=== PATIENT | female | born 1940 | race Caucasian/White ===

== ENCOUNTER 2018-11-19 23:53 | Inpatient (IN) | payer MEDICARE, BC ==
--- NOTE | 2018-11-20 00:07 | ED ---
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 Her says she fell when she was struggling putting up her pants. Her reports a Hx of cognitive impairment. She reports pain is between her knee and her upper thigh on the right side. She rates her pain 7/10 in severity. - History of Current Complaint Stated Complaint: "R HIP PAIN" PER EMS Time Seen by Provider: 11/20/18 00:01 Hx Obtained From: Patient, Family/Foreclosure Field Inspector Mechanism Of Injury: Fall From A Standing Position Pain Intensity: 7 Pain Scale Used: 0-10 Numeric - Allergies/Home Medications Allergies/Adverse Reactions: Allergies Allergy/AdvReac Type Severity Reaction Status Date / Time No Known Allergies Allergy Verified 11/20/18 00:19 Home Medications: Home Medications Donepezil HCl 10 mg PO BID 11/20/18 [History Confirmed 11/20/18] Memantine HCl 10 mg PO BID 11/20/18 [History Confirmed 11/20/18] PMH/Surg Hx/FS Hx/Imm Hx Cardiovascular History: Denies: Hx Pacemaker/ICD Sensory History: Denies: Hx Hearing Aid Neurological History: Reports: Other Neuro Impairments/Disorders - "mild cognitive disorder" Psychiatric History: Denies: Hx Panic Disorder - Surgical History Surgery Procedure, Year, and Place: CATARACTS,HYSTERECTOMY Infectious Disease History: Denies: Traveled Outside the [place] in Last 30 Days - Family History Known Family History: Negative: Other - negativ colorectal CA - Social History Alcohol Use: Rare Substance Use Type: Reports: None Smoking Status (MU): Never Smoked Tobacco Review of Systems Negative: Fever Positive: Other - Right hip, RLE pain. All Other Systems Reviewed And Are Negative: Yes Physical Exam - Summary Physical Exam Summary: Appearance: well appearing, no pain distress Skin: warm, dry, reflects adequate perfusion Head/face: normal. Contusion on her right occiput. Eyes: EOMI, PERRL. ENT: mucous membranes moist. She has hearing aids. Neck: supple, non-tender. Ranges her neck without tenderness. Respiratory: CTA, breath sounds present Cardiovascular: RRR, pulses symmetrical Abdomen: non-tender, soft Bowel Sounds: present Musculoskeletal: normal, strength/ROM intact. Tenderness with flexion at the right hip. No pain in right knee or thigh. Right hip is externally rotated. Neuro: normal, sensory motor intact, A&Ox3 Triage Information Reviewed: Yes Vital Signs On Initial Exam: Temp Pulse Resp BP Pulse Ox 98.5 F 69 18 162/71 98 11/20/18 00:10 11/20/18 00:10 11/20/18 00:40 11/20/18 00:10 11/20/18 00:10 Vital Signs Reviewed: Yes Diagnostics - Vital Signs Temp Pulse Resp BP Pulse Ox 98.5 F 69 18 162/71 98 11/20/18 00:10 11/20/18 00:10 11/20/18 00:40 11/20/18 00:10 11/20/18 00:10 - Laboratory Result Diagrams: 11/20/18 00:18 11/20/18 00:18 Lab Statement: Any lab studies that have been ordered have been reviewed, and results considered in the medical decision making process. - Radiology CXR Radiology Interpretation Completed By: ED Physician Summary of Radiographic Findings: No acute process. Pending offical radiologist report. Hip XR Radiology Interpretation Completed By: ED Physician Summary of Radiographic Findings: Right femoral neck fracture. Pending official radiologist report. - CT Brain CT Interpretation Completed By: ED Physician Summary of CT Findings: No acute process. Pending official radiologist report. - EKG 0123 Cardiac Rate: NL - 70 BPM EKG Rhythm: Sinus Rhythm ST Segment: Non-Specific Summary of EKG Findings: Normal axis, normal interval. Lower Extremity Course/Dx - Course Course Of Treatment: Nurses' notes reviewed. Patient with painful, externally rotated right hip after fall. Head CT negative. X-ray of the pelvis indicates right femoral neck fracture. Orthopedic surgeon was contacted and will see the patient in consultation. Hospitalist to admit. No blood thinners other than daily baby aspirin. Prado catheter placed and patient treatment for discomfort. - Diagnoses Differential Diagnosis/HQI/PQRI: Positive: Contusion, Dislocation, Fracture ( Closed) Provider Diagnoses: Fracture of femoral neck, right - Physician Notifications Discussed Care Of Patient With: Angelica Zurita - Orthopedic Surgeon Time Discussed With Above Provider: 01:33 - Patient admitted by Dr. aKtz, Hospitalist. Dr. Zurita notified. Instructed by Provider To: Admit As Inpatient Discharge - Sign-Out/Discharge Documenting (check all that apply): Patient Departure - Admission - Discharge Plan Condition: Fair Disposition: ADMITTED TO [facility] - Billing Disposition and Condition Condition: FAIR Disposition: Admitted to [facility] - Attestation Statements Document Initiated by Beni: Yes Documenting Scribe: Kam Parra Provider For Whom Beni is Documenting (Include Credential): Juan Stringer MD Scribe Attestation: Kam Garcia, scribed for Juan Stringer MD on 11/20/18 at 0237. Scribe Documentation Reviewed: Yes Provider Attestation: The documentation as recorded by the Kam handley accurately reflects the service I personally performed and the decisions made by , Juan Stringer MD Status of Scribe Document: Viewed
[2018-11-20] MEDS ORDERED: Ondansetron INJ* 2 MG/ML VIAL IV ONE (00:08)
[2018-11-20] MEDS ORDERED: Morphine 4 MG/ML VIAL (1 ml) 4 MG/ML VIAL IV ONE (00:09)
[2018-11-20 00:49] LABS: Albumin 4.1 g/dL (3.2-5.2); Albumin/Globulin Ratio 1.7 (1-3); BUN/Creatinine Ratio 22.4 (8-20); Calcium 9.6 mg/dL (8.6-10.3); EGFR African American 66.1 (>60); EGFR Non-African American 54.6 (>60); Globulin 2.4 g/dL (2-4); Potassium 3.3 mmol/L (3.5-5.0); Total Bilirubin 0.4 mg/dL (0.2-1.0); Total Protein 6.5 g/dL (6.4-8.9)
[2018-11-20 00:55] LABS: INR 0.97 (0.82-1.09)
[2018-11-20 01:00] LABS: ABS Basophils 0.1 10^3/ul (0-0.2); ABS Eosinophils 0.1 10^3/ul (0-0.6); ABS Lymphocytes 2.3 10^3/ul (1.0-4.8); ABS Monocytes 1.2 10^3/ul (0-0.8); ABS Neutrophils 7.9 10^3/ul (1.5-7.7); Hematocrit 39 % (35-47); Lymphocyte % 20.1 %; Mean Corpuscular HGB Conc 33 g/dL (31-36); Mean Corpuscular Hemoglobin 32 pg (27-31); Mean Corpuscular Volume 96 fL (80-97); Mean Platelet Volume 8.6 fL (7.4-10.4); Platelet Count 212 10^3/uL (150-450); Red Blood Count 4.09 10^6 /uL (3.70-4.87); Red Cell Distribution Width 14 % (10-15); White Blood Count 11.6 10^3/uL (3.5-10.8)
[2018-11-20] MEDS ORDERED: NS 0.9% 1000 ML** 1,000 ML IV SCH (02:00)
[2018-11-20] MEDS ORDERED: Ketorolac INJ* 15 MG/ML 1 ML VIAL IV PUSH PRN (02:03)
[2018-11-20] MEDS ORDERED: Morphine INJ* 2 MG/ML 1 ML SYRINGE (TWO MG - NEW SYRINGE VERSION) IV PRN (02:03)
[2018-11-20] MEDS ORDERED: Ondansetron INJ* 2 MG/ML VIAL IV PRN (03:00)
--- NOTE | 2018-11-20 06:33 | HP ---
HISTORY AND PHYSICAL: DATE OF ADMISSION: 11/20/18 PRIMARY CARE PROVIDER: Long Jacobs MD., and Eliane Deshpande NP. RESIDENTIAL SUBCONTRACTOR: Johnie Gomez, the patient's . CODE STATUS: Full. SOURCE OF INFORMATION: HPI is obtained from . The patient is a poor historian secondary to clinical status. CHIEF COMPLAINT: Fall and right hip pain. HISTORY OF PRESENT ILLNESS: This is an 78-year-old female with a past medical history of dementia, oriented to self at baseline and independent in most ADLs with the exception of dressing, otherwise healthy woman, who resides at home with her , who is presenting tonight status post mechanical fall. She was struggling to pull up her stockings and sitting on the bed, slipped and fell with her socks against the hardwood floors and was found out of bed and had right hip pain and was unable to stand. Thus her called the emergency room. She continues to report pain between her knee and her upper thigh on the right side. Baseline functional status: She is independent in most ADLs with the exception of dressing and dependent in all IADLs, Oriented to self at baseline only. Ambulates independently. EMERGENCY ROOM COURSE: In the emergency room, vital signs are temperature 98.5 , pulse rate 69, respiratory rate 16, oxygen saturation 98% on room air, and blood pressure 162/71. Labs were done, which showed mild leukocytosis to 11, potassium of 3.3, glucose of 125, but otherwise unremarkable. Imaging was done , including a head CT that showed no acute intracranial pathology. Chest x-ray , which showed no acute cardiopulmonary disease and a hip and pelvis x-ray, which showed a right femoral neck fracture. EKG was done that showed normal sinus rhythm, QTc of 461. Orthopedic Surgery was made aware and asked the hospitalist team to admit the patient for further evaluation. PAST MEDICAL HISTORY: Dementia. Per last MMSE is 15/30. PAST SURGICAL HISTORY: History of hysterectomy, partial. MEDICATIONS: 1. Memantine 10 mg p.o. b.i.d. 2. Estradiol 0.03 mg daily topically. 3. Donepezil 10 mg p.o. b.i.d. ALLERGIES: No known drug allergies. FAMILY HISTORY: Her mother from [place]. Her father is from heart disease. 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 Currently resides with her who is her primary caregiver. She is independent in most ADLs with the exception of dressing and dependent in all IADLs. She is a former smoker for 1 to 2 years, having quit over 30 years ago. She is a former social drinker, with no alcohol use in the last 20 years. She is a never illicit user. She currently ambulates unassisted. REVIEW OF SYSTEMS: Largely unable to be obtained directly from the patient secondary to her clinical status. reviews the following. Constitutional: He denies fevers, chills, malaise. HEENT: Denies headaches, vision changes or complaints of sore throat. Cardiovascular: Denies chest pain , palpitations or orthopnea. Respiratory: Denies shortness of breath, cough or pleuritic chest pain. GI: Negative for nausea, vomiting, diarrhea or abdominal pain. : Negative for dysuria or hematuria. Musculoskeletal: Negative for myalgias, arthralgias or weakness with the exception of current right hip pain. Skin: Negative for rashes or lesions. Neurologic: Negative for new focal weakness or numbness. Psychiatric: Negative for new depression or anxiety. Endocrine: Negative for polyuria or polydipsia. Heme: Negative for bruising, bleeding or lymphadenopathy. PHYSICAL EXAMINATION GENERAL APPEARANCE: This is a pleasant, hard of hearing woman, in no acute distress, lying in a stretcher, oriented to herself at baseline. Repeats herself and follows commands. VITAL SIGNS: At the time of physical exam, blood pressure is 150/80, pulse rate 70, respiratory rate 18, satting 100% on room air. HEENT: Pupils are equal and reactive. Extraocular muscles are intact. Mucous membranes are moist. No oral lesions. NECK: Supple with no supraclavicular or cervical lymphadenopathy. LUNGS: Clear to auscultation bilaterally. CARDIAC: Regular rate and rhythm with no murmurs, rubs or gallops. Belly is soft, nontender, nondistended, with normoactive bowel sounds. MUSCULOSKELETAL: She moves all 4 limbs spontaneously. Sensation intact in all 4 limbs. Her right leg is externally rotated and turned out. EXTREMITIES: She has 2+ pulses in bilateral lower extremities, warm and well- perfused. NEURO: Cranial nerves II through XII are intact. She is oriented to herself. She has no focal neurologic deficits. SKIN: Without rashes or lesions. DIAGNOSTIC STUDIES/LAB DATA: CBC shows white blood cell count of 11.6, hemoglobin 13, hematocrit 39, platelets 212. INR is 0.97. Sodium 139, potassium 3.3, chloride 106, carbon dioxide 23, anion gap 10, BUN 22, creatinine 0.98, glucose 125, lactic acid 1.9. AST 21, ALT 19, alk phos 45. Troponin 0. Albumin 4.1. Imaging: Head CT shows no acute intracranial pathology. Chest x-ray shows no active cardiopulmonary disease. Hip and pelvis x-ray shows right femoral neck fracture. EKG: Normal sinus rhythm, with no active ischemia. Imaging, labs, and EKG reviewed by myself. ASSESSMENT AND PLAN: This is an 78-year-old female with a past medical history of dementia, who is presenting status post mechanical fall with a right femoral neck fracture. She will be admitted for surgical evaluation by the orthopedic team. 1. Right femoral neck fracture: Plan per orthopedic team. Orthopedic surgeons were contacted by emergency room providers. 2. Dementia: [id number] at baseline without behavioral disturbances. Mini-Mental State Examination 15/30 on last testing per . Continue home medications. 3. FEN: N.p.o. for now. 4. DVT: SCDs for now and ultimate anticoagulation plan per orthopedic team, will hold given may be an operative candidate. 5. Code status: Full. 6. Disposition: Stable for admission on the medical service to the surgical short- stay. TIME SPENT: Thirty minutes were spent on the planning of this admission with over half of that spent directly at the bedside with the patient, providing direct patient care. Plan of care was discussed with the patient's , who has no further questions. [id number]/[facility] #: [id number] [facility]
--- NOTE | 2018-11-20 11:05 | PN ---
Subjective Date of Service: 11/20/18 Interval History: Pain control OK. Patient offers no c/o, denies hunger or thirst. Objective Active Medications: Acetaminophen (Tylenol Tab*) 650 mg PO Q6H PRN PRN Reason: FEVER/PAIN Ketorolac Tromethamine (Toradol Inj*) 15 mg IV PUSH Q6H PRN PRN Reason: PAIN Memantine (Namenda Tab*) 10 mg PO BID [facility] Morphine Sulfate (Morphine Inj (Syringe))*) 2 mg IV Q2H PRN PRN Reason: PAIN Last Admin: 11/20/18 04:20 Dose: 2 mg Pto: Donepezil 10mg (Tab) 1 dose PO DAILY [facility] Ondansetron HCl (Zofran Inj*) 4 mg IV Q4H PRN PRN Reason: NAUSEA/VOMITING Potassium Chloride (Klor Con Er Tab*) 20 meq PO BID [facility] Vital Signs - 8 hr 11/20/18 11/20/18 11/20/18 03:22 03:27 04:20 Temperature 98.4 F Pulse Rate 67 Respiratory 16 16 20 Rate Blood Pressure 146/56 (mmHg) O2 Sat by Pulse 100 Oximetry 11/20/18 11/20/18 07:53 07:54 Temperature 98.5 F Pulse Rate 68 Respiratory 18 16 Rate Blood Pressure 146/48 (mmHg) O2 Sat by Pulse 97 Oximetry Oxygen Devices in Use Now: None Appearance: Alert, partly up in bed. In good spirits. Looks comfortable. Eyes: No Scleral Icterus Respiratory: Symmetrical Chest Expansion and Respiratory Effort, Clear to Auscultation, Clear to Percussion Cardiovascular: NL Sounds; No Murmurs; No JVD, RRR, No Edema Extremities: No Edema, No Clubbing, Cyanosis, - Skin: No Rash or Ulcers, No Nodules or Sclerosis, - Neurological: NL Sensation, - - Poor short term memory, Result Diagrams: 11/20/18 00:18 11/20/18 00:18 Assess/Plan/Problems-Billing Assessment: - Patient Problems (1) Hip fracture Current Visit: Yes Status: Acute Code(s): S72.009A - FRACTURE OF UNSP PART OF NECK OF UNSP FEMUR, INIT SNOMED Code(s): 341818355 Comment: Plan for hemiarthroplasty 11/21. Patient medically optimized for surgery. A urine sample can be obtained in the OR for U/A/reflex C&S (family declined Prado). The most likely post-op problem would be delirium, which could as well occur withour surgery. (2) Dementia Current Visit: Yes Status: Acute Code(s): F03.90 - UNSPECIFIED DEMENTIA WITHOUT BEHAVIORAL DISTURBANCE SNOMED Code(s): 36689185 Comment: Poor memory and disoriented but cooperative and calm. I spoke with her about her cognitive function, which has likely declined with the stress of hip fracture, pain, narcotics, hospitalization.
[2018-11-20] MEDS: DONEPEZIL 10 MG PO SCH (11:08)
[2018-11-20] MEDS: Potassium Chlor TAB* 20 MEQ TAB.ER PO SCH ×2 (11:08→21:22)
[2018-11-20] MEDS: MEMANTINE 10 MG PO SCH ×2 (11:09→21:22)
[2018-11-20] MEDS: Acetaminophen TAB* 325 MG PO PRN ×2 (11:09→18:21)
--- NOTE | 2018-11-20 12:07 | CONS ---
ORTHOPEDIC CONSULTATION NOTE: DATE OF CONSULT: 11/20/18 Thank you for this orthopedic consultation. CHIEF COMPLAINT: Right hip pain. HISTORY OF PRESENT ILLNESS: Ms. Gomez is an 78-year-old female who had a mechanical fall off of her bed last evening on 11/19/18. She had immediate 10/ 10 right hip pain and was unable to stand or walk because of the pain. She was brought to [facility] by ambulance and found to have a femoral neck fracture. She has significant dementia at baseline and resides with her who is her primary caregiver. She is independent of most ADLs, but with the exception of dressing, she normally ambulates independently per her . PAST MEDICAL HISTORY: Dementia per , last MMSE is 15/30. PAST SURGICAL HISTORY: Partial hysterectomy. HOME MEDICATIONS: 1. Memantine 10 mg p.o. b.i.d. 2. Estradiol 0.03 mg daily topically. 3. Donepezil 10 mg p.o. b.i.d. ALLERGIES: No known drug allergies. FAMILY HISTORY: Maternal, cancer. Paternal, heart disease. SOCIAL HISTORY: The patient has extensive dementia, resides with her who is her primary caregiver. 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 No tobacco or alcohol use. Normally independent ambulator. REVIEW OF SYSTEMS: A 14 systems reviewed with the patient and her today. Positive for recent fall, right hip pain, memory loss. Otherwise, review of systems is negative or not relevant. PHYSICAL EXAM: General: The patient is a well-nourished female, in no apparent distress, alert and oriented x1. is at her bedside, pleasant mood, appropriate affect. Vitals: Temperature 98.5, pulse 68, blood pressure 146/48. Gait is not assessed. Balance is not assessed. Coordination normal. HEENT: Atraumatic, normocephalic. Pupils equal and reactive to light. Chest: Unlabored breathing. Abdomen: Soft, nontender, nondistended, bowel sounds 4 quadrants. Bilateral Upper Extremities: The patient's skin has some scattered ecchymoses. No open wounds. She can forward flex at the shoulders without instability bilaterally. She has 4+/5 senior engineering manager strength. Full sensation to light touch in all nerve distributions and 2+ palpable radial pulses. No edema, varicosities or hyperreflexia. Right Lower Extremity: The patient's skin is intact. She has no abrasions or open wounds. The leg is shortened and externally rotated. Any motion at the hip or knee causes severe hip pain distally. At the ankle, she demonstrates dorsiflexion, plantar flexion, EHL and FHL. She has full sensation to light touch in all nerve distributions and 2 + palpable DP pulse. No edema or hyperreflexia. Scattered varicosities. Left Lower Extremity: The patient's skin is intact. No abrasions or open wounds. No palpable masses or lymph nodes. She flexes the hip and knee without pain distally. No edema, hyperreflexia or scattered varicosities. 5/5 ankle dorsiflexion and plantarflexion strength. Full sensation to light touch in all nerve distributions and 2+ palpable DP pulse. DIAGNOSTIC STUDIES/LAB DATA: Radiographs: Multiple views of the right hip show displaced femoral neck fracture. Osteopenia is evident. Brain CT from 11/20/18, shows age-related volume loss and chronic microvascular ischemic disease, but no acute intracranial pathology. Her labs show white blood cells 11.6, hematocrit 39, platelets 212, INR 0.97. Sodium 139, potassium 3.3, chloride 106, BUN and creatinine 22 and 0.98. ASSESSMENT AND PLAN: Ms. Gomez is an 78-year-old demented female with displaced right femoral neck fracture. The patient's caregiver and decision maker is her due to her severe dementia. Although the patient can comply with physical exam, she is not competent to decide on surgical options. The patient's and I discussed operative and nonoperative treatment options. The patient's is wary of surgery for several reasons including financial, possible healing without surgery and the risks of surgery. Today, we did spend at least one-half hour or 30 minutes discussing the risks of surgery. Frankly, I have uncomfortable proceeding with surgery today for the patient. Her does not have a solid answer on whether he wishes to proceed. He does understand that my best medical recommendation is to proceed with the right hip hemiarthroplasty. We discussed the risk of morbidity and mortality including but not limited to bleeding, infection, damage to nearby structures, continued pain, need for further surgery, intraoperative fracture, nerve palsy, dislocation, leg length discrepancy, stroke, heart attack, blood clot, and . At this time, he is not sure that he wishes to proceed. He understands I will respect his wishes if he chooses nonoperative care. I did explain to him the risks of nonoperative care including decubitus ulcers, respiratory problems, and . For now, the patient will be on bedrest with p.r.n. analgesia. She should have a Prado catheter. She can eat today. Please make her n.p.o. after midnight for possible surgery tomorrow. The patient's will think this over and contact his insurance company. We will plan on a possible right hip hemiarthroplasty tomorrow on 11/21/18. I am available at 5 p.m. to do the surgery if he wishes to proceed. [id number]/[facility] #: [id number] [facility]
--- NOTE | 2018-11-21 06:53 | PN ---
Progress Note - Progress Note Date of Service: 11/21/18 SOAP: Subjective: Pt. is alert and nad. at bedside. Objective: Vital Signs: Temp Pulse Resp BP Pulse Ox 98.4 F 84 16 138/76 97 11/21/18 04:15 11/21/18 04:15 11/21/18 04:15 11/21/18 04:15 11/21/18 04:15 RLE - skin intact, leg externally rotated and shortened. distally nvi. Assessment: 78 yo F s/p fall with R femoral neck fx Plan: npo Pt.'s HCP, her , needed time to decide on surgery - this AM he wishes to proceed. Dr. Garland or I will do R hip ad today. bedrest and prn analgesia
[2018-11-21] MEDS ORDERED: Buffered Lidocaine 1% SYRIN* 1 ML/SYRINGE INTRADERM ONE (08:57)
[2018-11-21] MEDS: DONEPEZIL 10 MG PO SCH ×2 (09:23→21:46)
[2018-11-21] MEDS: MEMANTINE 10 MG PO SCH ×2 (09:24→21:45)
[2018-11-21] MEDS: Acetaminophen TAB* 325 MG PO PRN ×2 (09:24→21:52)
[2018-11-21] MEDS: Lactated Ringers 1000 ML Bag* 1,000 ML IV SCH ×2 (09:25→18:51)
[2018-11-21] MEDS: Potassium Chlor TAB* 20 MEQ TAB.ER PO SCH ×2 (09:25→21:52)
[2018-11-21] MEDS ORDERED: ceFAZolin 2 GM PREMIX in ORs 2 GM/50 ML BAG ONE (12:49)
[2018-11-21] MEDS ORDERED: Midazolam* 1 MG/ML 2 ML VIAL (2 MG) ONE ×2 (12:53→13:28)
[2018-11-21] MEDS ORDERED: fentaNYL* 50 MCG/ML 2 ML VIAL (100 MCG VIAL) ONE ×2 (12:53→13:28)
[2018-11-21] MEDS ORDERED: KETAMINE HCL* 50 MG/ML 10 ML VIAL ONE (13:28)
[2018-11-21] MEDS ORDERED: Lidocaine 2% PF * 5 ML VIAL ONE (13:29)
[2018-11-21] MEDS ORDERED: Famotidine IV* 10 MG/ML 2 ML (20 mg) ONE (13:35)
[2018-11-21] MEDS ORDERED: Ropivacaine (OR use only) 2 MG/ML 10 ML ONE (13:37)
[2018-11-21] MEDS ORDERED: ROPIVACAINE 5 MG/ML 30 ML BTL (0.5%) ONE (13:37)
[2018-11-21] MEDS ORDERED: Bupivacaine 0.5% SDV PF* 30ML VIAL ONE (14:03)
[2018-11-21] MEDS ORDERED: Propofol* 10 MG/ML 20 ML BTL ONE (14:26)
[2018-11-21] MEDS ORDERED: Ondansetron INJ* 2 MG/ML VIAL ONE (15:24)
[2018-11-21] MEDS ORDERED: traMADol TAB* 50 MG PO PRN (16:00)
[2018-11-21] MEDS ORDERED: HYDROcodone/ACETAMIN 5-325 MG* 1 TAB PO PRN (16:26)
[2018-11-21] MEDS ORDERED: Naloxone* 0.4 MG/ML 1 ML VIAL IV PRN (16:26)
[2018-11-21] MEDS ORDERED: fentaNYL* 50 MCG/ML 2 ML VIAL (100 MCG VIAL) IV PRN (16:26)
[2018-11-21] MEDS ORDERED: diPHENhydraMINE IV* 50 MG/ML 1 ml VIAL (BENADRYL) IV PRN (16:26)
--- NOTE | 2018-11-21 17:52 | PN ---
Subjective Date of Service: 11/21/18 Interval History: Patient seen in PACU, ready to return to her room on [facility]. Fully alert, sociable and pleasant. She denies pain, admits to hunger. Objective Active Medications: Acetaminophen (Tylenol Tab*) 650 mg PO Q6H PRN PRN Reason: FEVER/PAIN Last Admin: 11/21/18 09:24 Dose: 650 mg Hydrocodone Bitart/Acetaminophen ([place] 5-325 Tab*) 1 tab PO ONCE PRN PRN Reason: PAIN - MODERATE Diphenhydramine HCl (Benadryl Iv*) 12.5 mg IV ONCE PRN PRN Reason: ITCHING Fentanyl Citrate (Fentanyl*) 25 mcg IV Q5M PRN PRN Reason: PAIN - MODERATE Lactated Ringer's (Lactated Ringers 1000 Ml Bag*) 1,000 mls @ 125 mls/hr IV PER RATE [facility] Last Admin: 11/21/18 09:25 Dose: 125 mls/hr Ketorolac Tromethamine (Toradol Inj*) 15 mg IV PUSH Q6H PRN PRN Reason: PAIN Memantine (Namenda Tab*) 10 mg PO BID [facility] Last Admin: 11/21/18 09:24 Dose: 10 mg Morphine Sulfate (Morphine Inj (Syringe))*) 2 mg IV Q2H PRN PRN Reason: PAIN Last Admin: 11/20/18 04:20 Dose: 2 mg Naloxone HCl (Narcan*) 0.08 mg IV Q2M PRN PRN Reason: severe induced resp depression Pto: Donepezil 10mg (Tab) 1 dose PO DAILY [facility] Last Admin: 11/21/18 09:23 Dose: 1 dose Ondansetron HCl (Zofran Inj*) 4 mg IV Q4H PRN PRN Reason: NAUSEA/VOMITING Potassium Chloride (Klor Con Er Tab*) 20 meq PO BID [facility] Last Admin: 11/21/18 09:25 Dose: 20 meq Vital Signs - 8 hr 11/21/18 11/21/18 11/21/18 11:40 13:38 13:40 Temperature 98.8 F Pulse Rate 66 69 75 Respiratory 17 Rate Blood Pressure 129/51 153/64 160/57 (mmHg) O2 Sat by Pulse 97 98 96 Oximetry 11/21/18 11/21/18 11/21/18 13:45 13:50 13:55 Temperature Pulse Rate 65 79 Respiratory Rate Blood Pressure 137/91 113/57 120/57 (mmHg) O2 Sat by Pulse 98 98 Oximetry 11/21/18 11/21/18 11/21/18 15:52 15:55 16:00 Temperature 97.0 F Pulse Rate 58 55 53 Respiratory 7 9 14 Rate Blood Pressure 103/51 90/49 96/50 (mmHg) O2 Sat by Pulse 100 98 99 Oximetry 11/21/18 11/21/18 11/21/18 16:10 16:15 16:21 Temperature Pulse Rate 69 61 72 Respiratory 11 13 14 Rate Blood Pressure 118/58 120/49 (mmHg) O2 Sat by Pulse 98 97 95 Oximetry 11/21/18 11/21/18 11/21/18 16:31 16:47 17:00 Temperature 97.0 F Pulse Rate 73 68 Respiratory 14 17 Rate Blood Pressure 107/48 105/71 (mmHg) O2 Sat by Pulse 95 96 Oximetry 11/21/18 11/21/18 11/21/18 17:02 17:17 17:30 Temperature 98.2 F Pulse Rate 66 72 Respiratory 13 15 Rate Blood Pressure 140/53 121/62 (mmHg) O2 Sat by Pulse 97 97 Oximetry 11/21/18 17:33 Temperature Pulse Rate 76 Respiratory 18 Rate Blood Pressure 123/68 (mmHg) O2 Sat by Pulse 97 Oximetry Oxygen Devices in Use Now: None Appearance: Alert, supine on PACU stretcher. In good spirits. Looks comfortable. Eyes: No Scleral Icterus Respiratory: Symmetrical Chest Expansion and Respiratory Effort, Clear to Auscultation, Clear to Percussion Cardiovascular: NL Sounds; No Murmurs; No JVD, RRR, No Edema, - Extremities: No Edema, No Clubbing, Cyanosis, - Skin: No Rash or Ulcers, No Nodules or Sclerosis, - Neurological: NL Sensation - Able to state her full name, states her went to get her some food. Disoriented but very pleasant. Result Diagrams: 11/20/18 00:18 11/20/18 00:18 Assess/Plan/Problems-Billing Assessment: - Patient Problems (1) Hip fracture Current Visit: Yes Status: Acute Code(s): S72.009A - FRACTURE OF UNSP PART OF NECK OF UNSP FEMUR, INIT SNOMED Code(s): 756307560 Comment: Hemiarthroplasty 11/21. Satisfactory (brief) post-op course. (2) Dementia Current Visit: Yes Status: Acute Code(s): F03.90 - UNSPECIFIED DEMENTIA WITHOUT BEHAVIORAL DISTURBANCE SNOMED Code(s): 76260085 Comment: Poor memory and disoriented but cooperative and pleasant. Seems to be at her baseline for this hospitalization.
--- NOTE | 2018-11-21 17:55 | OP ---
DATE OF OPERATION: 11/21/18 - ROOM #[id number] DATE OF : 36 ATTENDING SURGEON: Michael Garland MD. MOBILITY ARCHITECT MANAGER: Elle Oh RPA. ANESTHESIA: Regional/spinal/sedation. PRE-OP DIAGNOSIS: Displaced right femoral neck fracture. POST-OP DIAGNOSIS: Displaced right femoral neck fracture. OPERATIVE PROCEDURE: Right hip hemiarthroplasty. ESTIMATED BLOOD LOSS: 50 cc. COMPLICATIONS: None. HARDWARE: Ramya #11 reduced neck M/L Taper, +0, 28 mm head, 44 mm bipolar cup. INDICATIONS: Mrs. Gomez is an 78-year-old female who had fallen at home. She had significant hip pain and was unable to get up, and was brought to the emergency room here at [facility] [place], [place]. X-rays were taken, which had found a displaced right femoral neck fracture. Dr. Zurita had discussed with them a right hip hemiarthroplasty. Risks of surgery such as infection, scar formation, stiffness , DVT, and pulmonary embolism were some of the risks discussed. Dr. Zurita would be available after 5 p.m. and my OR day finished at noon, plus Anesthesia and an OR team were available, so Dr. Zurita had discussed with Mrs. Gomez and her that I would be available and they ould procee earlier if they were willing to have me do the surgery. I had spoken with them about doing the surgery and after reviewing the surgery with them, they were all very willing to proceed. DESCRIPTION OF PROCEDURE: The patient had a block placed in the holding area and was brought back to the OR. Spinal anesthesia was introduced. A Prado catheter was placed and she was rolled into the left lateral decubitus position. Axillary roll was placed and she reported she was quite comfortable. Right hip area was prepped and then draped. Incision was made centered over the greater trochanter and was extended proximally and distally for about 5 cm. Incision was carried down through the skin and subcutaneous tissues. Small bleeders encountered were ligated using electrocautery and fascia was nicely exposed. Fascia was sharply incised and muscle proximally was bluntly split. Sharp Hohmann was placed on the gluteus medius/gluteus minimus and nice exposure of the short external rotators and piriformis was obtained. Using electrocautery, piriformis, short external rotators, and capsule were taken down together from the posterior aspect of the trochanter and fracture was immediately evident. Corkscrew was placed into the femoral head and femoral head was easily removed. Head measured 46 mm in size and she was trialed with 44, 45 and 46 mm heads and I liked the 44 mm head best. Acetabulum was swept multiple times to clear the small remaining bony fragments out. This was also pulse lavaged. Attention was turned to the proximal femur. Cleanup cut was taken and the proximal femur appeared to be in good condition. Box osteotome was used to open the canal and the canal finder was easily passed. Beginning with a 4-broach, she was progressively broached. She had been templated to a 7.5 based on the left side and the 7.5 countersunk some. She was therefore broached to a 9 and then was trialed. She was exquisitely stable to range of motion and with dislocating the hip and then placing the broach handle, it could be seen the stem had loosened. A 10 stem was then placed and she was again taken through a range of motion, and there was just a little bit of play when placing the handle and an 11 broach was placed and this time after ranging the hip, it did not loosen. An 11 stem was called for. The 11 stem was then impacted into place. She was trialed again with the +0, 28 mm head and the 44 mm bipolar cup and had excellent stability. Her leg length appeared good. The 28 mm head followed by the bipolar cup were all impacted into place. Hip was relocated and then copiously pulse lavaged. Piriformis and capsule were repaired together to the posterior aspect of the greater trochanter. Fascia was repaired using interrupted #1 Vicryl sutures. Subcutaneous tissues were reapproximated with 2-0 Vicryl. Skin was closed using arian. Sterile dressing and abduction pillow were applied in the OR. The patient was then rolled on to the hospital bed and was stable on transfer to the recovery room. [id number]/[id number] #: [id number] SUSANNA
[2018-11-21] MEDS: Docusate CAP* 100 MG PO SCH (21:44)
[2018-11-21] MEDS: PTO:Polyethyl Glycol/Propylene Gly OPHTH.SOLN BOTH EYES SCH (21:48)
[2018-11-21] MEDS: ceFAZolin 1 GM* X 3 DOSES POST-OP Q8H (AddVan) IVPB SCH ×2 (23:01)
[2018-11-22] MEDS: Acetaminophen TAB* 325 MG PO PRN (04:02)
[2018-11-22] MEDS: Lactated Ringers 1000 ML Bag* 1,000 ML IV SCH (05:04)
[2018-11-22 05:33] LABS: Hematocrit 32 % (35-47); Hemoglobin 10.5 g/dL (12.0-16.0); Mean Corpuscular HGB Conc 33 g/dL (31-36); Mean Corpuscular Hemoglobin 32 pg (27-31); Mean Corpuscular Volume 96 fL (80-97); Mean Platelet Volume 7.8 fL (7.4-10.4); Platelet Count 138 10^3/uL (150-450); Red Blood Count 3.32 10^6 /uL (3.70-4.87); Red Cell Distribution Width 14 % (10-15); White Blood Count 13.3 10^3/uL (3.5-10.8)
[2018-11-22 05:48] LABS: EGFR African American 94.3 (>60); EGFR Non-African American 77.9 (>60)
[2018-11-22] MEDS: ceFAZolin 1 GM* X 3 DOSES POST-OP Q8H (AddVan) IVPB SCH ×4 (06:03→13:59)
[2018-11-22] MEDS: Heparin VIAL(*) 5000 UNITS/ML VIAL (FIVE THOUSAND) SUBCUT SCH ×3 (06:04→21:55)
[2018-11-22 06:14] LABS: Activated Partial Thrombo Time 31.8 seconds (26.0-38.0); INR 1.21 (0.82-1.09)
[2018-11-22 06:48] LABS: ABS Eosinophils 0.2 10^3/ul (0-0.6); ABS Lymphocytes 1.4 10^3/ul (1.0-4.8); ABS Monocytes 2.1 10^3/ul (0-0.8); ABS Neutrophils 9.5 10^3/ul (1.5-7.7); Eosinophil % 1.2 %; Lymphocyte % 10.9 %
--- NOTE | 2018-11-22 09:00 | PN ---
Progress Note - Progress Note Date of Service: 11/22/18 SOAP: Subjective: []Pt seen at bedside with her present. She feels well without CP, SOB, dizziness or nausea. Hip pain is well controlled. Objective: []General: NAD, answers questions appropriately. RLE: RIght hip dressing CDI, thigh soft, DF/PF intact, DP2+, sensation intact to light touch distally Calves supple and nontender without erythema, edema or palpable cords Assessment: []POD 1 sp Right hemiarthroplasty Plan: []wbat PT/OT, posterior hip precautions PMRU referral in, eval pending heparin DVT prophylaxis Vital Signs Temp 98.4 F 11/22/18 07:22 Pulse 80 11/22/18 07:22 Resp 16 11/22/18 08:44 BP 121/51 11/22/18 07:22 Pulse Ox 96 11/22/18 08:44 Intake & Output 11/21/18 11/22/18 11/22/18 18:59 06:59 18:59 Intake Total 1400 1380 Output Total 375 925 Balance 1025 455 Intake: IV Fluids 1400 980 LR 1400 980 Oral 400 Output: Prado 325 925 Estimated Blood Loss 50 Other: # Bowel Movements 0 Laboratory Last Values WBC 13.3 10^3/uL (3.5-10.8) H 11/22/18 05:22 RBC 3.32 10^6 /uL (3.70-4.87) L 11/22/18 05:22 Hgb 10.5 g/dL (12.0-16.0) L 11/22/18 05:22 Hct 32 % (35-47) L 11/22/18 05:22 MCV 96 fL (80-97) 11/22/18 05:22 MCH 32 pg (27-31) H 11/22/18 05:22 MCHC 33 g/dL (31-36) 11/22/18 05:22 RDW 14 % (10-15) 11/22/18 05:22 Plt Count 138 10^3/uL (150-450) L 11/22/18 05:22 MPV 7.8 fL (7.4-10.4) 11/22/18 05:22 Neut % (Auto) 71.7 % 11/22/18 05:22 Lymph % (Auto) 10.9 % 11/22/18 05:22 [place] % (Auto) 16.0 % 11/22/18 05:22 Eos % (Auto) 1.2 % 11/22/18 05:22 Baso % (Auto) 0.2 % 11/22/18 05:22 Absolute Neuts (auto) 9.5 10^3/ul (1.5-7.7) H 11/22/18 05:22 Absolute Lymphs (auto) 1.4 10^3/ul (1.0-4.8) 11/22/18 05:22 Absolute Monos (auto) 2.1 10^3/ul (0-0.8) H 11/22/18 05:22 Absolute Eos (auto) 0.2 10^3/ul (0-0.6) 11/22/18 05:22 Absolute Basos (auto) 0.0 10^3/ul (0-0.2) 11/22/18 05:22 Absolute Nucleated RBC 0.0 10^3/ul 11/22/18 05:22 Nucleated RBC % 0.0 11/22/18 05:22 INR (Anticoag Therapy) 1.21 (0.82-1.09) H 11/22/18 05:22 APTT 31.8 seconds (26.0-38.0) 11/22/18 05:22 Sodium 139 mmol/L (135-145) 11/20/18 00:18 Potassium 3.3 mmol/L (3.5-5.0) L 11/20/18 00:18 Chloride 106 mmol/L (101-111) 11/20/18 00:18 Carbon Dioxide 23 mmol/L (22-32) 11/20/18 00:18 Anion Gap 10 mmol/L (2-11) 11/20/18 00:18 BUN 14 mg/dL (6-24) 11/22/18 05:22 Creatinine 0.72 mg/dL (0.51-0.95) 11/22/18 05:22 Est GFR ( Amer) 94.3 (>60) 11/22/18 05:22 Est GFR (Non-Af Amer) 77.9 (>60) 11/22/18 05:22 BUN/Creatinine Ratio 22.4 (8-20) H 11/20/18 00:18 Glucose 125 mg/dL (70-100) H 11/20/18 00:18 Lactic Acid 1.9 mmol/L (0.5-2.0) 11/20/18 00:18 Calcium 9.6 mg/dL (8.6-10.3) 11/20/18 00:18 Total Bilirubin 0.40 mg/dL (0.2-1.0) 11/20/18 00:18 AST 21 U/L (13-39) 11/20/18 00:18 ALT 19 U/L (7-52) 11/20/18 00:18 Alkaline Phosphatase 45 U/L (34-104) 11/20/18 00:18 Troponin I 0.00 ng/mL (<0.04) 11/20/18 00:18 Total Protein 6.5 g/dL (6.4-8.9) 11/20/18 00:18 Albumin 4.1 g/dL (3.2-5.2) 11/20/18 00:18 Globulin 2.4 g/dL (2-4) 11/20/18 00:18 Albumin/Globulin Ratio 1.7 (1-3) 11/20/18 00:18 Blood Type A Positive 11/20/18 00:18 Antibody Screen Negative 11/20/18 00:18
[2018-11-22 09:41] LABS: BUN/Creatinine Ratio 14.3 (8-20); Calcium 8.6 mg/dL (8.6-10.3); EGFR African American 87.3 (>60); EGFR Non-African American 72.1 (>60)
[2018-11-22] MEDS: MEMANTINE 10 MG PO SCH ×2 (10:11→20:28)
[2018-11-22] MEDS: Docusate CAP* 100 MG PO SCH ×2 (10:12→20:28)
[2018-11-22] MEDS: DONEPEZIL 10 MG PO SCH (10:12)
[2018-11-22] MEDS: Potassium Chlor TAB* 20 MEQ TAB.ER PO SCH ×2 (10:13→20:28)
[2018-11-22] MEDS: Magnesium Hydroxide LIQ* 30 ML UDC PO PRN (10:14)
[2018-11-22] MEDS: PTO:Polyethyl Glycol/Propylene Gly OPHTH.SOLN BOTH EYES SCH ×2 (10:16→20:34)
--- NOTE | 2018-11-22 13:42 | PN ---
Subjective Date of Service: 11/22/18 Interval History: Patient has no complaints. She says she wants to get up. She did get to chair w / assist w/ PT today. is hoping for PMRU stay after acute stay. Has been eating, no BM yet. Denies pain. Denies cough, chest pressure. Family History: Unchanged from Admission Social History: Unchanged from Admission Past Medical History: Unchanged from Admission Objective Active Medications: Acetaminophen (Tylenol Tab*) 650 mg PO Q6H PRN PRN Reason: FEVER/PAIN Last Admin: 11/22/18 04:02 Dose: 650 mg Docusate Sodium (Colace Cap*) 100 mg PO BID [facility] Last Admin: 11/22/18 10:12 Dose: 100 mg Heparin Sodium (Porcine) (Heparin Vial(*)) 5,000 units SUBCUT Q8HR [facility] Last Admin: 11/22/18 06:04 Dose: 5,000 units Lactated Ringer's (Lactated Ringers 1000 Ml Bag*) 1,000 mls @ 125 mls/hr IV PER RATE [facility] Last Admin: 11/22/18 05:04 Dose: 125 mls/hr Cefazolin Sodium 1 gm/ Sodium (Chloride) 50 mls @ 200 mls/hr IVPB Q8H [facility] Stop: 11/22/18 14:44 Last Admin: 11/22/18 06:03 Dose: 200 mls/hr Ketorolac Tromethamine (Toradol Inj*) 15 mg IV PUSH Q6H PRN PRN Reason: PAIN Magnesium Hydroxide (Milk Of Magnesia Liq*) 30 ml PO BID PRN PRN Reason: CONSTIPATION Last Admin: 11/22/18 10:14 Dose: 30 ml Memantine (Namenda Tab*) 10 mg PO BID [facility] Last Admin: 11/22/18 10:11 Dose: 10 mg Morphine Sulfate (Morphine Inj (Syringe))*) 2 mg IV Q2H PRN PRN Reason: PAIN Last Admin: 11/20/18 04:20 Dose: 2 mg Pto: Nft*Donepezil (10mg Tablet*) 1 dose PO BID [facility] Last Admin: 11/22/18 10:12 Dose: 1 dose Ondansetron HCl (Zofran Inj*) 4 mg IV Q4H PRN PRN Reason: NAUSEA/VOMITING Polyethyl Glycol/Propylene Glycol (Lubricant Eye Drops) 1 drop BOTH EYES BID [facility] Last Admin: 11/22/18 10:16 Dose: 1 drop Potassium Chloride (Klor Con Er Tab*) 20 meq PO BID [facility] Last Admin: 11/22/18 10:13 Dose: 20 meq Tramadol HCl (Ultram*) 50 mg PO Q6H PRN PRN Reason: PAIN Vital Signs - 8 hr 11/22/18 11/22/18 11/22/18 07:22 08:44 11:50 Temperature 36.9 C 37.5 C Pulse Rate 80 87 Respiratory 18 16 16 Rate Blood Pressure 121/51 111/47 (mmHg) O2 Sat by Pulse 96 96 98 Oximetry Oxygen Devices in Use Now: None Appearance: alert, no distress Neck: No Thyroid Enlargement, Masses Respiratory: Clear to Auscultation Cardiovascular: NL Sounds; No Murmurs; No JVD Abdominal: NL Sounds; No Tenderness; No Distention Skin: - - RT hip bandage intact Lines/Tubes/Other Access: Clean, Dry and Intact Prado, Clean, Dry and Intact Peripheral IV Result Diagrams: 11/22/18 05:22 11/22/18 09:07 Assess/Plan/Problems-Billing Assessment: 78 year old with RT hip fracture, s/p ORIF on 11/21 - Patient Problems (1) Hip fracture Current Visit: Yes Status: Acute Priority: High Code(s): S72.009A - FRACTURE OF UNSP PART OF NECK OF UNSP FEMUR, INIT SNOMED Code(s): 001440252 Comment: -POD 1, doing well, has participated w/ PT -Pain control, constipation prevention per current orders from ortho (2) Dementia Current Visit: Yes Status: Acute Priority: Medium Code(s): F03.90 - UNSPECIFIED DEMENTIA WITHOUT BEHAVIORAL DISTURBANCE SNOMED Code(s): 31792570 Comment: -Patient cooperative and pleasant. -I think she can participate w/ PMRU adequately. Status and Disposition: PMRU vs STR in 1-2 days
[2018-11-22] MEDS: DONEPEZIL HCL 10 MG PO SCH (20:29)
[2018-11-22] MEDS ORDERED: DONEPEZIL HCL 10 MG PO SCH (21:00)
[2018-11-22] MEDS ORDERED: DONEPEZIL 10 MG PO SCH (21:00)
[2018-11-23] MEDS: Heparin VIAL(*) 5000 UNITS/ML VIAL (FIVE THOUSAND) SUBCUT SCH (05:28)
[2018-11-23 06:49] LABS: Hematocrit 32 % (35-47); Hemoglobin 10.6 g/dL (12.0-16.0); Mean Corpuscular HGB Conc 34 g/dL (31-36); Mean Corpuscular Hemoglobin 32 pg (27-31); Mean Corpuscular Volume 96 fL (80-97); Mean Platelet Volume 8.4 fL (7.4-10.4); Platelet Count 149 10^3/uL (150-450); Red Cell Distribution Width 14 % (10-15)
[2018-11-23] MEDS: Acetaminophen TAB* 325 MG PO PRN (07:45)
[2018-11-23 07:49] VITALS: BP 127/53
[2018-11-23 07:50] LABS: ABS Eosinophils 0.1 10^3/ul (0-0.6); ABS Lymphocytes 1.3 10^3/ul (1.0-4.8); ABS Monocytes 2.6 10^3/ul (0-0.8); ABS Neutrophils 11.9 10^3/ul (1.5-7.7); Eosinophil % 0.9 %; Lymphocyte % 8.2 %
[2018-11-23] MEDS ORDERED: Magnesium Hydroxide LIQ* 30 ML UDC PO PRN (08:38)
[2018-11-23] MEDS ORDERED: Senna TAB PO PRN (08:38)
[2018-11-23] MEDS ORDERED: Polyethylene Glycol 3350* 17 GM PACKET PO PRN (08:38)
[2018-11-23] MEDS: MEMANTINE 10 MG PO SCH (08:40)
[2018-11-23] MEDS: Potassium Chlor TAB* 20 MEQ TAB.ER PO SCH (08:42)
[2018-11-23] MEDS: Docusate CAP* 100 MG PO SCH (08:42)
[2018-11-23] MEDS: Magnesium Hydroxide LIQ* 30 ML UDC PO PRN (08:42)
[2018-11-23] MEDS: DONEPEZIL HCL 10 MG PO SCH (08:44)
[2018-11-23] MEDS: PTO:Polyethyl Glycol/Propylene Gly OPHTH.SOLN BOTH EYES SCH (08:45)
[2018-11-23] MEDS ORDERED: Docusate CAP* 100 MG PO SCH (09:00)
[2018-11-23] MEDS ORDERED: Magnesium Hydroxide LIQ* 30 ML UDC PO SCH (09:00)
--- NOTE | 2018-11-23 09:53 | PN ---
Subjective Date of Service: 11/23/18 Interval History: Patient had mild fever this AM. Denies cough, no dysuria. She has had urinary frequency for months, no real incontinence. Had torres removed yesterday. Overnight had some incontinence. Family History: Unchanged from Admission Social History: Unchanged from Admission Past Medical History: Unchanged from Admission Objective Active Medications: Acetaminophen (Tylenol Tab*) 650 mg PO Q6H PRN PRN Reason: FEVER/PAIN Last Admin: 11/23/18 07:45 Dose: 650 mg Docusate Sodium (Colace Cap*) 100 mg PO BID [facility] Last Admin: 11/23/18 08:42 Dose: 100 mg Heparin Sodium (Porcine) (Heparin Vial(*)) 5,000 units SUBCUT Q8HR [facility] Last Admin: 11/23/18 05:28 Dose: 5,000 units Ketorolac Tromethamine (Toradol Inj*) 15 mg IV PUSH Q6H PRN PRN Reason: PAIN Magnesium Hydroxide (Milk Of Magnesia Liq*) 30 ml PO BID PRN PRN Reason: CONSTIPATION Last Admin: 11/23/18 08:42 Dose: 30 ml Magnesium Hydroxide (Milk Of Magnesia Liq*) 30 ml PO BID [facility] Last Admin: 11/23/18 08:54 Dose: Not Given Magnesium Hydroxide (Milk Of Magnesia Liq*) 30 ml PO BID PRN PRN Reason: CONSTIPATION Memantine (Namenda Tab*) 10 mg PO BID [facility] Last Admin: 11/23/18 08:40 Dose: 10 mg Morphine Sulfate (Morphine Inj (Syringe))*) 2 mg IV Q2H PRN PRN Reason: PAIN Last Admin: 11/20/18 04:20 Dose: 2 mg Ondansetron HCl (Zofran Inj*) 4 mg IV Q4H PRN PRN Reason: NAUSEA/VOMITING Polyethyl Glycol/Propylene Glycol (Lubricant Eye Drops) 1 drop BOTH EYES BID [facility] Last Admin: 11/23/18 08:45 Dose: 1 drop Polyethylene Glycol/Electrolytes (Miralax*) 17 gm PO DAILY PRN PRN Reason: CONSTIPATION Potassium Chloride (Klor Con Er Tab*) 20 meq PO BID [facility] Last Admin: 11/23/18 08:42 Dose: 20 meq Senna (Senokot Tab*) 1 tab PO BEDTIME PRN PRN Reason: CONSTIPATION Tramadol HCl (Ultram*) 50 mg PO Q6H PRN PRN Reason: PAIN Vital Signs - 8 hr 11/23/18 11/23/18 04:01 07:30 Temperature 37.4 C 37.1 C Pulse Rate 93 87 Respiratory 20 16 Rate Blood Pressure 140/54 127/53 (mmHg) O2 Sat by Pulse 93 94 Oximetry Oxygen Devices in Use Now: None Appearance: alert, no distress Neck: NL Appearance and Movements; NL JVP Respiratory: Symmetrical Chest Expansion and Respiratory Effort, Clear to Auscultation Cardiovascular: NL Sounds; No Murmurs; No JVD Abdominal: NL Sounds; No Tenderness; No Distention Neurological: Alert and Oriented x 3 Lines/Tubes/Other Access: Clean, Dry and Intact Peripheral IV Nutrition: Taking PO's Result Diagrams: 11/23/18 06:29 11/22/18 09:07 Diagnostic Imaging: CXR neg today Assess/Plan/Problems-Billing Assessment: 78 year old with RT hip fracture, s/p ORIF on 11/21 - Patient Problems (1) Hip fracture Current Visit: Yes Status: Acute Priority: High Code(s): S72.009A - FRACTURE OF UNSP PART OF NECK OF UNSP FEMUR, INIT SNOMED Code(s): 953342094 Comment: -POD 2, doing well, has participated w/ PT -Can go to PMRU today (2) Dementia Current Visit: Yes Status: Acute Priority: Medium Code(s): F03.90 - UNSPECIFIED DEMENTIA WITHOUT BEHAVIORAL DISTURBANCE SNOMED Code(s): 09647140 Comment: -Patient cooperative and pleasant. -Through repetition I believe she can learn from rehab to walk, etc (3) Fever Current Visit: Yes Status: Acute Priority: Medium Code(s): R50.9 - FEVER, UNSPECIFIED SNOMED Code(s): 416622961 Comment: -WBC elevated, may be due to reaction to surgery -Mild fever also documented, no localizing symptoms -Will have UA today, r/o UTI -CXR today shows no pneumonia. Status and Disposition: PMRU today
--- NOTE | 2018-11-23 10:43 | PN ---
Progress Note - Progress Note Date of Service: 11/23/18 SOAP: Subjective: []Pt seen at bedside. She has no complaints but she is confused today more than yesterday. Her WBC is elevated, CXR and UA ordered by medicine. Objective: [] General: NAD, continues to answer questions appropriately. She is hard of hearing RLE: Right hip dressing changed, incision CDI, thigh soft, DF/PF intact, DP2+, sensation intact to light touch distally Calves supple and nontender without erythema, edema or palpable cords Assessment: []POD 2 sp Right hemiarthroplasty Plan: []wbat PT/OT, posterior hip precautions PMRU when medically ready lovenox 40 mg sq qd x 30 days post op Vital Signs Temp 98.8 F 11/23/18 07:30 Pulse 87 11/23/18 07:30 Resp 16 11/23/18 08:00 BP 127/53 11/23/18 07:30 Pulse Ox 94 11/23/18 07:30 Intake & Output 11/22/18 11/23/18 11/23/18 18:59 06:59 18:59 Intake Total 1535 560 Output Total 550 75 Balance 985 560 -75 Intake: IV Fluids 990 LR 990 IVPB 105 NS 105 Oral 440 560 Output: Urine 75 Prado 550 Other: Estimated Void Large # Bowel Movements 0 # Voids 1 Laboratory Last Values WBC 16.0 10^3/uL (3.5-10.8) H 11/23/18 06:29 RBC 3.30 10^6 /uL (3.70-4.87) L 11/23/18 06:29 Hgb 10.6 g/dL (12.0-16.0) L 11/23/18 06:29 Hct 32 % (35-47) L 11/23/18 06:29 MCV 96 fL (80-97) 11/23/18 06:29 MCH 32 pg (27-31) H 11/23/18 06:29 MCHC 34 g/dL (31-36) 11/23/18 06:29 RDW 14 % (10-15) 11/23/18 06:29 Plt Count 149 10^3/uL (150-450) L 11/23/18 06:29 MPV 8.4 fL (7.4-10.4) 11/23/18 06:29 Neut % (Auto) 74.3 % 11/23/18 06:29 Lymph % (Auto) 8.2 % 11/23/18 06:29 [place] % (Auto) 16.4 % 11/23/18 06:29 Eos % (Auto) 0.9 % 11/23/18 06:29 Baso % (Auto) 0.2 % 11/23/18 06:29 Absolute Neuts (auto) 11.9 10^3/ul (1.5-7.7) H 11/23/18 06:29 Absolute Lymphs (auto) 1.3 10^3/ul (1.0-4.8) 11/23/18 06:29 Absolute Monos (auto) 2.6 10^3/ul (0-0.8) H 11/23/18 06:29 Absolute Eos (auto) 0.1 10^3/ul (0-0.6) 11/23/18 06:29 Absolute Basos (auto) 0.0 10^3/ul (0-0.2) 11/23/18 06:29 Absolute Nucleated RBC 0.0 10^3/ul 11/23/18 06:29 Nucleated RBC % 0.0 11/23/18 06:29 INR (Anticoag Therapy) 1.21 (0.82-1.09) H 11/22/18 05:22 APTT 31.8 seconds (26.0-38.0) 11/22/18 05:22 Sodium 138 mmol/L (135-145) 11/22/18 09:07 Potassium 4.0 mmol/L (3.5-5.0) 11/22/18 09:07 Chloride 107 mmol/L (101-111) 11/22/18 09:07 Carbon Dioxide 28 mmol/L (22-32) 11/22/18 09:07 Anion Gap 3 mmol/L (2-11) 11/22/18 09:07 BUN 11 mg/dL (6-24) 11/22/18 09:07 Creatinine 0.77 mg/dL (0.51-0.95) 11/22/18 09:07 Est GFR ( Amer) 87.3 (>60) 11/22/18 09:07 Est GFR (Non-Af Amer) 72.1 (>60) 11/22/18 09:07 BUN/Creatinine Ratio 14.3 (8-20) 11/22/18 09:07 Glucose 155 mg/dL (70-100) H 11/22/18 09:07 Lactic Acid 1.9 mmol/L (0.5-2.0) 11/20/18 00:18 Calcium 8.6 mg/dL (8.6-10.3) 11/22/18 09:07 Total Bilirubin 0.40 mg/dL (0.2-1.0) 11/20/18 00:18 AST 21 U/L (13-39) 11/20/18 00:18 ALT 19 U/L (7-52) 11/20/18 00:18 Alkaline Phosphatase 45 U/L (34-104) 11/20/18 00:18 Troponin I 0.00 ng/mL (<0.04) 11/20/18 00:18 Total Protein 6.5 g/dL (6.4-8.9) 11/20/18 00:18 Albumin 4.1 g/dL (3.2-5.2) 11/20/18 00:18 Globulin 2.4 g/dL (2-4) 11/20/18 00:18 Albumin/Globulin Ratio 1.7 (1-3) 11/20/18 00:18 Blood Type A Positive 11/20/18 00:18 Antibody Screen Negative 11/20/18 00:18
[2018-11-23 10:47] LABS: Urine Appearance Turbid; Urine Bacteria 1+ (Absent); Urine Bilirubin Negative (Negative); Urine Blood 1+ (Negative); Urine Color Yellow; Urine Glucose 1+(50 mg/dL) (Negative); Urine Ketones Trace (Negative); Urine Nitrite Negative (Negative); Urine Protein 1+(30 mg/dL) (Negative); Urine Red Blood Cell 3+(>10/hpf) (Absent); Urine Specific Gravity 1.023 (1.010-1.030); Urine Squamous Epithelial Cell Present (Absent); Urine Urobilinogen Negative (Negative); Urine White Blood Cell Trace(0-5/hpf) (Absent)
--- NOTE | 2018-11-24 11:03 | TRS ---
CC: Dr. Jacobs TRANSFER SUMMARY: DATE OF ADMISSION: 11/20/18 DATE OF DISCHARGE: 11/23/18 PRIMARY DIAGNOSIS: Right hip fracture due to fall with hemiarthroplasty. SECONDARY DIAGNOSIS: Presumed osteoporosis due to fragility fracture and mild cognitive impairment (the patient states that she has mild cognitive impairment , but her Mini-Mental Status Exam is 15/30 consistent with Alzheimer's dementia) ; menopausal. MEDICATIONS ON DISCHARGE: 1. Aricept 10 mg p.o. b.i.d. 2. Estradiol - Vivelle-Dot 0.0375 mg topically q.24 hours. 3. Memantine 10 mg p.o. b.i.d. 4. Acetaminophen as needed. 5. Colace 100 mg p.o. b.i.d. 6. Magnesium hydroxide liquid 30 mL p.o. b.i.d. p.r.n. constipation. 7. MiraLAX 17 g p.o. daily. 8. Potassium chloride 20 mEq p.o. b.i.d. 9. Senna 1 tab p.o. q.h.s. 10. Tramadol 50 mg p.o. q.6 hours p.r.n. pain. HOSPITAL COURSE: An elderly woman with dementia, had a fall at home when trying to take off her clothes to go to bed. She was admitted through the emergency department with a displaced right femoral neck fracture that was demonstrated on x- ray. She also had a head CT on admission that showed diffuse atrophy, no intracranial pathology. Initial laboratory test showed a white count of 11.6. Otherwise, initial blood work was only notable for potassium 3.3. Potassium was corrected with oral replacement. Initial troponin was 0.00. The patient was seen in consultation by Dr. Zurita and taken to the operating room by Dr. Garland on 11/21/18. She had a successful right hemiarthroplasty on 11/21/18 with estimated blood loss of 50 cc. Postoperatively, she did not have much difficulty with pain, and she was able to cooperate with Physical Therapy and get from bed to chair. Her white cell count elevated until 13.3 and up to 16 on the day of discharge. She also had developed a small degree of anemia with her hemoglobin falling from 13.0 down to 10.6. Platelets also fell from 212 down to 149. She did have a fever of 37.4 on the day of discharge. She had repeat chest x-ray and urinalysis on the day of discharge. The chest x-ray was negative and the urinalysis showed traces of blood, protein, white cells, but also showed squamous cells. No antibiotics were initiated for the treatment of the white count or mild fever. DISPOSITION: [facility] (physical medicine rehabilitation unit) under the care of Dr. Hayes. He agrees to follow up on the white count and low-grade fevers. STATUS: Inpatient. CONDITION: Stable. ACTIVITY: Weightbearing as tolerated, right lower extremity. DIET: The diet should be regular. [id number]/CPS #: [id number] MTDJose
== END 2018-11-23 11:20 | DRG 470 ==
LOC: ED 23:53 → SSU 11-20 02:00
PROVIDERS: ADMIT Internal Medicine; ATTEND Internal Medicine
PROC: 0SRR0JA Replacement of Right Hip Joint, Femoral Surface with Synthetic Substitute, Uncemented, Open Approach (ICD-10-PCS; principal; 2018-11-21 13:45)
DX: S72.001A Fracture of unspecified part of neck of right femur, initial encounter for closed fracture (principal); M80.051A Age-related osteoporosis with current pathological fracture, right femur, initial encounter for fracture; W01.0XXA Fall on same level from slipping, tripping and stumbling without subsequent striking against object, initial encounter; R50.9 Fever, unspecified; R32 Unspecified urinary incontinence; D64.9 Anemia, unspecified; R35.0 Frequency of micturition; D72.829 Elevated white blood cell count, unspecified; G30.9 Alzheimer's disease, unspecified; F02.80 Dementia in other diseases classified elsewhere, unspecified severity, without behavioral disturbance, psychotic disturbance, mood disturbance, and anxiety; Y92.003 Bedroom of unspecified non-institutional (private) residence as the place of occurrence of the external cause; Z90.711 Acquired absence of uterus with remaining cervical stump; Z80.6 Family history of leukemia; Z82.49 Family history of ischemic heart disease and other diseases of the circulatory system; Z87.891 Personal history of nicotine dependence; Z78.0 Asymptomatic menopausal state; Z98.42 Cataract extraction status, left eye; Z98.41 Cataract extraction status, right eye
CPT/HCPCS: 36415; 62323; 70450; 71045; 80048; 80053; 81003; 81015; 82565; 83605; 84484; 84520; 85025; 85610; 85730; 86850; 86900; 86901; 87086; 88305; 88311; 93005; 99283; A9270-GY; C1776; G8978-GP-CM; G8979-GP-CI; G8987-GO-CN; G8988-GO-CK; J0690; J1644; J2250; J2270; J2405; J2704; J2795; J3010; J3490

== ENCOUNTER 2018-11-23 10:03 | Inpatient (IN) | payer MEDICARE, BC ==
[2018-11-23] MEDS ORDERED: Senna TAB PO PRN (15:53)
[2018-11-23] MEDS ORDERED: Magnesium Hydroxide LIQ* 30 ML UDC PO PRN (15:53)
[2018-11-23] MEDS ORDERED: traMADol TAB* 50 MG PO PRN (16:02)
[2018-11-23] MEDS: Acetaminophen TAB* 325 MG PO PRN ×2 (18:08→22:53)
[2018-11-23] MEDS: MEMANTINE 10 MG PO SCH (19:57)
[2018-11-23] MEDS: Docusate CAP* 100 MG PO SCH (19:57)
[2018-11-23] MEDS: DONEPEZIL HCL 10 MG PO SCH (19:57)
[2018-11-23] MEDS: PTO:Polyethyl Glycol/Propylene Gly OPHTH.SOLN BOTH EYES SCH (20:07)
[2018-11-23] MEDS ORDERED: Bisacodyl SUPP* 10 MG SUPP PR PRN (20:45)
[2018-11-23] MEDS ORDERED: Potassium Chlor TAB* 20 MEQ TAB.ER PO SCH (21:00)
[2018-11-23] MEDS: Heparin VIAL(*) 5000 UNITS/ML VIAL (FIVE THOUSAND) SUBCUT SCH (21:14)
--- NOTE | 2018-11-24 00:14 | HP ---
HISTORY AND PHYSICAL: DATE OF ADMISSION: 11/23/18 REASON FOR ADMISSION: Right hip fracture. HISTORY OF PRESENT ILLNESS: Kristen Gomez is an 78-year-old female. She has a medical history significant for early dementia. She normally takes Namenda and Aricept for that. She was getting ready for bed late on 11/19/18. She had pulled down her pants and her panties. Her foot slipped on her hardwood floor and she fell to the ground. Her tried to assist her , but she was in too much pain to move. 911 was called. She was brought by ambulance to [facility]. She had x-rays taken in the hospital that showed a fracture of the right femoral neck. She had a consultation with Orthopedics. She saw Dr. Zurita. Dr. Zurita recommended a hemiarthroplasty of the right hip. The patient's at first needed to think about it. She was taken to the operating room on 11/21/18 and underwent a right hip hemiarthroplasty by Dr. Garland. Postoperatively, she was started on heparin for DVT prophylaxis. The patient otherwise was fairly stable. She did have an elevated white blood cell count on admission. The white blood cell count was more elevated today. Her white count was 16,000. As mentioned, it was high throughout her hospital stay and was elevated on admission. The patient had a chest x-ray, which did not reveal any infiltrates or exudates. She had a urinalysis, which was negative. The patient was felt to have physical therapy and occupational therapy needs. She is now being admitted for inpatient rehab, so that she may return to independent living. PAST MEDICAL HISTORY: Significant for the aforementioned cognitive impairment. MEDICATIONS: Include Namenda 10 mg twice a day and Aricept 10 mg twice a day. She is also on potassium supplement. She is on tramadol for pain control. ALLERGIES: The patient has no known drug allergies. SOCIAL HISTORY: She is a nonsmoker. She has a glass of wine 3 times a week with dinner. She lives with her in a 2-may[address] house. They have no children. Her is the surrogate decision maker. REVIEW OF SYSTEMS: The patient reports no current shortness of breath or chest pain. She is mildly constipated. PHYSICAL EXAMINATION VITAL SIGNS: The patient's temperature is 98.2, blood pressure is 110/49, pulse is 78, respirations are 16. HEENT: Her extraocular movements are intact. NECK: Supple. LUNGS: Sounded clear to auscultation bilaterally. HEART: Heart sounds are regular. S1 and S2 audible. ABDOMEN: Soft and nontender. EXTREMITIES: Her right hip has a wound, which is clean and dry. Peripheral pulses are intact. NEUROLOGIC: She was alert, able to answer questions. Muscle strength is about 3/5 in the right leg secondary to pain. Her left leg and upper extremities were at least 4+/5. FUNCTIONAL EXAM: She transfers with max assist. ASSESSMENT: 1. Right hip fracture, status post hemiarthroplasty of the same. 2. Dementia. PLAN: Our plan is to integrate her into comprehensive and therapeutic rehab program with the following goals: 1. Physical Therapy will work with the patient. They are going to work on functional transfer training, ambulation training with a walker. Wheelchair mobilities. 2. Occupational Therapy will see the patient and work on her activities of daily living including toileting and toilet transfers. 3. Heparin for DVT prophylaxis. 4. Continue Aricept and Namenda for her memory dysfunction. 5. Adequate analgesia. 6. Her bowels will be regulated. 7. director of women's services will be closely involved to make sure that any services and equipment the patient requires are in place prior to discharge. 8. Family training as appropriate. 9. Home with appropriate services. ESTIMATED LENGTH OF STAY: 17 days. [id number]/[facility] #: [id number] MTDD
[2018-11-24] MEDS: Heparin VIAL(*) 5000 UNITS/ML VIAL (FIVE THOUSAND) SUBCUT SCH ×3 (06:18→23:43)
[2018-11-24] MEDS: Acetaminophen TAB* 325 MG PO PRN ×2 (07:01→19:54)
[2018-11-24] MEDS: MEMANTINE 10 MG PO SCH ×2 (09:06→19:55)
[2018-11-24] MEDS: DONEPEZIL HCL 10 MG PO SCH ×2 (09:06→19:53)
[2018-11-24] MEDS: Polyethylene Glycol 3350* 17 GM PACKET PO SCH (09:06)
[2018-11-24] MEDS: Docusate CAP* 100 MG PO SCH ×2 (09:06→19:54)
[2018-11-24] MEDS: PTO:Polyethyl Glycol/Propylene Gly OPHTH.SOLN BOTH EYES SCH ×2 (09:08→19:55)
--- NOTE | 2018-11-24 16:12 | PN ---
Progress Note Date of Service: 11/24/18 Note: JARRETT MUSTAFA was visited. Therapy notes read and reviewed. She did not do well on BIMS, and will ask for cog screen with MONITOR TECHNICIAN. Her would like her to try Myrbetriq for bladder spasms, which she was written for but never got due to cost Current Medications: Active Medications Generic Name Dose Route Start Last Admin Trade Name Freq PRN Reason Stop Dose Admin Acetaminophen 650 mg 11/23/18 15:53 11/24/18 07:01 Tylenol Tab* PO 650 mg Q4H PRN Administration FEVER/PAIN Bisacodyl 10 mg 11/23/18 20:45 11/23/18 21:11 Dulcolax Supp* CO 10 mg DAILY PRN Administration CONSTIPATION Docusate Sodium 100 mg 11/23/18 21:00 11/24/18 09:06 Colace Cap* PO 100 mg BID ABILIO Administration Heparin Sodium (Porcine) 5,000 units 11/23/18 22:00 11/24/18 06:18 Heparin Vial(*) SUBCUT 5,000 units Q8HR ABILIO Administration Magnesium Hydroxide 30 ml 11/23/18 15:53 Milk Of Magnesia Liq* PO Q6H PRN CONSTIPATION Memantine 10 mg 11/23/18 21:00 11/24/18 09:06 Namenda Tab* PO 10 mg BID ABILIO Administration Polyethyl Glycol/Propylene Glycol 1 drop 11/23/18 21:00 11/24/18 09:08 Lubricant Eye Drops BOTH EYES 1 drop BID ABILIO Administration Polyethylene Glycol/Electrolytes 17 gm 11/24/18 09:00 11/24/18 09:06 Miralax* PO 17 gm DAILY ABILIO Administration Senna 2 tab 11/23/18 15:53 Senokot Tab* PO BEDTIME PRN CONSTIPATION Tramadol HCl 50 mg 11/23/18 16:02 Ultram* PO Q6H PRN PAIN - MODERATE Vital Signs: Vital Signs Temp Pulse Resp BP Pulse Ox 98.5 F 77 16 112/43 95 11/24/18 06:00 11/24/18 06:00 11/24/18 07:01 11/24/18 06:00 11/24/18 06:00 Exam: HEENT: EOMI LUNGS: Clear bilaterally HEART: reg rhythm ABDOMEN: Soft, +BS EXTREMITIES: Right hip wound C/D/I NEUROLOGIC: Alert, oriented to self. Right leg 3/5 due to pain, left leg 4+/5 Assessment/Plan: 1. Right Hip Fracture: WBAT. PT/OT. Follow up with Dr. Garland 2. Cognitive Decline/Dementia: Aricept/Namenda 3. DVT Prophylaxis: Heparin S/Q 4. Advance Directives: Full Code. is Surrogate Decision maker 5. Bladder Spasms/OAB: Myrbetriq 11/24/18 16:16 11/24/18 16:18
[2018-11-25] MEDS: Heparin VIAL(*) 5000 UNITS/ML VIAL (FIVE THOUSAND) SUBCUT SCH ×3 (06:17→22:01)
[2018-11-25] MEDS: MEMANTINE 10 MG PO SCH ×2 (07:38→21:23)
[2018-11-25] MEDS: Docusate CAP* 100 MG PO SCH ×2 (07:39→21:11)
[2018-11-25] MEDS: Acetaminophen TAB* 325 MG PO PRN ×2 (07:39→21:23)
[2018-11-25] MEDS: PTO:Polyethyl Glycol/Propylene Gly OPHTH.SOLN BOTH EYES SCH ×2 (07:40→21:26)
[2018-11-25] MEDS: Polyethylene Glycol 3350* 17 GM PACKET PO SCH (07:40)
[2018-11-25] MEDS: DONEPEZIL HCL 10 MG PO SCH ×2 (07:40→21:22)
[2018-11-25 09:04] LABS: Albumin 3.1 g/dL (3.2-5.2); Albumin/Globulin Ratio 0.9 (1-3); BUN/Creatinine Ratio 24.6 (8-20); Calcium 8.8 mg/dL (8.6-10.3); EGFR African American 99.1 (>60); EGFR Non-African American 81.9 (>60); Globulin 3.4 g/dL (2-4); Potassium 3.9 mmol/L (3.5-5.0); Total Bilirubin 0.5 mg/dL (0.2-1.0); Total Protein 6.5 g/dL (6.4-8.9)
[2018-11-25 09:05] LABS: ABS Basophils 0.1 10^3/ul (0-0.2); ABS Eosinophils 0.1 10^3/ul (0-0.6); ABS Lymphocytes 1.5 10^3/ul (1.0-4.8); ABS Monocytes 1.1 10^3/ul (0-0.8); ABS Neutrophils 10.3 10^3/ul (1.5-7.7); Eosinophil % 1.1 %; Hematocrit 32 % (35-47); Hemoglobin 10.6 g/dL (12.0-16.0); Lymphocyte % 11.6 %; Mean Corpuscular HGB Conc 33 g/dL (31-36); Mean Corpuscular Hemoglobin 32 pg (27-31); Mean Corpuscular Volume 96 fL (80-97); Nucleated Red Blood Cells % 0.1; Platelet Count 234 10^3/uL (150-450); Red Blood Count 3.33 10^6 /uL (3.70-4.87); Red Cell Distribution Width 14 % (10-15); White Blood Count 13.1 10^3/uL (3.5-10.8)
--- NOTE | 2018-11-25 12:53 | PMRUTEAM ---
PMRU: Team Meeting Current Status: Nursing: Current Status Skin Deviations [Bilateral Eye Other ] Skin Deviations [Bilateral Wound Buttocks] Skin Deviations [Right Hip] Incision Skin Deviation Description [ pink - better than last night Bilateral Eye] Skin Deviation Description [ redness Bilateral Buttocks] Skin Deviation Description [ drsg changed for scant old bloody drainage. Right Hip] incision washed with soap and water. telfa x1, 4x4 's x2 applied Physical Therapy: Current Status Bed Mobility Assistance Total Assist,2 or More Person Assist Transfer Mobility Assistance 2 or More Person Assist Transfer/Bed Mobility EZ Stand Recommended Devices Ambulation Assistance Unable Ambulation Assistive Devices Rolling Walker Stairs Assistance Supervision Stairs Recommended Devices Two Rails Number of Stairs 3 Occupational Therapy: Current Status Upper Body Dressing Total Assist Lower Body Dressing Total Assist,2 Person Assist Bathing Max Asst,2 Person Assist Toileting Total Assist,2 Person Assist Toilet Transfer Total Assist,2 Person Assist Eating Min Assist,Mod Assist Rec Therapy: Current Status Summary of Assessment and Pt. was open to conversation - pleasant but Clinical Impression confused. Pt. answered some questions but at others would appear confused or state "I don't know". Pt. presented as tired as well. This newspaper writer met with pt.'s to gather additional information. The information above is a combination of pt.'s and 's stated information. Pt. was interested in pet therapy visits. Treatment Goals Pt. will engage in leisure activities as tolerated . Treatment Plan Provide recreation therapy services and encourage involvement. Social Work: Current Status Discharge Plan return home with home care svs and family support Potential for Family Training pt's is attentive and involved Anticipated Discharge Home Destination Discharge With home care services and family support Goals: Physical Therapy: Initial Goals Bed Mobility Assistance Independent Transfer Mobility Assistance Independent Transfer/Bed Mobility Rolling Walker Recommended Devices Ambulation Independent Ambulation Recommended Devices Rolling Walker Ambulation Distance 150 Stairs Assistance Independent Stair Recommended Devices Two Rails Number of Stairs 5 Physical Therapy: Updated Goals Transfer/Bed Mobility EZ Stand Recommended Devices Occupational Therapy: Initial Goals Goals to be Completed in (Days 3-4 weeks ) Upper Body Bathing Routine Minimal Contact Assist Lower Body Bathing Routine Moderate Assist Upper Body Dressing Routine Minimal Contact Assist,Moderate Assist Lower Body Dressing Routine Moderate Assist Toilet Hygeine and Clothing Minimal Contact Assist Management Routine Toilet Transfer Routine Minimal Contact Assist Step-In Shower Transfer Minimal Contact Assist Routine Functional Transfers for ADL Minimal Contact Assist Grooming Routine Supervision/Set Up Feeding Routine Supervision/Set Up Speech: Goals Speech Goal 1 Language Comprehension Goal 1 Comments Language Comprehension Goals: Long-Term Goal: Pt will demonstrate comprehension of simple, one-part, concerte directions, 80% accuracy, given skilled instruction, Moderate cueing, and extra time. Status: Goal established Short-Term Goal: Pt will demonstrate comprehension of simple, one-part, concerte directions, 80% accuracy, given skilled instruction, Maximal cueing, and extra time. Speech Goal 2 Problem Solving Speech Goal 2 Comments Problem Solving Goals: Long-Term Goal: Pt will solve simple routine problems, for transfer and mobility safety, adaptive dressing, time and money management; with 80% accuracy, given Moderate cueing. Status: Goal established Short-Term Goal: Pt will solve simple routine problems, for transfer and mobility safety, adaptive dressing, time and money management; with 80% accuracy, given skilled instruction, Maximum cueing, and extra time. Status: Goal established. Social Work: Goals Discharge Plan return home with home care svs and family support Potential for Family Training pt's is attentive and involved Anticipated Discharge Home Destination Discharge With home care services and family support Care Plan: Care Plan ADL's - Improve/Maintain Start: 11/23/18 16:15 Freq: DAILY Status: Active Target: Protocol: Activity Type Activity Date Activity User E-Sign Co-Sign Detail Recorded Client Recorded Date Recorded By Document 11/24/18 14:50 [id number] 11/24/18 14:50 [id number] 11/24/18 14:50 PMRU Outcome: ADL's/ADL Transfers Orders/Interventions Occupational Therapy Evaluation & Treatment Communication Tool in Patient Room Device Yes Address Deficits Secondary To: fall s/p Right hip ad Patient to receive OT 5x/wk for 60-120 Therex min/day Self Care Management Group Therapy UE/LE ADL's with Assist Yes: modA ADL Transfers with Assist Yes: Britt Toileting: Transfers,Clothing Management Yes: Britt ,Hygeine w/Assist Light Kitchen/Laundry w/Assist No Outcome/Goals Met Pt with eyes closed initially, but with transfer to EOB and commode pt more awake and conversive during session. Pt grimacing and groaning with transfers and position changes, RN aware of likely pain. With standing upright in EZ stand, pt with fear of falling , calmed down well with cueing that she was safe and staff was there to assist. Communication-Improve/Maintain Start: 11/23/18 12:46 Freq: DAILY Status: Active Target: Protocol: Activity Type Activity Date Activity User E-Sign Co-Sign Detail Recorded Client Recorded Date Recorded By Document 11/25/18 01:01 [id number] 11/25/18 01:06 [id number] 11/25/18 01:01 PMRU Outcome: Communication/Cognitive Status Outcome/Goals Met Comment patient has h/o dementia DVT Prophylaxis- Improve/Maintain Start: 11/23/18 12:46 Freq: QSHIFT Status: Active Target: Protocol: Activity Type Activity Date Activity User E-Sign Co-Sign Detail Recorded Client Recorded Date Recorded By Document 11/25/18 01:01 [id number] 11/25/18 01:06 [id number] 11/25/18 01:01 PMRU Outcome: DVT Prophylaxis Outcome/Goals Remains Free of DVT Complies with DVT Prophylaxis /Treatment Demonstrates Knowledge of DVT Prevention/ Treatment TEDS Stockings on Every AM, Off at HS Progression Toward Outcome/Goals Progressing Discharge Planning - Improve/Maintain Start: 11/23/18 12:46 Freq: DAILY Status: Active Target: Protocol: Activity Type Activity Date Activity User E-Sign Co-Sign Detail Recorded Client Recorded Date Recorded By Document 11/25/18 01:01 [id number] 11/25/18 01:06 [id number] 11/25/18 01:01 PMRU Outcome: Discharge Planning Update Patient Family No Outcome/Goals Demonstrates Understanding of Discharge Plan Education-Improve/Maintain Start: 11/23/18 12:46 Freq: QSHIFT Status: Active Target: Protocol: Activity Type Activity Date Activity User E-Sign Co-Sign Detail Recorded Client Recorded Date Recorded By Document 11/25/18 01:01 [id number] 11/25/18 01:06 [id number] 11/25/18 01:01 PMRU Outcome: Education Outcome/Goals Demonstrates Skills Encourage Questions Progression Toward Outcome/Goals Progressing /GI-Improve/Maintain Start: 11/23/18 12:46 Freq: QSHIFT Status: Active Target: Protocol: Activity Type Activity Date Activity User E-Sign Co-Sign Detail Recorded Client Recorded Date Recorded By Document 11/25/18 01:01 [id number] 11/25/18 01:06 [id number] 11/25/18 01:01 PMRU Outcome: Genitourinary/ Gastrointestinal Genitourinary- Outcome/Goals Maintain/ Achieve Urinary Continence Remain Free of Hospital- Acquired UTI Gastrointestinal-Outcome/Goals Maintain/ Achieve Bowel Regularity in Accordance with Pt's Baseline Prevent Constipation Bowel Regularity at Home Laxatives as Ordered Progression Toward Outcome/Goals - Progressing Progression Toward Outcome/Goals - GI Progressing Medication Administration Start: 11/23/18 12:46 Freq: QSHIFT Status: Active Target: Protocol: Activity Type Activity Date Activity User E-Sign Co-Sign Detail Recorded Client Recorded Date Recorded By Document 11/25/18 01:01 [id number] 11/25/18 01:06 [id number] 11/25/18 01:01 PMRU Outcome: Medication Administration Assess Patient Knowledge/Teach Med Yes Education for all Meds Outcome/Goals Family/ Caregiver Administer Medications at Home Demonstrates Understanding Progression Towards Outcome/Goals Progressing Is Patient Going Home on Lovenox? No Pain/Comfort- Improve/Maintain Start: 11/23/18 12:46 Freq: QSHIFT Status: Active Target: Protocol: Activity Type Activity Date Activity User E-Sign Co-Sign Detail Recorded Client Recorded Date Recorded By Document 11/25/18 01:01 [id number] 11/25/18 01:06 [id number] 11/25/18 01:01 PMRU Outcome: Pain/Comfort Outcome/Goals Achieves Acceptable Comfort/Pain Level as Determined by Patient/Condit Maintain Comfort Level Allowing Patient to Fully Participate in Rehab Progression Toward Outcome/Goals Progressing Outcome/Goals Met Comment pt denied pain Safety- Improve/Maintain Start: 11/23/18 12:46 Freq: QSHIFT Status: Active Target: Protocol: Activity Type Activity Date Activity User E-Sign Co-Sign Detail Recorded Client Recorded Date Recorded By Document 11/25/18 01:01 [id number] 11/25/18 01:06 [id number] 11/25/18 01:01 PMRU Outcome: Safety Outcome/Goals Remain Free of Injury or Harm Cooperates with Safety Measures for Least Restrictive Environment Prevent Falls/ Injury Progression Toward Outcome/Goals Progressing Outcome/Goals Met Comment BA armed, bed against wall Skin- Improve/Maintain Start: 11/23/18 12:46 Freq: QSHIFT Status: Active Target: Protocol: Activity Type Activity Date Activity User E-Sign Co-Sign Detail Recorded Client Recorded Date Recorded By Document 11/25/18 01:01 [id number] [email or web address] 11/25/18 01:06 [id number] 11/25/18 01:01 PMRU Outcome: Skin Skin Risk Level Medium Skin Orders Dressing Change Turn/Position q2hr While in Bed Outcome/Goals Free from Decubitus Surgical Incisions Healing Progression Toward Outcome/Goals Progressing Medicine Note: Length of Stay: 3 1/2 weeks Anticipated Discharge Destination: Home Tentative Discharge Date: December 20, 2018 Discharged to: Home
--- NOTE | 2018-11-25 15:43 | PN ---
Progress Note Date of Service: 11/25/18 Note: JARRETT MUSTAFA was visited. Therapy notes read and reviewed. She was discussed in interdisciplinary plan of care rounds. She has some difficulty with right neglect of her arm. Her strength tests symmetric in handgrip, biceps, triceps. Just some inattention. Had CT scan of brain on admission and can't have MRI with arian. Will monitor. WBC 13K Current Medications: Active Medications Generic Name Dose Route Start Last Admin Trade Name Freq PRN Reason Stop Dose Admin Acetaminophen 650 mg 11/23/18 15:53 11/25/18 07:39 Tylenol Tab* PO 650 mg Q4H PRN Administration FEVER/PAIN Bisacodyl 10 mg 11/23/18 20:45 11/23/18 21:11 Dulcolax Supp* DE 10 mg DAILY PRN Administration CONSTIPATION Docusate Sodium 100 mg 11/23/18 21:00 11/25/18 07:39 Colace Cap* PO 100 mg BID ABILIO Administration Heparin Sodium (Porcine) 5,000 units 11/23/18 22:00 11/25/18 14:55 Heparin Vial(*) SUBCUT 5,000 units Q8HR ABILIO Administration Magnesium Hydroxide 30 ml 11/23/18 15:53 Milk Of Magnesia Liq* PO Q6H PRN CONSTIPATION Memantine 10 mg 11/23/18 21:00 11/25/18 07:38 Namenda Tab* PO 10 mg BID ABILIO Administration Mirabegron 25 mg 11/26/18 09:00 Myrbetriq (Nf) PO DAILY ABILIO Polyethyl Glycol/Propylene Glycol 1 drop 11/23/18 21:00 11/25/18 07:40 Lubricant Eye Drops BOTH EYES 1 drop BID ABILIO Administration Polyethylene Glycol/Electrolytes 17 gm 11/24/18 09:00 11/25/18 07:40 Miralax* PO 17 gm DAILY ABILIO Administration Senna 2 tab 11/23/18 15:53 Senokot Tab* PO BEDTIME PRN CONSTIPATION Tramadol HCl 50 mg 11/23/18 16:02 Ultram* PO Q6H PRN PAIN - MODERATE Vital Signs: Vital Signs Temp Pulse Resp BP Pulse Ox 98.6 F 88 16 140/55 95 11/25/18 06:45 11/25/18 06:45 11/25/18 08:00 11/25/18 06:45 11/25/18 08:00 Lab Results: Laboratory Results - last 24 hr 11/25/18 11/25/18 08:38 08:38 WBC 13.1 H RBC 3.33 L Hgb 10.6 L Hct 32 L MCV 96 MCH 32 H MCHC 33 RDW 14 Plt Count 234 MPV 8.0 Neut % (Auto) 78.5 Lymph % (Auto) 11.6 [place] % (Auto) 8.3 Eos % (Auto) 1.1 Baso % (Auto) 0.5 Absolute Neuts (auto) 10.3 H Absolute Lymphs (auto) 1.5 Absolute Monos (auto) 1.1 H Absolute Eos (auto) 0.1 Absolute Basos (auto) 0.1 Absolute Nucleated RBC 0.0 Nucleated RBC % 0.1 Sodium 135 Potassium 3.9 Chloride 102 Carbon Dioxide 27 Anion Gap 6 BUN 17 Creatinine 0.69 Est GFR ( Amer) 99.1 Est GFR (Non-Af Amer) 81.9 BUN/Creatinine Ratio 24.6 H Glucose 203 H Calcium 8.8 Total Bilirubin 0.50 AST 39 ALT 40 Alkaline Phosphatase 72 Total Protein 6.5 Albumin 3.1 L Globulin 3.4 Albumin/Globulin Ratio 0.9 L Exam: HEENT: EOMI LUNGS: Clear bilaterally HEART: reg rhythm ABDOMEN: Soft, +BS EXTREMITIES: Right hip wound C/D/I NEUROLOGIC: Alert, oriented to self. Right leg 3/5 due to pain, left leg 4+/5 Assessment/Plan: 1. Right Hip Fracture: WBAT. PT/OT. Follow up with Dr. Garland 2. Cognitive Decline/Dementia: Aricept/Namenda 3. DVT Prophylaxis: Heparin S/Q 4. Advance Directives: Full Code. is Surrogate Decision maker 5. Bladder Spasms/OAB: Myrbetriq 6. Right neglect: will watch. May need neuro consult 11/25/18 15:44
[2018-11-26] MEDS: Heparin VIAL(*) 5000 UNITS/ML VIAL (FIVE THOUSAND) SUBCUT SCH ×3 (06:18→22:01)
[2018-11-26] MEDS: DONEPEZIL HCL 10 MG PO SCH ×2 (08:40→21:54)
[2018-11-26] MEDS: MEMANTINE 10 MG PO SCH ×2 (08:40→21:54)
[2018-11-26] MEDS: Docusate CAP* 100 MG PO SCH ×2 (08:40→22:02)
[2018-11-26] MEDS: PTO:Polyethyl Glycol/Propylene Gly OPHTH.SOLN BOTH EYES SCH ×2 (08:41→21:54)
[2018-11-26] MEDS: Polyethylene Glycol 3350* 17 GM PACKET PO SCH (08:41)
[2018-11-26] MEDS: Acetaminophen TAB* 325 MG PO PRN ×2 (08:42→21:53)
[2018-11-26] MEDS: MIRABEGRON 25 MG PO SCH (08:51)
--- NOTE | 2018-11-26 21:42 | PN ---
Progress Note Date of Service: 11/26/18 Note: JARRETT MUSTAFA was visited. Therapy notes read and reviewed. A little more confused this evening. Otherwise about the same Current Medications: Active Medications Generic Name Dose Route Start Last Admin Trade Name Freq PRN Reason Stop Dose Admin Acetaminophen 650 mg 11/23/18 15:53 11/26/18 08:42 Tylenol Tab* PO 650 mg Q4H PRN Administration FEVER/PAIN Bisacodyl 10 mg 11/23/18 20:45 11/23/18 21:11 Dulcolax Supp* DE 10 mg DAILY PRN Administration CONSTIPATION Docusate Sodium 100 mg 11/23/18 21:00 11/26/18 08:40 Colace Cap* PO 100 mg BID ABILIO Administration Heparin Sodium (Porcine) 5,000 units 11/23/18 22:00 11/26/18 13:45 Heparin Vial(*) SUBCUT 5,000 units Q8HR ABILIO Administration Magnesium Hydroxide 30 ml 11/23/18 15:53 Milk Of Magnesia Liq* PO Q6H PRN CONSTIPATION Memantine 10 mg 11/23/18 21:00 11/26/18 08:40 Namenda Tab* PO 10 mg BID ABILIO Administration Mirabegron 25 mg 11/26/18 09:00 11/26/18 08:51 Myrbetriq (Nf) PO Not Given DAILY ABILIO Polyethyl Glycol/Propylene Glycol 1 drop 11/23/18 21:00 11/26/18 08:41 Lubricant Eye Drops BOTH EYES 1 drop BID ABILIO Administration Polyethylene Glycol/Electrolytes 17 gm 11/24/18 09:00 11/26/18 08:41 Miralax* PO 17 gm DAILY ABILIO Administration Senna 2 tab 11/23/18 15:53 11/25/18 21:25 Senokot Tab* PO 2 tab BEDTIME PRN Administration CONSTIPATION Tramadol HCl 50 mg 11/23/18 16:02 Ultram* PO Q6H PRN PAIN - MODERATE Vital Signs: Vital Signs Temp Pulse Resp BP Pulse Ox 98.4 F 90 18 140/56 99 11/26/18 07:00 11/26/18 07:00 11/26/18 07:00 11/26/18 07:00 11/26/18 07:00 Exam: HEENT: EOMI LUNGS: Clear bilaterally HEART: reg rhythm ABDOMEN: Soft, +BS EXTREMITIES: Right hip wound C/D/I NEUROLOGIC: Alert, oriented to self. Right leg 3/5 due to pain, left leg 4+/5 Assessment/Plan: 1. Right Hip Fracture: WBAT. PT/OT. Follow up with Dr. Garland 2. Cognitive Decline/Dementia: Aricept/Namenda 3. DVT Prophylaxis: Heparin S/Q 4. Advance Directives: Full Code. is Surrogate Decision maker 5. Bladder Spasms/OAB: Myrbetriq 6. Right neglect: comes and goes. will watch. May need neuro consult 11/26/18 21:43
[2018-11-27] MEDS: Acetaminophen TAB* 325 MG PO PRN ×2 (03:50→10:41)
[2018-11-27] MEDS: Heparin VIAL(*) 5000 UNITS/ML VIAL (FIVE THOUSAND) SUBCUT SCH ×3 (05:27→22:58)
[2018-11-27] MEDS: DONEPEZIL HCL 10 MG PO SCH ×2 (10:37→19:53)
[2018-11-27] MEDS: Docusate CAP* 100 MG PO SCH ×2 (10:37→19:53)
[2018-11-27] MEDS: PTO:Polyethyl Glycol/Propylene Gly OPHTH.SOLN BOTH EYES SCH ×2 (10:38→19:53)
[2018-11-27] MEDS: MIRABEGRON 25 MG PO SCH (10:38)
[2018-11-27] MEDS: MEMANTINE 10 MG PO SCH ×2 (10:38→19:53)
[2018-11-27] MEDS: Polyethylene Glycol 3350* 17 GM PACKET PO SCH (10:39)
--- NOTE | 2018-11-27 12:37 | PN ---
Progress Note Date of Service: 11/27/18 Note: JARRETT MUSTAFA was visited. Nursing notes read and reviewed. Started Mirabegron for her OAB. Clearer this morning Current Medications: Active Medications Generic Name Dose Route Start Last Admin Trade Name Freq PRN Reason Stop Dose Admin Acetaminophen 650 mg 11/23/18 15:53 11/27/18 10:41 Tylenol Tab* PO 650 mg Q4H PRN Administration FEVER/PAIN Bisacodyl 10 mg 11/23/18 20:45 11/23/18 21:11 Dulcolax Supp* DE 10 mg DAILY PRN Administration CONSTIPATION Docusate Sodium 100 mg 11/23/18 21:00 11/27/18 10:37 Colace Cap* PO 100 mg BID ABILIO Administration Heparin Sodium (Porcine) 5,000 units 11/23/18 22:00 11/27/18 05:27 Heparin Vial(*) SUBCUT 5,000 units Q8HR ABILIO Administration Magnesium Hydroxide 30 ml 11/23/18 15:53 Milk Of Magnesia Liq* PO Q6H PRN CONSTIPATION Memantine 10 mg 11/23/18 21:00 11/27/18 10:38 Namenda Tab* PO 10 mg BID ABILIO Administration Mirabegron 25 mg 11/26/18 09:00 11/27/18 10:38 Myrbetriq (Nf) PO 25 mg DAILY ABILIO Administration Polyethyl Glycol/Propylene Glycol 1 drop 11/23/18 21:00 11/27/18 10:38 Lubricant Eye Drops BOTH EYES 1 drop BID ABILIO Administration Polyethylene Glycol/Electrolytes 17 gm 11/24/18 09:00 11/27/18 10:39 Miralax* PO 17 gm DAILY ABILIO Administration Senna 2 tab 11/23/18 15:53 11/25/18 21:25 Senokot Tab* PO 2 tab BEDTIME PRN Administration CONSTIPATION Tramadol HCl 50 mg 11/23/18 16:02 Ultram* PO Q6H PRN PAIN - MODERATE Vital Signs: Vital Signs Temp Pulse Resp BP Pulse Ox 98.4 F 79 18 121/44 97 11/27/18 05:33 11/27/18 05:33 11/27/18 05:50 11/27/18 05:33 11/27/18 05:33 Exam: HEENT: EOMI LUNGS: Clear bilaterally HEART: reg rhythm ABDOMEN: Soft, +BS EXTREMITIES: Right hip wound C/D/I NEUROLOGIC: Alert, oriented to self. Right leg 3/5 due to pain, left leg 4+/5 Assessment/Plan: 1. Right Hip Fracture: WBAT. PT/OT. Follow up with Dr. Garland 2. Cognitive Decline/Dementia: Aricept/Namenda 3. DVT Prophylaxis: Heparin S/Q 4. Advance Directives: Full Code. is Surrogate Decision maker 5. Bladder Spasms/OAB: Myrbetriq 6. Right neglect: comes and goes. will watch. May need neuro consult 11/27/18 12:37
[2018-11-28] MEDS: Acetaminophen TAB* 325 MG PO PRN ×3 (02:25→18:20)
[2018-11-28] MEDS: Heparin VIAL(*) 5000 UNITS/ML VIAL (FIVE THOUSAND) SUBCUT SCH ×3 (05:33→21:11)
[2018-11-28] MEDS: Docusate CAP* 100 MG PO SCH ×2 (09:39→21:10)
[2018-11-28] MEDS: DONEPEZIL HCL 10 MG PO SCH ×2 (09:40→21:09)
[2018-11-28] MEDS: MEMANTINE 10 MG PO SCH ×2 (09:40→21:09)
[2018-11-28] MEDS: MIRABEGRON 25 MG PO SCH (09:40)
[2018-11-28] MEDS: PTO:Polyethyl Glycol/Propylene Gly OPHTH.SOLN BOTH EYES SCH ×2 (09:43→21:08)
[2018-11-28] MEDS: Polyethylene Glycol 3350* 17 GM PACKET PO SCH (09:44)
--- NOTE | 2018-11-28 17:23 | PN ---
Progress Note Date of Service: 11/28/18 Note: JARRETT MUSTAFA was visited. Therapy notes read and reviewed. She has no complaints today, seems alert and oriented. Current Medications: Active Medications Generic Name Dose Route Start Last Admin Trade Name Freq PRN Reason Stop Dose Admin Acetaminophen 650 mg 11/23/18 15:53 11/28/18 09:39 Tylenol Tab* PO 650 mg Q4H PRN Administration FEVER/PAIN Bisacodyl 10 mg 11/23/18 20:45 11/23/18 21:11 Dulcolax Supp* [place] 10 mg DAILY PRN Administration CONSTIPATION Docusate Sodium 100 mg 11/23/18 21:00 11/28/18 09:39 Colace Cap* PO 100 mg BID ABILIO Administration Heparin Sodium (Porcine) 5,000 units 11/23/18 22:00 11/28/18 14:21 Heparin Vial(*) SUBCUT 5,000 units Q8HR ABILIO Administration Magnesium Hydroxide 30 ml 11/23/18 15:53 Milk Of Magnesia Liq* PO Q6H PRN CONSTIPATION Memantine 10 mg 11/23/18 21:00 11/28/18 09:40 Namenda Tab* PO 10 mg BID ABILIO Administration Mirabegron 25 mg 11/26/18 09:00 11/28/18 09:40 Myrbetriq (Nf) PO 25 mg DAILY ABILIO Administration Polyethyl Glycol/Propylene Glycol 1 drop 11/23/18 21:00 11/28/18 09:43 Lubricant Eye Drops BOTH EYES 1 drop BID ABILIO Administration Polyethylene Glycol/Electrolytes 17 gm 11/24/18 09:00 11/28/18 09:44 Miralax* PO 17 gm DAILY ABILIO Administration Senna 2 tab 11/23/18 15:53 11/25/18 21:25 Senokot Tab* PO 2 tab BEDTIME PRN Administration CONSTIPATION Tramadol HCl 50 mg 11/23/18 16:02 Ultram* PO Q6H PRN PAIN - MODERATE Vital Signs: Vital Signs Temp Pulse Resp BP Pulse Ox 98.3 F 84 18 128/58 98 11/28/18 16:00 11/28/18 16:00 11/28/18 16:00 11/28/18 16:00 11/28/18 08:00 Exam: HEENT: EOMI LUNGS: Clear bilaterally HEART: reg rhythm ABDOMEN: Soft, +BS EXTREMITIES: Right hip wound C/D/I NEUROLOGIC: Alert, oriented to self. Right leg 3+/5 due to pain, left leg 4+/5 Assessment/Plan: 1. Right Hip Fracture: WBAT. PT/OT. Follow up with Dr. Garland 2. Cognitive Decline/Dementia: Aricept/Namenda 3. DVT Prophylaxis: Heparin S/Q 4. Advance Directives: Full Code. is Surrogate Decision maker 5. Bladder Spasms/OAB: Myrbetriq 6. Right neglect: comes and goes. will watch. May need neuro consult 11/28/18 17:23
[2018-11-29] MEDS: Heparin VIAL(*) 5000 UNITS/ML VIAL (FIVE THOUSAND) SUBCUT SCH ×3 (05:02→21:04)
[2018-11-29] MEDS: Docusate CAP* 100 MG PO SCH ×2 (08:47→20:58)
[2018-11-29] MEDS: DONEPEZIL HCL 10 MG PO SCH ×2 (08:47→21:00)
[2018-11-29] MEDS: MIRABEGRON 25 MG PO SCH (08:47)
[2018-11-29] MEDS: Polyethylene Glycol 3350* 17 GM PACKET PO SCH (08:47)
[2018-11-29] MEDS: MEMANTINE 10 MG PO SCH ×2 (08:48→21:00)
[2018-11-29] MEDS: PTO:Polyethyl Glycol/Propylene Gly OPHTH.SOLN BOTH EYES SCH ×2 (08:48→21:03)
[2018-11-29] MEDS: Acetaminophen TAB* 325 MG PO PRN ×2 (08:50→15:42)
--- NOTE | 2018-11-29 12:50 | PMRUTEAM ---
PMRU: Team Meeting Current Status: Nursing: Current Status Skin Deviations [Upper Back] Rash Skin Deviations [Bilateral Eye Other ] Skin Deviations [Bilateral Rash Buttocks] Skin Deviations [Right Hip] Incision Skin Deviation Description [ red raised rash to middle of back Upper Back] Skin Deviation Description [ pink - better than last night Bilateral Eye] Skin Deviation Description [ pink, blanchable, lotion applied Bilateral Buttocks] Skin Deviation Description [ intact with clips. open to air Right Hip] Physical Therapy: Current Status Bed Mobility Assistance 2 or More Person Assist Transfer Mobility Assistance Max Assist Transfer/Bed Mobility EZ Stand Recommended Devices Ambulation Assistance Mod Assist,Max Assist Ambulation Assistive Devices Rolling Walker Number of Feet Patient 25 Ambulated Stairs Assistance Supervision Stairs Recommended Devices Two Rails Number of Stairs 3 Occupational Therapy: Current Status Upper Body Dressing Total Assist Upper Body Dressing Progress assist for all aspects to don shirt and bra Lower Body Dressing Total Assist,2 Person Assist Lower Body Dressing Progress assist for all aspects, 2 assist vs. EZ regrind mill operator standing Bathing Max Asst,2 Person Assist Bathing Progress assist for all aspects, 2 assist vs. EZ regrind mill operator standing Toileting Total Assist,2 Person Assist Toileting Progress assist for all aspects Toilet Transfer Total Assist,2 Person Assist Toilet Transfer Progress EZ stand Shower Transfer Progress TBA Eating Max Asst Eating Progress feeds patient Rec Therapy: Current Status Summary of Assessment and Recreation Therapy services introduced and Clinical Impression assessment is complete. Pt. has been involved in leisure and pet visits in the afternoons. Treatment Goals Pt. will engage in leisure activities while on the unit. Treatment Plan Provide recreation therapy and encourage involvement. Social Work: Current Status Discharge Plan return home with home care svs and family support Potential for Family Training pt's is attentive and involved Anticipated Discharge Home Destination Discharge With home care svs and family support Nutrition: Current Status Monitoring pt s/p right hip fx w/repair 11/21. Hx early dementia. She is eating a regular diet very well (consistently 75-100%) w/minimal assistance. Spouse present to help at times. Wt is within healthy BMI range and without large fluctuations. Skin is intact. Last BM 11/28. Full nutrition assessment pending. Tentative goals as outlined below. Speech: Current Status Assessment Patient is progressing slowly as expected. Given simple printed directions, patient read aloud with poor understanding of purpose. Given physical demonstration and prompting, and 5x repetions with cues faded and provided as neede, patient required maximal cueing to tell this racebook writer 4 simple steps to stand, and 3 steps to sit. Goals: Physical Therapy: Initial Goals Bed Mobility Assistance Independent Transfer Mobility Assistance Independent Transfer/Bed Mobility Rolling Walker Recommended Devices Ambulation Independent Ambulation Recommended Devices Rolling Walker Ambulation Distance 150 Stairs Assistance Independent Stair Recommended Devices Two Rails Number of Stairs 5 Physical Therapy: Updated Goals Transfer/Bed Mobility EZ Stand Recommended Devices Occupational Therapy: Initial Goals Goals to be Completed in (Days 3-4 weeks ) Upper Body Bathing Routine Minimal Contact Assist Lower Body Bathing Routine Moderate Assist Upper Body Dressing Routine Minimal Contact Assist,Moderate Assist Lower Body Dressing Routine Moderate Assist Toilet Hygeine and Clothing Minimal Contact Assist Management Routine Toilet Transfer Routine Minimal Contact Assist Step-In Shower Transfer Minimal Contact Assist Routine Functional Transfers for ADL Minimal Contact Assist Grooming Routine Supervision/Set Up Feeding Routine Supervision/Set Up Nutrition: Goals Intervention Goals 1. adequate intake to support stable wt, lean body mass, and hydration 2. maintain BG and serum electrolytes WNL 3. regulation of bowel pattern; no c/o constipation (or diarrhea) Speech: Goals Speech Goal 1 Language Comprehension Goal 1 Comments Language Comprehension Goals: Long-Term Goal: Pt will demonstrate comprehension of simple, one-part, concerte directions, 80% accuracy, given skilled instruction, Moderate cueing, and extra time. Status: Progressing slowly as expected. Short-Term Goal: Pt will demonstrate comprehension of simple, one-part, concerte directions, 80% accuracy, given skilled instruction, Maximal cueing, and extra time. Status: Progressing slowly as expected. Patient followed 70% of directions given maximal directions Speech Goal 2 Problem Solving Speech Goal 2 Comments Problem Solving Goals: Long-Term Goal: Pt will solve simple routine problems, for transfer and mobility safety, adaptive dressing, time and money management; with 80% accuracy, given Moderate cueing. Status: Progressing slowly as expected. Short-Term Goal: Pt will solve simple routine problems, for transfer and mobility safety, adaptive dressing, time and money management; with 80% accuracy, given skilled instruction, Maximum cueing, and extra time. Status: Progressing slowly as expected. Social Work: Goals Discharge Plan return home with home care svs and family support Potential for Family Training pt's is attentive and involved Anticipated Discharge Home Destination Discharge With home care svs and family support Care Plan: Care Plan ADL's - Improve/Maintain Start: 11/23/18 16:15 Freq: DAILY Status: Active Target: Protocol: Activity Type Activity Date Activity User E-Sign Co-Sign Detail Recorded Client Recorded Date Recorded By Document 11/28/18 16:24 [id number] 11/28/18 16:24 [id number] 11/28/18 16:24 PMRU Outcome: ADL's/ADL Transfers Orders/Interventions Occupational Therapy Evaluation & Treatment Communication Tool in Patient Room Device Yes Address Deficits Secondary To: fall s/p Right hip ad Patient to receive OT 5x/wk for 60-120 Therex min/day Self Care Management Group Therapy UE/LE ADL's with Assist Yes: modA ADL Transfers with Assist Yes: Britt Toileting: Transfers,Clothing Management Yes: Britt ,Hygeine w/Assist Light Kitchen/Laundry w/Assist No Outcome/Goals Met Pt participated fair in ADL treatment session, would attempt to complete tasks when asked, but easily distractible and continues to demonstrate decreased functional use/ coordination and decreased attention to RUE. Communication-Improve/Maintain Start: 11/23/18 12:46 Freq: DAILY Status: Active Target: Protocol: Activity Type Activity Date Activity User E-Sign Co-Sign Detail Recorded Client Recorded Date Recorded By Document 11/29/18 12:26 [id number] [email or web address] 11/29/18 12:27 [id number] 11/29/18 12:26 PMRU Outcome: Communication/Cognitive Status Other Outcomes/Goals Language Comprehension Goals: Long-Term Goal: Pt will demonstrate comprehension of simple, one- part, concerte directions, 80% accuracy, given skilled instruction, Moderate cueing , and extra time. Status: Progressing slowly as expected. Short-Term Goal : Pt will demonstrate comprehension of simple, one- part3, concerte directions, 80 % accuracy, given skilled instruction, Maximal cueing, and extra time . Status: Progressing slowly as expected. Problem Solving Goals: Long-Term Goal: Pt will solve simple routine problems, for transfer and mobility safety , adaptive dressing, time and money management; with 80% accuracy, given Moderate cueing. Status: Progressing slowly as expected. Short-Term Goal : Pt will solve simple routine problems, for transfer and mobility safety , adaptive dressing, time and money management; with 80% accuracy, given skilled instruction, Maximum cueing, and extra time . Status: Progressing slowly as expected. Plan: Consult PT/OT and treat 15-30 ST treatment min/ 3days/1 week plus consultation time PRN Outcome/Goals Met Comment Patient is progressing slowly as expected. Given simple printed directions, patient read aloud with poor understanding of purpose. Given physical demonstration and prompting, and 5x repetions with cues faded and provided as neede, patient required maximal cueing to tell this racebook writer 4 simple steps to stand , and 3 steps to sit. DVT Prophylaxis- Improve/Maintain Start: 11/23/18 12:46 Freq: QSHIFT Status: Active Target: Protocol: Activity Type Activity Date Activity User E-Sign Co-Sign Detail Recorded Client Recorded Date Recorded By Document 11/29/18 09:30 [id number] 11/29/18 09:32 [id number] 11/29/18 09:30 PMRU Outcome: DVT Prophylaxis Outcome/Goals Remains Free of DVT Free of complications from current DVT TEDS Stockings on Every AM, Off at HS Progression Toward Outcome/Goals Progressing Discharge Planning - Improve/Maintain Start: 11/23/18 12:46 Freq: DAILY Status: Active Target: Protocol: Activity Type Activity Date Activity User E-Sign Co-Sign Detail Recorded Client Recorded Date Recorded By Document 11/29/18 00:38 [id number] 11/29/18 00:38 [id number] 11/29/18 00:38 PMRU Outcome: Discharge Planning Update Patient Family No Outcome/Goals Demonstrates Understanding of Discharge Plan Education-Improve/Maintain Start: 11/23/18 12:46 Freq: QSHIFT Status: Active Target: Protocol: Activity Type Activity Date Activity User E-Sign Co-Sign Detail Recorded Client Recorded Date Recorded By Document 11/29/18 09:30 [id number] 11/29/18 09:32 [id number] 11/29/18 09:30 PMRU Outcome: Education Outcome/Goals Encourage Questions Progression Toward Outcome/Goals Progressing /GI-Improve/Maintain Start: 11/23/18 12:46 Freq: QSHIFT Status: Active Target: Protocol: Activity Type Activity Date Activity User E-Sign Co-Sign Detail Recorded Client Recorded Date Recorded By Document 11/29/18 09:30 [id number] 11/29/18 09:32 [id number] 11/29/18 09:30 PMRU Outcome: Genitourinary/ Gastrointestinal Genitourinary- Outcome/Goals Maintain/ Achieve Urinary Continence Maintain/ Achieve Adequate Urinary Output Progression Toward Outcome/Goals - Progressing Outcome/Goals Met Comment pt incontinent of urine this am. Medication Administration Start: 11/23/18 12:46 Freq: QSHIFT Status: Active Target: Protocol: Activity Type Activity Date Activity User E-Sign Co-Sign Detail Recorded Client Recorded Date Recorded By Document 11/29/18 09:30 [id number] 11/29/18 09:32 [id number] 11/29/18 09:30 PMRU Outcome: Medication Administration Assess Patient Knowledge/Teach Med Yes Education for all Meds Outcome/Goals Family/ Caregiver Administer Medications at Home Progression Towards Outcome/Goals Progressing Is Patient Going Home on Lovenox? No Pain/Comfort- Improve/Maintain Start: 11/23/18 12:46 Freq: QSHIFT Status: Active Target: Protocol: Activity Type Activity Date Activity User E-Sign Co-Sign Detail Recorded Client Recorded Date Recorded By Document 11/29/18 09:30 [id number] 11/29/18 09:32 [id number] 11/29/18 09:30 PMRU Outcome: Pain/Comfort Outcome/Goals Maintain Comfort Level Allowing Patient to Fully Participate in Rehab Progression Toward Outcome/Goals Progressing Outcome/Goals Met Comment tylenol for discomfort this am Safety- Improve/Maintain Start: 11/23/18 12:46 Freq: QSHIFT Status: Active Target: Protocol: Activity Type Activity Date Activity User E-Sign Co-Sign Detail Recorded Client Recorded Date Recorded By Document 11/29/18 00:39 [id number] 11/29/18 00:39 [id number] 11/29/18 00:39 PMRU Outcome: Safety Outcome/Goals Remain Free of Injury or Harm Progression Toward Outcome/Goals Progressing Outcome/Goals Met Comment BA armed Skin- Improve/Maintain Start: 11/23/18 12:46 Freq: QSHIFT Status: Active Target: Protocol: Activity Type Activity Date Activity User E-Sign Co-Sign Detail Recorded Client Recorded Date Recorded By Document 11/29/18 09:30 [id number] 11/29/18 09:32 [id number] 11/29/18 09:30 PMRU Outcome: Skin Skin Risk Level High Outcome/Goals Maintain/ Improve Skin Intergrity Surgical Incisions Healing Progression Toward Outcome/Goals Progressing Outcome/Goals Met Comment incision open to air Medicine Note: Length of Stay: 3 weeks Anticipated Discharge Destination: Home Tentative Discharge Date: 12/20/18 Discharged to: Home
--- NOTE | 2018-11-29 18:07 | PN ---
Progress Note Date of Service: 11/29/18 Note: JARRETT MUSTAFA was visited. Therapy notes read and reviewed. She was discussed in interdisciplinary team rounds and she seems to be walking better. Still needs a lot of help toileting. Will watch ADLs. Able to feed herself tonight Current Medications: Active Medications Generic Name Dose Route Start Last Admin Trade Name Freq PRN Reason Stop Dose Admin Acetaminophen 650 mg 11/23/18 15:53 11/29/18 15:42 Tylenol Tab* PO 650 mg Q4H PRN Administration FEVER/PAIN Bisacodyl 10 mg 11/23/18 20:45 11/23/18 21:11 Dulcolax Supp* [place] 10 mg DAILY PRN Administration CONSTIPATION Docusate Sodium 100 mg 11/23/18 21:00 11/29/18 08:47 Colace Cap* PO 100 mg BID ABILIO Administration Heparin Sodium (Porcine) 5,000 units 11/23/18 22:00 11/29/18 14:51 Heparin Vial(*) SUBCUT 5,000 units Q8HR ABILIO Administration Magnesium Hydroxide 30 ml 11/23/18 15:53 Milk Of Magnesia Liq* PO Q6H PRN CONSTIPATION Memantine 10 mg 11/23/18 21:00 11/29/18 08:48 Namenda Tab* PO 10 mg BID ABILIO Administration Mirabegron 25 mg 11/26/18 09:00 11/29/18 08:47 Myrbetriq (Nf) PO 25 mg DAILY ABILIO Administration Polyethyl Glycol/Propylene Glycol 1 drop 11/23/18 21:00 11/29/18 08:48 Lubricant Eye Drops BOTH EYES 1 drop BID ABILIO Administration Polyethylene Glycol/Electrolytes 17 gm 11/24/18 09:00 11/29/18 08:47 Miralax* PO 17 gm DAILY ABILIO Administration Senna 2 tab 11/23/18 15:53 11/25/18 21:25 Senokot Tab* PO 2 tab BEDTIME PRN Administration CONSTIPATION Tramadol HCl 50 mg 11/23/18 16:02 Ultram* PO Q6H PRN PAIN - MODERATE Vital Signs: Vital Signs Temp Pulse Resp BP Pulse Ox 97.6 F 88 18 127/51 96 11/29/18 16:01 11/29/18 16:01 11/29/18 16:01 11/29/18 16:01 11/29/18 16:39 Exam: HEENT: EOMI LUNGS: Clear bilaterally HEART: reg rhythm ABDOMEN: Soft, +BS EXTREMITIES: Right hip wound C/D/I NEUROLOGIC: Alert, oriented to self. Right leg 3+/5 due to pain, left leg 4+/5 Assessment/Plan: 1. Right Hip Fracture: WBAT. PT/OT. Follow up with Dr. Garland 2. Cognitive Decline/Dementia: Aricept/Namenda 3. DVT Prophylaxis: Heparin S/Q 4. Advance Directives: Full Code. is Surrogate Decision maker 5. Bladder Spasms/OAB: Myrbetriq 6. Right neglect: comes and goes. will watch. 11/29/18 18:07
[2018-11-30] MEDS: Heparin VIAL(*) 5000 UNITS/ML VIAL (FIVE THOUSAND) SUBCUT SCH ×3 (06:10→22:44)
[2018-11-30] MEDS: MEMANTINE 10 MG PO SCH ×2 (09:22→21:14)
[2018-11-30] MEDS: Docusate CAP* 100 MG PO SCH ×2 (09:22→21:14)
[2018-11-30] MEDS: DONEPEZIL HCL 10 MG PO SCH ×2 (09:22→21:15)
[2018-11-30] MEDS: PTO:Polyethyl Glycol/Propylene Gly OPHTH.SOLN BOTH EYES SCH ×2 (09:24→21:17)
[2018-11-30] MEDS: MIRABEGRON 25 MG PO SCH (09:24)
[2018-11-30] MEDS: Polyethylene Glycol 3350* 17 GM PACKET PO SCH (09:25)
[2018-11-30] MEDS: Acetaminophen TAB* 325 MG PO PRN ×2 (10:16→21:14)
--- NOTE | 2018-11-30 19:06 | PN ---
Progress Note Date of Service: 11/30/18 Note: JARRETT MUSTAFA was visited. Therapy notes read and reviewed. Was able to walk 150 feet today with min-mod assist. Toileting remains difficult. will observe tomorrow. Myrbetriq does not seem to be helping, unclear if that is due to altered mobility Current Medications: Active Medications Generic Name Dose Route Start Last Admin Trade Name Freq PRN Reason Stop Dose Admin Acetaminophen 650 mg 11/23/18 15:53 11/30/18 10:16 Tylenol Tab* PO 650 mg Q4H PRN Administration FEVER/PAIN Bisacodyl 10 mg 11/23/18 20:45 11/23/18 21:11 Dulcolax Supp* [place] 10 mg DAILY PRN Administration CONSTIPATION Docusate Sodium 100 mg 11/23/18 21:00 11/30/18 09:22 Colace Cap* PO 100 mg BID ABILIO Administration Heparin Sodium (Porcine) 5,000 units 11/23/18 22:00 11/30/18 15:46 Heparin Vial(*) SUBCUT 5,000 units Q8HR ABILIO Administration Magnesium Hydroxide 30 ml 11/23/18 15:53 Milk Of Magnesia Liq* PO Q6H PRN CONSTIPATION Memantine 10 mg 11/23/18 21:00 11/30/18 09:22 Namenda Tab* PO 10 mg BID ABILIO Administration Mirabegron 25 mg 11/26/18 09:00 11/30/18 09:24 Myrbetriq (Nf) PO 25 mg DAILY ABILIO Administration Polyethyl Glycol/Propylene Glycol 1 drop 11/23/18 21:00 11/30/18 09:24 Lubricant Eye Drops BOTH EYES 1 drop BID ABILIO Administration Polyethylene Glycol/Electrolytes 17 gm 11/24/18 09:00 11/30/18 09:25 Miralax* PO 17 gm DAILY ABILIO Administration Senna 2 tab 11/23/18 15:53 11/25/18 21:25 Senokot Tab* PO 2 tab BEDTIME PRN Administration CONSTIPATION Tramadol HCl 50 mg 11/23/18 16:02 Ultram* PO Q6H PRN PAIN - MODERATE Vital Signs: Vital Signs Temp Pulse Resp BP Pulse Ox 98.4 F 68 18 112/39 100 11/30/18 16:16 11/30/18 16:16 11/30/18 16:16 11/30/18 16:16 11/30/18 17:19 Exam: HEENT: EOMI LUNGS: Clear bilaterally HEART: reg rhythm ABDOMEN: Soft, +BS EXTREMITIES: Right hip wound C/D/I NEUROLOGIC: Alert, oriented to self. Right leg 3+/5 due to pain, left leg 4+/5 Assessment/Plan: 1. Right Hip Fracture: WBAT. PT/OT. Follow up with Dr. Garland 2. Cognitive Decline/Dementia: Aricept/Namenda 3. DVT Prophylaxis: Heparin S/Q 4. Advance Directives: Full Code. is Surrogate Decision maker 5. Bladder Spasms/OAB: Myrbetriq 6. Right neglect: comes and goes. will watch. 11/30/18 19:07
[2018-12-01] MEDS: Heparin VIAL(*) 5000 UNITS/ML VIAL (FIVE THOUSAND) SUBCUT SCH ×3 (06:08→22:14)
[2018-12-01] MEDS: Docusate CAP* 100 MG PO SCH ×2 (09:13→19:46)
[2018-12-01] MEDS: MEMANTINE 10 MG PO SCH ×2 (09:14→19:47)
[2018-12-01] MEDS: DONEPEZIL HCL 10 MG PO SCH ×2 (09:14→19:46)
[2018-12-01] MEDS: MIRABEGRON 25 MG PO SCH (09:14)
[2018-12-01] MEDS: PTO:Polyethyl Glycol/Propylene Gly OPHTH.SOLN BOTH EYES SCH ×2 (09:15→19:47)
[2018-12-01] MEDS: Polyethylene Glycol 3350* 17 GM PACKET PO SCH (09:15)
[2018-12-01] MEDS: Acetaminophen TAB* 325 MG PO PRN ×2 (09:24→19:48)
--- NOTE | 2018-12-01 20:15 | PN ---
Progress Note Date of Service: 12/01/18 Note: JARRETT MUSTAFA was visited. Therapy notes read and reviewed. She did family training today and it went well. Continuing rehab Current Medications: Active Medications Generic Name Dose Route Start Last Admin Trade Name Freq PRN Reason Stop Dose Admin Acetaminophen 650 mg 11/23/18 15:53 12/01/18 19:48 Tylenol Tab* PO 650 mg Q4H PRN Administration FEVER/PAIN Bisacodyl 10 mg 11/23/18 20:45 11/23/18 21:11 Dulcolax Supp* [place] 10 mg DAILY PRN Administration CONSTIPATION Docusate Sodium 100 mg 11/23/18 21:00 12/01/18 19:46 Colace Cap* PO 100 mg BID ABILIO Administration Heparin Sodium (Porcine) 5,000 units 11/23/18 22:00 12/01/18 14:00 Heparin Vial(*) SUBCUT 5,000 units Q8HR ABILIO Administration Magnesium Hydroxide 30 ml 11/23/18 15:53 Milk Of Magnesia Liq* PO Q6H PRN CONSTIPATION Memantine 10 mg 11/23/18 21:00 12/01/18 19:47 Namenda Tab* PO 10 mg BID ABILIO Administration Mirabegron 25 mg 11/26/18 09:00 12/01/18 09:14 Myrbetriq (Nf) PO 25 mg DAILY ABILIO Administration Polyethyl Glycol/Propylene Glycol 1 drop 11/23/18 21:00 12/01/18 19:47 Lubricant Eye Drops BOTH EYES 1 drop BID ABILIO Administration Polyethylene Glycol/Electrolytes 17 gm 11/24/18 09:00 12/01/18 09:15 Miralax* PO 17 gm DAILY ABILIO Administration Senna 2 tab 11/23/18 15:53 11/25/18 21:25 Senokot Tab* PO 2 tab BEDTIME PRN Administration CONSTIPATION Tramadol HCl 50 mg 11/23/18 16:02 Ultram* PO Q6H PRN PAIN - MODERATE Vital Signs: Vital Signs Temp Pulse Resp BP Pulse Ox 98.1 F 89 16 117/48 97 12/01/18 14:14 12/01/18 14:14 12/01/18 14:14 12/01/18 14:14 12/01/18 19:26 Exam: HEENT: EOMI LUNGS: Clear bilaterally HEART: reg rhythm ABDOMEN: Soft, +BS EXTREMITIES: Right hip wound C/D/I NEUROLOGIC: Alert, oriented to self. Right leg 3+/5 due to pain, left leg 4+/5 Assessment/Plan: 1. Right Hip Fracture: WBAT. PT/OT. Follow up with Dr. Garland 2. Cognitive Decline/Dementia: Aricept/Namenda 3. DVT Prophylaxis: Heparin S/Q 4. Advance Directives: Full Code. is Surrogate Decision maker 5. Bladder Spasms/OAB: Myrbetriq. ?effect 12/01/18 20:15
[2018-12-02] MEDS: Acetaminophen TAB* 325 MG PO PRN ×3 (03:30→19:55)
[2018-12-02] MEDS: Heparin VIAL(*) 5000 UNITS/ML VIAL (FIVE THOUSAND) SUBCUT SCH ×3 (05:24→22:41)
[2018-12-02 05:42] LABS: Hematocrit 30 % (35-47); Hemoglobin 10.1 g/dL (12.0-16.0); Mean Corpuscular HGB Conc 34 g/dL (31-36); Mean Corpuscular Hemoglobin 32 pg (27-31); Mean Corpuscular Volume 96 fL (80-97); Mean Platelet Volume 6.9 fL (7.4-10.4); Platelet Count 469 10^3/uL (150-450); Red Cell Distribution Width 14 % (10-15); White Blood Count 17.7 10^3/uL (3.5-10.8)
[2018-12-02 06:06] LABS: Albumin 3.2 g/dL (3.2-5.2); Albumin/Globulin Ratio 1.1 (1-3); BUN/Creatinine Ratio 27.4 (8-20); Calcium 9.1 mg/dL (8.6-10.3); EGFR African American 92.8 (>60); EGFR Non-African American 76.7 (>60); Globulin 2.8 g/dL (2-4); Potassium 4.4 mmol/L (3.5-5.0); Total Bilirubin 0.3 mg/dL (0.2-1.0)
[2018-12-02 07:07] LABS: ABS Basophils 0.2 10^3/ul (0-0.2); ABS Eosinophils 0.3 10^3/ul (0-0.6); ABS Lymphocytes 3.3 10^3/ul (1.0-4.8); ABS Monocytes 2.2 10^3/ul (0-0.8); ABS Neutrophils 11.8 10^3/ul (1.5-7.7); Eosinophil % 1.6 %; Lymphocyte % 18.4 %
[2018-12-02] MEDS: Docusate CAP* 100 MG PO SCH ×2 (09:03→19:55)
[2018-12-02] MEDS: MIRABEGRON 25 MG PO SCH (09:04)
[2018-12-02] MEDS: DONEPEZIL HCL 10 MG PO SCH ×2 (09:04→19:56)
[2018-12-02] MEDS: Polyethylene Glycol 3350* 17 GM PACKET PO SCH (09:05)
[2018-12-02] MEDS: MEMANTINE 10 MG PO SCH ×2 (09:05→19:57)
[2018-12-02] MEDS: PTO:Polyethyl Glycol/Propylene Gly OPHTH.SOLN BOTH EYES SCH ×2 (09:08→19:57)
--- NOTE | 2018-12-02 10:28 | PN ---
Progress Note Date of Service: 12/02/18 Note: JARRETT MUSTAFA was visited. Nursing and therapy notes read and reviewed. No chest pain, shortness of breath or abdominal pain. No cough or dysuria. Current Medications: Active Medications Generic Name Dose Route Start Last Admin Trade Name Freq PRN Reason Stop Dose Admin Acetaminophen 650 mg 11/23/18 15:53 12/02/18 09:05 Tylenol Tab* PO 650 mg Q4H PRN Administration FEVER/PAIN Bisacodyl 10 mg 11/23/18 20:45 11/23/18 21:11 Dulcolax Supp* [place] 10 mg DAILY PRN Administration CONSTIPATION Docusate Sodium 100 mg 11/23/18 21:00 12/02/18 09:03 Colace Cap* PO 100 mg BID ABILIO Administration Heparin Sodium (Porcine) 5,000 units 11/23/18 22:00 12/02/18 05:24 Heparin Vial(*) SUBCUT 5,000 units Q8HR ABILIO Administration Hydrocortisone 1 applic 12/02/18 09:11 Hytone Cream 1%* TOPICAL TID PRN itching rash Magnesium Hydroxide 30 ml 11/23/18 15:53 Milk Of Magnesia Liq* PO Q6H PRN CONSTIPATION Memantine 10 mg 11/23/18 21:00 12/02/18 09:05 Namenda Tab* PO 10 mg BID ABILIO Administration Mirabegron 25 mg 11/26/18 09:00 12/02/18 09:04 Myrbetriq (Nf) PO 25 mg DAILY ABILIO Administration Polyethyl Glycol/Propylene Glycol 1 drop 11/23/18 21:00 12/02/18 09:08 Lubricant Eye Drops BOTH EYES 1 drop BID ABILIO Administration Polyethylene Glycol/Electrolytes 17 gm 11/24/18 09:00 12/02/18 09:05 Miralax* PO 17 gm DAILY ABILIO Administration Senna 2 tab 11/23/18 15:53 11/25/18 21:25 Senokot Tab* PO 2 tab BEDTIME PRN Administration CONSTIPATION Tramadol HCl 50 mg 11/23/18 16:02 Ultram* PO Q6H PRN PAIN - MODERATE Aricept 10mg bid confirmed with pharmacy and in AUG despite not on this list. Vital Signs: Vital Signs Temp Pulse Resp BP Pulse Ox 98.1 F 75 20 131/56 100 12/02/18 06:35 12/02/18 06:35 12/02/18 06:35 12/02/18 06:35 12/02/18 06:35 Lab Results: Laboratory Results - last 24 hr 12/02/18 12/02/18 05:26 05:26 WBC 17.7 H RBC 3.10 L Hgb 10.1 L Hct 30 L MCV 96 MCH 32 H MCHC 34 RDW 14 Plt Count 469 H D MPV 6.9 L Neut % (Auto) 66.3 Lymph % (Auto) 18.4 [place] % (Auto) 12.7 Eos % (Auto) 1.6 Baso % (Auto) 1.0 Absolute Neuts (auto) 11.8 H Absolute Lymphs (auto) 3.3 Absolute Monos (auto) 2.2 H Absolute Eos (auto) 0.3 Absolute Basos (auto) 0.2 Absolute Nucleated RBC 0.0 Nucleated RBC % 0.0 Sodium 138 Potassium 4.4 Chloride 105 Carbon Dioxide 26 Anion Gap 7 BUN 20 Creatinine 0.73 Est GFR ( Amer) 92.8 Est GFR (Non-Af Amer) 76.7 BUN/Creatinine Ratio 27.4 H Glucose 111 H Calcium 9.1 Total Bilirubin 0.30 AST 18 ALT 32 Alkaline Phosphatase 73 Total Protein 6.0 L Albumin 3.2 Globulin 2.8 Albumin/Globulin Ratio 1.1 Exam: GEN: no acute distress. alert and appropriate. poor memory and oriented to self. LUNGS: Clear to auscultation bilaterally HEART: regular rate and rhythm ABDOMEN: Soft, +bowel sounds, non-tender, non-distended EXTREMITIES: Right hip wound C/D/I with arian. NEUROLOGIC: Right hip and knee at least 3/5 due to pain. Rest of BLE at least 4 +/5 motor with normal sensation. She has difficulty following directions. SKIN: papular rash on back. Assessment/Plan: 1. Right Hip Fracture: WBAT. PT/OT. Follow up with Dr. Garland 2. Cognitive Decline/Dementia: Aricept/Namenda 3. DVT Prophylaxis: Heparin S/Q 4. Advance Directives: Full Code. is Surrogate Decision maker 5. Bladder Spasms/OAB: Myrbetriq. 6. Rash on back: hydrocorisone cream tid prn. 7. Leukocytosis: This has flucutated since admission to the hospital. She is afebrile. Will recheck UA and CXR and get blood cultures x2. Check lactic acid. May be reactive to back rash. CBC in AM. 12/02/18 10:37
[2018-12-02 15:07] LABS: Urine Appearance Turbid; Urine Bacteria Absent (Absent); Urine Bilirubin Negative (Negative); Urine Blood 2+ (Negative); Urine Color Yellow; Urine Glucose Negative (Negative); Urine Ketones Negative (Negative); Urine Nitrite Negative (Negative); Urine Protein Negative (Negative); Urine Red Blood Cell 2+(6-10/hpf) (Absent); Urine Specific Gravity 1.017 (1.010-1.030); Urine Squamous Epithelial Cell Present (Absent); Urine Urobilinogen Negative (Negative); Urine White Blood Cell Trace(0-5/hpf) (Absent)
[2018-12-03] MEDS: Acetaminophen TAB* 325 MG PO PRN ×3 (00:40→22:24)
[2018-12-03 04:39] LABS: Hematocrit 30 % (35-47); Hemoglobin 10.1 g/dL (12.0-16.0); Mean Corpuscular HGB Conc 33 g/dL (31-36); Mean Corpuscular Hemoglobin 32 pg (27-31); Mean Corpuscular Volume 95 fL (80-97); Mean Platelet Volume 7.2 fL (7.4-10.4); Platelet Count 274 10^3/uL (150-450); Red Blood Count 3.17 10^6 /uL (3.70-4.87); Red Cell Distribution Width 14 % (10-15); White Blood Count 23.7 10^3/uL (3.5-10.8)
[2018-12-03 04:57] LABS: ABS Basophils 0.2 10^3/ul (0-0.2); ABS Eosinophils 0.3 10^3/ul (0-0.6); ABS Lymphocytes 4.5 10^3/ul (1.0-4.8); ABS Monocytes 2.5 10^3/ul (0-0.8); ABS Neutrophils 16.2 10^3/ul (1.5-7.7); Eosinophil % 1.4 %; Nucleated Red Blood Cells % 0.1
[2018-12-03] MEDS: Heparin VIAL(*) 5000 UNITS/ML VIAL (FIVE THOUSAND) SUBCUT SCH ×3 (05:31→22:25)
--- NOTE | 2018-12-03 09:27 | PN ---
Progress Note Date of Service: 12/03/18 Note: JARRETT MUSTAFA was visited. Nursing and therapy notes read and reviewed. She was more restless last night but has no recollection of it and feels she slept very well last night. No chest pain, shortness of breath or abdominal pain. Her is here visiting. Current Medications: Active Medications Generic Name Dose Route Start Last Admin Trade Name Freq PRN Reason Stop Dose Admin Acetaminophen 650 mg 11/23/18 15:53 12/03/18 00:40 Tylenol Tab* PO 650 mg Q4H PRN Administration FEVER/PAIN Bisacodyl 10 mg 11/23/18 20:45 11/23/18 21:11 Dulcolax Supp* [place] 10 mg DAILY PRN Administration CONSTIPATION Docusate Sodium 100 mg 11/23/18 21:00 12/02/18 19:55 Colace Cap* PO 100 mg BID ABILIO Administration Heparin Sodium (Porcine) 5,000 units 11/23/18 22:00 12/03/18 05:31 Heparin Vial(*) SUBCUT 5,000 units Q8HR ABILIO Administration Hydrocortisone 1 applic 12/02/18 09:11 Hytone Cream 1%* TOPICAL TID PRN itching rash Magnesium Hydroxide 30 ml 11/23/18 15:53 Milk Of Magnesia Liq* PO Q6H PRN CONSTIPATION Memantine 10 mg 11/23/18 21:00 12/02/18 19:57 Namenda Tab* PO 10 mg BID ABILIO Administration Mirabegron 25 mg 11/26/18 09:00 12/02/18 09:04 Myrbetriq (Nf) PO 25 mg DAILY ABILIO Administration Polyethyl Glycol/Propylene Glycol 1 drop 11/23/18 21:00 12/02/18 19:57 Lubricant Eye Drops BOTH EYES Not Given BID ABILIO Polyethylene Glycol/Electrolytes 17 gm 11/24/18 09:00 12/02/18 09:05 Miralax* PO 17 gm DAILY ABILIO Administration Senna 2 tab 11/23/18 15:53 11/25/18 21:25 Senokot Tab* PO 2 tab BEDTIME PRN Administration CONSTIPATION Tramadol HCl 50 mg 11/23/18 16:02 Ultram* PO Q6H PRN PAIN - MODERATE Also, Aricept 10mg bid. Vital Signs: Vital Signs Temp Pulse Resp BP Pulse Ox 98.2 F 76 16 119/52 98 12/03/18 05:52 12/03/18 05:52 12/03/18 05:52 12/03/18 05:52 12/03/18 05:52 Lab Results: Laboratory Results - last 24 hr 12/02/18 12/02/18 12/03/18 10:29 14:22 04:33 WBC 23.7 H RBC 3.17 L Hgb 10.1 L Hct 30 L MCV 95 MCH 32 H MCHC 33 RDW 14 Plt Count 274 MPV 7.2 L Neut % (Auto) 68.4 Lymph % (Auto) 19.0 [place] % (Auto) 10.3 Eos % (Auto) 1.4 Baso % (Auto) 0.9 Absolute Neuts (auto) 16.2 H Absolute Lymphs (auto) 4.5 Absolute Monos (auto) 2.5 H Absolute Eos (auto) 0.3 Absolute Basos (auto) 0.2 Absolute Nucleated RBC 0.0 Nucleated RBC % 0.1 Lactic Acid 1.1 Urine Color Yellow Urine Appearance Turbid Urine pH 6.0 Ur Specific [place] 1.017 Urine Protein Negative Urine Ketones Negative Urine Blood 2+ A Urine Nitrate Negative Urine Bilirubin Negative Urine Urobilinogen Negative Ur Leukocyte Esterase Negative Urine WBC (Auto) Trace(0-5/hpf) Urine RBC (Auto) 2+(6-10/hpf) A Ur Squamous Epith Cells Present A Urine Bacteria Absent Urine Glucose Negative Exam: GEN: no acute distress. alert and appropriate. poor memory and oriented to self. LUNGS: Clear to auscultation bilaterally HEART: regular rate and rhythm ABDOMEN: Soft, +bowel sounds, non-tender, non-distended EXTREMITIES: Right hip wound C/D/I with arian. NEUROLOGIC: Right hip and knee at least 4/5 due to pain. Rest of BLE at least 4 +/5 motor with normal sensation. She has difficulty following directions. SKIN: papular rash on back not as erythematous as yesterday CXR 12/02/18 showed left lung base linear atelectasis vs parenchymal scarring. Assessment/Plan: 1. Right Hip Fracture: WBAT. PT/OT. Follow up with Dr. Garland 2. Cognitive Decline/Dementia: Aricept/Namenda 3. DVT Prophylaxis: Heparin S/Q 4. Advance Directives: Full Code. is Surrogate Decision maker 5. Bladder Spasms/OAB: Myrbetriq. 6. Rash on back: hydrocorisone cream tid prn. 7. Leukocytosis: Increasing. relates about 18mo ago Baltazar noted increased WBCs but they were better on recheck. The labs were part of her participation in a clinical trial for her cognitive impairment. He also advised that her mother of acute leukemia in her 70's and the patient and her siblings did not want to do any susceptibility testing offered by the doctors. She has had some degree of leukocytosis since admission and really has not been febrile or showing other signs of infection. Lactic acid normal . Blood cx x2 are pending from draw 12/02/18. I d/w with hematology consultation and he is in agreement. Dr. Rowe called and will see. 12/03/18 09:24
[2018-12-03] MEDS: DONEPEZIL HCL 10 MG PO SCH ×2 (09:59→22:21)
[2018-12-03] MEDS: MEMANTINE 10 MG PO SCH ×2 (10:00→22:21)
[2018-12-03] MEDS: MIRABEGRON 25 MG PO SCH (10:00)
[2018-12-03] MEDS: Docusate CAP* 100 MG PO SCH ×2 (10:01→22:21)
[2018-12-03] MEDS: PTO:Polyethyl Glycol/Propylene Gly OPHTH.SOLN BOTH EYES SCH ×2 (10:03→22:20)
[2018-12-03] MEDS: Polyethylene Glycol 3350* 17 GM PACKET PO SCH (10:37)
[2018-12-04 05:16] LABS: Hematocrit 31 % (35-47); Hemoglobin 10.3 g/dL (12.0-16.0); Mean Corpuscular HGB Conc 33 g/dL (31-36); Mean Corpuscular Hemoglobin 31 pg (27-31); Mean Corpuscular Volume 96 fL (80-97); Mean Platelet Volume 6.5 fL (7.4-10.4); Platelet Count 548 10^3/uL (150-450); Red Blood Count 3.29 10^6 /uL (3.70-4.87); Red Cell Distribution Width 14 % (10-15); White Blood Count 19.6 10^3/uL (3.5-10.8)
[2018-12-04 05:18] LABS: ABS Basophils 0.2 10^3/ul (0-0.2); ABS Eosinophils 0.2 10^3/ul (0-0.6); ABS Lymphocytes 3.3 10^3/ul (1.0-4.8); ABS Monocytes 1.9 10^3/ul (0-0.8); Eosinophil % 1.1 %; Lymphocyte % 16.7 %
[2018-12-04] MEDS: Heparin VIAL(*) 5000 UNITS/ML VIAL (FIVE THOUSAND) SUBCUT SCH ×3 (05:29→21:59)
[2018-12-04] MEDS: Acetaminophen TAB* 325 MG PO PRN ×4 (05:30→21:57)
[2018-12-04 08:12] LABS: Erythrocyte Sed Rate 67 mm/Hr (0-29)
[2018-12-04] MEDS: Polyethylene Glycol 3350* 17 GM PACKET PO SCH (09:07)
[2018-12-04] MEDS: MIRABEGRON 25 MG PO SCH (09:11)
[2018-12-04] MEDS: Docusate CAP* 100 MG PO SCH ×2 (09:11→21:58)
[2018-12-04] MEDS: DONEPEZIL HCL 10 MG PO SCH ×2 (09:11→21:56)
[2018-12-04] MEDS: MEMANTINE 10 MG PO SCH ×2 (09:12→21:56)
[2018-12-04] MEDS: PTO:Polyethyl Glycol/Propylene Gly OPHTH.SOLN BOTH EYES SCH ×2 (09:15→22:00)
--- NOTE | 2018-12-04 10:30 | PN ---
Progress Note Date of Service: 12/04/18 Note: JARRETT MUSTAFA was visited. Nursing notes read and reviewed. She feels good today. No chest pain, shortness of breath or abdominal pain. Current Medications: Active Medications Generic Name Dose Route Start Last Admin Trade Name Freq PRN Reason Stop Dose Admin Acetaminophen 650 mg 11/23/18 15:53 12/04/18 09:06 Tylenol Tab* PO 650 mg Q4H PRN Administration FEVER/PAIN Bisacodyl 10 mg 11/23/18 20:45 11/23/18 21:11 Dulcolax Supp* [place] 10 mg DAILY PRN Administration CONSTIPATION Docusate Sodium 100 mg 11/23/18 21:00 12/04/18 09:11 Colace Cap* PO 100 mg BID ABILIO Administration Heparin Sodium (Porcine) 5,000 units 11/23/18 22:00 12/04/18 05:29 Heparin Vial(*) SUBCUT 5,000 units Q8HR ABILIO Administration Hydrocortisone 1 applic 12/02/18 09:11 Hytone Cream 1%* TOPICAL TID PRN itching rash Magnesium Hydroxide 30 ml 11/23/18 15:53 Milk Of Magnsanjay Liq* PO Q6H PRN CONSTIPATION Memantine 10 mg 11/23/18 21:00 12/04/18 09:12 Namenda Tab* PO 10 mg BID ABILIO Administration Mirabegron 25 mg 11/26/18 09:00 12/04/18 09:11 Myrbetriq (Nf) PO 25 mg DAILY ABILIO Administration Polyethyl Glycol/Propylene Glycol 1 drop 11/23/18 21:00 12/04/18 09:15 Lubricant Eye Drops BOTH EYES 1 drop BID ABILIO Administration Polyethylene Glycol/Electrolytes 17 gm 11/24/18 09:00 12/04/18 09:07 Miralax* PO 17 gm DAILY ABILIO Administration Senna 2 tab 11/23/18 15:53 11/25/18 21:25 Senokot Tab* PO 2 tab BEDTIME PRN Administration CONSTIPATION Tramadol HCl 50 mg 11/23/18 16:02 Ultram* PO Q6H PRN PAIN - MODERATE Also Aricept 10mg bid Vital Signs: Vital Signs Temp Pulse Resp BP Pulse Ox 98.2 F 74 16 124/53 100 12/04/18 05:23 12/04/18 05:23 12/04/18 05:30 06/23/19 05:23 12/04/18 05:23 Lab Results: Laboratory Results - last 24 hr 12/04/18 05:10 WBC 19.6 H RBC 3.29 L Hgb 10.3 L Hct 31 L MCV 96 MCH 31 MCHC 33 RDW 14 Plt Count 548 H MPV 6.5 L Neut % (Auto) 71.5 Lymph % (Auto) 16.7 [place] % (Auto) 9.9 Eos % (Auto) 1.1 Baso % (Auto) 0.8 Absolute Neuts (auto) 14.0 H Absolute Lymphs (auto) 3.3 Absolute Monos (auto) 1.9 H Absolute Eos (auto) 0.2 Absolute Basos (auto) 0.2 Absolute Nucleated RBC 0.0 Nucleated RBC % 0.0 ESR 67 H Exam: GEN: no acute distress. alert and appropriate. poor memory and oriented to self. LUNGS: Clear to auscultation bilaterally HEART: regular rate and rhythm ABDOMEN: Soft, +bowel sounds, non-tender, non-distended EXTREMITIES: Right hip wound C/D/I with arian. NEUROLOGIC: Right hip and knee at least 4/5 due to pain. Rest of BLE at least 4 +/5 motor with normal sensation. She has difficulty following directions. SKIN: papular rash on back stable Assessment/Plan: 1. Right Hip Fracture: WBAT. PT/OT. Follow up with Dr. Garland 2. Cognitive Decline/Dementia: Aricept/Namenda 3. DVT Prophylaxis: Heparin S/Q 4. Advance Directives: Full Code. is Surrogate Decision maker 5. Bladder Spasms/OAB: Myrbetriq. 6. Rash on back: hydrocorisone cream tid prn. 7. Leukocytosis: At little better today. Seen by Dr. Rowe 12/03/18 and I d/w him. Will recheck in a week. ESR elevated, but may be from hip fracture. relates about 18mo ago Baltazar noted increased WBCs but they were better on recheck. also advised that her mother and a cousin of acute leukemia later in life. She has had some degree of leukocytosis since admission and has not been febrile or showing other signs of infection. Lactic acid normal 12/02/18. Blood cx x2 negative to date from draw 12/02/18. Urine culture negative from 12/02/18. CXR 12/02/18 showed left lung base linear atelectasis vs parenchymal scarring. 12/04/18 10:26
--- NOTE | 2018-12-04 15:40 | CONS ---
MEDICAL ONCOLOGY/HEMATOLOGY CONSULTATION NOTE: DATE OF CONSULT: 12/03/18 REASON FOR CONSULTATION: Leukocytosis. HISTORY OF PRESENT ILLNESS: Kristen Gomez is an 78-year-old female who was in her usual state of health with underlying early mild cognitive impairment/early dementia. On 11/19/18, she slipped on the hardwood floor while getting ready for bed and changing into bed clothes. She was found to have a fracture of the right femoral neck. She had a right hemiarthroplasty on 11/21/[address] Garland. She has done well from a postoperative standpoint and is currently in the rehab floor. She was noted to have an elevated white count at the time of admission of 11,600 and subsequent white count have been in the 13,000 to 17, 000 range on 12/02/18 and then on 12/03/18, 23.7. Associated with this, she was not anemic on admission and has had a stable hemoglobin postoperatively at 10.5 on 11/22/18 and currently 10.1. Platelet count was initially mildly low postoperatively in the 138,000 to 149,000 range and is currently 274,000. Peripheral smear was reviewed and is discussed in the impression below. PAST MEDICAL HISTORY: Status post hysterectomy in the 1980s for benign reasons , ovaries still in; status post ankle fracture greater than 20 years ago. No previous other hospitalizations. Ongoing mild cognitive impairment, although to my exam seems more or like some mild dementia. She was on a clinical trial of an experimental drug in 2017 to 2018, which subsequently was not brought to market and is no longer available. During this period of time, there was an isolated elevated white blood cell count in the mid teens per her , which then it returned to normal. MEDICATIONS: 1. Namenda 10 mg b.i.d. 2. Aricept 10 mg b.i.d. 3. Tramadol p.r.n. 4. Potassium. Medication at home: Myrbetriq. ALLERGIES: None. FAMILY HISTORY: Mother with ALL at age 72. Maternal first cousin also reported to have ALL in the 30s or 40s. These informations were provided by the patient's and he states that these individuals were seen in [place]. Two individuals with ALL in the same family would be somewhat unusual as adults. No other family history of malignancies. SOCIAL HISTORY: Lives with her in their own home. No children. Nonsmoker. Alcohol, several times per week at home. REVIEW OF SYSTEMS: Mild cognitive impairment. Knee pain, thought to be muscular in nature on the right, making her to be much less active within the past several months. Osteoarthritis. Urinary symptoms treated with Myrbetriq. No shortness of breath, chest pain or palpitations. No recent fevers, sweats , chills, cough, sore throat or other signs of infection. No significant bleeding or bruising. No changes in bowel or bladder habits except for which she is taking Myrbetriq. Review of systems otherwise negative. PHYSICAL EXAM: General: An 78-year-old female, in no acute distress. Vital Signs: Blood pressure 119/52, pulse 76, afebrile. HEENT: PERRL, EOMI. No erythema or exudate. No palpable cervical, supraclavicular, or axillary adenopathy. Lungs: Clear. Heart: Regular rate and rhythm without murmurs, rubs, or gallops. Abdomen: Soft, nontender, without masses or organomegaly. Extremities: No peripheral edema. IMPRESSION: Leukocytosis. Her peripheral smear was reviewed. There are no early forms noted. There are no significant bands. One Pelger Huet looking cell is seen. There was no toxic granulation in the white cells. No significant abnormalities are noted in either the platelet or the red cell series. Elevated white count. Mildly elevated preoperatively and more elevated postoperatively, now up to 23,000. It will be important to see if the white count continues to rise or if this is a transient elevation. There is nothing to suggest an underlying bone marrow problem by the other cell lines being normal and by the peripheral smear. If her white count continues to rise or if other cell lines fall, further evaluation of bone marrow will be necessary. Sedimentation rate has been ordered along with repeat CBC. If the sedimentation rate is on the order of 100, underlying hematologic malignancy including processes such as leukemia, lymphoma and myeloma would be more highly suspected than if the sedimentation rate were lower. If the white count starts to fall,recommendation that we just continue to follow the white cell count would be in order. Related to her family history, acute lymphoblastic leukemia does not tend in general to be a familial disease. There is also nothing to suggest rapid onset of acute lymphoblastic leukemia in this postoperative setting with no blast cells seen and other cell lines normal. [id number]/[facility] #: [id number] SUSANNA
[2018-12-05] MEDS: Acetaminophen TAB* 325 MG PO PRN ×3 (02:08→21:57)
[2018-12-05] MEDS: Heparin VIAL(*) 5000 UNITS/ML VIAL (FIVE THOUSAND) SUBCUT SCH ×3 (05:20→21:55)
[2018-12-05] MEDS: Docusate CAP* 100 MG PO SCH ×2 (09:00→21:54)
[2018-12-05] MEDS: MEMANTINE 10 MG PO SCH ×2 (09:01→21:54)
[2018-12-05] MEDS: MIRABEGRON 25 MG PO SCH (09:01)
[2018-12-05] MEDS: DONEPEZIL HCL 10 MG PO SCH ×2 (09:01→21:54)
[2018-12-05] MEDS: PTO:Polyethyl Glycol/Propylene Gly OPHTH.SOLN BOTH EYES SCH ×2 (09:02→21:55)
[2018-12-05] MEDS: Polyethylene Glycol 3350* 17 GM PACKET PO SCH (09:02)
--- NOTE | 2018-12-05 18:28 | PN ---
Progress Note Date of Service: 12/05/18 Note: JARRETT MUSTAFA was visited. Therapy notes read and reviewed. Her WBC have been chronically high. Had a work up with all cultures negative. She may be moving a little better Current Medications: Active Medications Generic Name Dose Route Start Last Admin Trade Name Freq PRN Reason Stop Dose Admin Acetaminophen 650 mg 11/23/18 15:53 12/05/18 13:22 Tylenol Tab* PO 650 mg Q4H PRN Administration FEVER/PAIN Bisacodyl 10 mg 11/23/18 20:45 11/23/18 21:11 Dulcolax Supp* [place] 10 mg DAILY PRN Administration CONSTIPATION Docusate Sodium 100 mg 11/23/18 21:00 12/05/18 09:00 Colace Cap* PO 100 mg BID ABILIO Administration Heparin Sodium (Porcine) 5,000 units 11/23/18 22:00 12/05/18 14:00 Heparin Vial(*) SUBCUT 5,000 units Q8HR ABILIO Administration Hydrocortisone 1 applic 12/02/18 09:11 Hytone Cream 1%* TOPICAL TID PRN itching rash Magnesium Hydroxide 30 ml 11/23/18 15:53 Milk Of Magnesia Liq* PO Q6H PRN CONSTIPATION Memantine 10 mg 11/23/18 21:00 12/05/18 09:01 Namenda Tab* PO 10 mg BID ABILIO Administration Mirabegron 25 mg 11/26/18 09:00 12/05/18 09:01 Myrbetriq (Nf) PO 25 mg DAILY ABILIO Administration Polyethyl Glycol/Propylene Glycol 1 drop 11/23/18 21:00 12/05/18 09:02 Lubricant Eye Drops BOTH EYES 1 drop BID ABILIO Administration Polyethylene Glycol/Electrolytes 17 gm 11/24/18 09:00 12/05/18 09:02 Miralax* PO 17 gm DAILY ABILIO Administration Senna 2 tab 11/23/18 15:53 11/25/18 21:25 Senokot Tab* PO 2 tab BEDTIME PRN Administration CONSTIPATION Tramadol HCl 50 mg 11/23/18 16:02 Ultram* PO Q6H PRN PAIN - MODERATE Vital Signs: Vital Signs Temp Pulse Resp BP Pulse Ox 97.5 F 77 20 112/53 100 12/05/18 16:05 12/05/18 16:05 12/05/18 16:05 12/05/18 16:05 12/05/18 16:05 Exam: GEN: no acute distress. alert and appropriate. poor memory and oriented to self. LUNGS: Clear to auscultation bilaterally HEART: regular rate and rhythm ABDOMEN: Soft, +bowel sounds, non-tender, non-distended EXTREMITIES: Right hip wound C/D/I with arian. NEUROLOGIC: Right hip and knee at least 4/5 due to pain. Rest of BLE at least 4 +/5 motor with normal sensation. She has difficulty following directions. Assessment/Plan: 1. Right Hip Fracture: WBAT. PT/OT. Follow up with Dr. Garland 2. Cognitive Decline/Dementia: Aricept/Namenda 3. DVT Prophylaxis: Heparin S/Q 4. Advance Directives: Full Code. is Surrogate Decision maker 5. Bladder Spasms/OAB: Myrbetriq. 6. Rash on back: hydrocorisone cream tid prn. 7. Leukocytosis: Follow, with repeat CBC at end of week 12/05/18 18:28
[2018-12-06] MEDS: Acetaminophen TAB* 325 MG PO PRN ×2 (02:16→20:07)
[2018-12-06] MEDS: Heparin VIAL(*) 5000 UNITS/ML VIAL (FIVE THOUSAND) SUBCUT SCH ×3 (06:09→22:57)
[2018-12-06] MEDS: Docusate CAP* 100 MG PO SCH ×2 (08:24→20:07)
[2018-12-06] MEDS: MEMANTINE 10 MG PO SCH ×2 (08:25→20:08)
[2018-12-06] MEDS: Polyethylene Glycol 3350* 17 GM PACKET PO SCH (08:25)
[2018-12-06] MEDS: MIRABEGRON 25 MG PO SCH (08:25)
[2018-12-06] MEDS: DONEPEZIL HCL 10 MG PO SCH ×2 (08:25→20:08)
[2018-12-06] MEDS: PTO:Polyethyl Glycol/Propylene Gly OPHTH.SOLN BOTH EYES SCH ×2 (08:27→20:11)
--- NOTE | 2018-12-06 12:57 | PMRUTEAM ---
PMRU: Team Meeting Current Status: Nursing: Current Status Skin Deviations [Upper Back] Rash Skin Deviations [Bilateral Eye Other ] Skin Deviations [Bilateral Other Buttocks] Skin Deviations [Right Hip] Incision Skin Deviation Description [ resolved Upper Back] Skin Deviation Description [ pink - better than last night Bilateral Eye] Skin Deviation Description [ pink, blanchable, lotion applied Bilateral Buttocks] Skin Deviation Description [ healing - SAP GATHERER. [place] intact. Right Hip] Bladder Current Status voids, also incontinent Bowel Current Status miralax and colace given. last bm 12/05/18 Nutrition Current Status appetite poor this am. needs to be fed Medication Current Status ultram for pain this am Physical Therapy: Current Status Bed Mobility Assistance Min Assist,2 or More Person Assist Transfer Mobility Assistance Contact Guard Assist,Min Assist,2 or More Person Assist Transfer/Bed Mobility Rolling Walker Recommended Devices Ambulation Assistance Contact Guard Assist,Min Assist,2 or More Person Assist Ambulation Assistive Devices Rolling Walker Number of Feet Patient 150' Ambulated Stairs Assistance Not Tested Stairs Recommended Devices Two Rails Number of Stairs 3 Curb Not Tested Occupational Therapy: Current Status Upper Body Dressing Max Asst,Total Assist Upper Body Dressing Progress assist for all aspects to don shirt and bra Lower Body Dressing Total Assist,2 Person Assist Lower Body Dressing Progress assist for all aspects, 2 assist Bathing Max Asst,2 Person Assist Bathing Progress able to wash UEs/chest with max v/c's, 2 assist Toileting Total Assist,2 Person Assist Toileting Progress assist for all aspects Toilet Transfer Min Assist,Mod Assist,Max Asst,2 Person Assist Toilet Transfer Progress min-maxA x 2 Shower Transfer Progress TBA Eating Min Assist,Mod Assist Eating Progress /staff assist with feeding Rec Therapy: Current Status Summary of Assessment and Recreation Therapy services introduced and Clinical Impression assessment is complete. Pt. has been involved in leisure visits and pet therapy in the afternoons. Treatment Goals Pt. will engage in leisure activities while on the unit. Treatment Plan Provide recreation therapy and encourage involvement. Social Work: Current Status Discharge Plan return home with home care svs and family support Potential for Family Training pt's is involved and attentive Anticipated Discharge Home Destination Discharge With home care svs and family support Nutrition: Current Status Monitoring PO has been generally consistently >80%; noted 30 % intake at B today. Independent at some meals; occ needs supervision/containers open/food cut. BG 111 12/02; no new labs to report. BM every 1-2 days noted; last BM 12/05. Making good progress with goals; no new interventions to suggest at this time. Will continue to follow. Speech: Current Status Assessment Patient is progressing slowly as expected. Given simple printed directions, patient read aloud with poor understanding of purpose. Given physical demonstration and prompting, and 5x repetions with cues faded and provided as needed, patient required maximal cueing to tell this film writer 4 simple steps to stand, and 3 steps to sit. STONE MILL OPERATOR consulted OT and PT about how they are providing directions. STONE MILL OPERATOR has provided evaluation anbd treatment sessions, and consulted OT/PT as per plan of care. Discharge Speech-Language treatment. Goals: Physical Therapy: Initial Goals Bed Mobility Assistance Independent Transfer Mobility Assistance Independent Transfer/Bed Mobility Rolling Walker Recommended Devices Ambulation Independent Ambulation Recommended Devices Rolling Walker Ambulation Distance 150 Stairs Assistance Independent Stair Recommended Devices Two Rails Number of Stairs 5 Physical Therapy: Updated Goals Transfer/Bed Mobility EZ Stand Recommended Devices Occupational Therapy: Initial Goals Goals to be Completed in (Days 3-4 weeks ) Upper Body Bathing Routine Minimal Contact Assist Lower Body Bathing Routine Moderate Assist Upper Body Dressing Routine Minimal Contact Assist,Moderate Assist Lower Body Dressing Routine Moderate Assist Toilet Hygeine and Clothing Minimal Contact Assist Management Routine Toilet Transfer Routine Minimal Contact Assist Step-In Shower Transfer Minimal Contact Assist Routine Functional Transfers for ADL Minimal Contact Assist Grooming Routine Supervision/Set Up Feeding Routine Supervision/Set Up Nursing: Goals Bladder Goal supervision Bowel Goal supervision Nutrition Goal 100% of all meals consumed. Medication Goal to administer meds Nutrition: Goals Intervention Goals 1. adequate intake to support stable wt, lean body mass, and hydration 2. maintain BG and serum electrolytes WNL 3. regulation of bowel pattern; no c/o constipation (or diarrhea) Speech: Goals Speech Goal 1 Language Comprehension Goal 1 Comments Language Comprehension Goals: Long-Term Goal: Pt will demonstrate comprehension of simple, one-part, concerte directions, 80% accuracy, given skilled instruction, Moderate cueing, and extra time. Status: Progressing slowly as expected. Discharge ST. Short-Term Goal: Pt will demonstrate comprehension of simple, one-part, concerte directions, 80% accuracy, given skilled instruction, Maximal cueing, and extra time. Status: Progressing slowly as expected. Patient followed 70% of directions given maximal directions Speech Goal 2 Problem Solving Speech Goal 2 Comments Problem Solving Goals: Long-Term Goal: Pt will solve simple routine problems, for transfer and mobility safety, adaptive dressing, time and money management; with 80% accuracy, given Moderate cueing. Status: Progressing slowly as expected. Discharge ST. Short-Term Goal: Pt will solve simple routine problems, for transfer and mobility safety, adaptive dressing, time and money management; with 80% accuracy, given skilled instruction, Maximum cueing, and extra time. Status: Progressing slowly as expected. Social Work: Goals Discharge Plan return home with home care svs and family support Potential for Family Training pt's is involved and attentive Anticipated Discharge Home Destination Discharge With home care svs and family support Care Plan: Care Plan ADL's - Improve/Maintain Start: 11/23/18 16:15 Freq: DAILY Status: Active Target: Protocol: Activity Type Activity Date Activity User E-Sign Co-Sign Detail Recorded Client Recorded Date Recorded By Document 12/05/18 10:52 [id number] [id number] 12/05/18 10:52 [id number] 12/05/18 10:52 PMRU Outcome: ADL's/ADL Transfers Orders/Interventions Occupational Therapy Evaluation & Treatment Communication Tool in Patient Room Device Yes Address Deficits Secondary To: fall s/p Right hip ad Patient to receive OT 5x/wk for 60-120 Therex min/day Self Care Management Group Therapy UE/LE ADL's with Assist Yes: modA ADL Transfers with Assist Yes: Britt Toileting: Transfers,Clothing Management Yes: Britt ,Hygeine w/Assist Light Kitchen/Laundry w/Assist No Outcome/Goals Met Pt participated fair in treatment session, continues to require significant assistance for completion of ADL routine. Communication-Improve/Maintain Start: 11/23/18 12:46 Freq: DAILY Status: Active Target: Protocol: Activity Type Activity Date Activity User E-Sign Co-Sign Detail Recorded Client Recorded Date Recorded By Document 12/06/18 00:00 [id number] [email or web address] 12/06/18 00:15 [id number] 12/06/18 00:00 PMRU Outcome: Communication/Cognitive Status Outcome/Goals Other Outcome/Goals Met Comment calls out for help or calls out for Demetrio DVT Prophylaxis- Improve/Maintain Start: 11/23/18 12:46 Freq: QSHIFT Status: Active Target: Protocol: Activity Type Activity Date Activity User E-Sign Co-Sign Detail Recorded Client Recorded Date Recorded By Document 12/06/18 09:04 [id number] 12/06/18 09:05 [id number] 12/06/18 09:04 PMRU Outcome: DVT Prophylaxis Outcome/Goals Remains Free of DVT Free of complications from current DVT TEDS Stockings on Every AM, Off at HS Progression Toward Outcome/Goals Progressing Discharge Planning - Improve/Maintain Start: 11/23/18 12:46 Freq: DAILY Status: Active Target: Protocol: Activity Type Activity Date Activity User E-Sign Co-Sign Detail Recorded Client Recorded Date Recorded By Document 12/06/18 00:15 [id number] [email or web address] 12/06/18 00:15 [email or web address] 12/06/18 00:15 PMRU Outcome: Discharge Planning Update Patient Family No Outcome/Goals Demonstrates Understanding of Discharge Plan Education-Improve/Maintain Start: 11/23/18 12:46 Freq: QSHIFT Status: Active Target: Protocol: Activity Type Activity Date Activity User E-Sign Co-Sign Detail Recorded Client Recorded Date Recorded By Document 12/06/18 09:04 [id number] [email or web address] 12/06/18 09:05 [id number] 12/06/18 09:04 PMRU Outcome: Education Outcome/Goals Demonstrates Skills Encourage Questions Progression Toward Outcome/Goals Progressing /GI-Improve/Maintain Start: 11/23/18 12:46 Freq: QSHIFT Status: Active Target: Protocol: Activity Type Activity Date Activity User E-Sign Co-Sign Detail Recorded Client Recorded Date Recorded By Document 12/06/18 09:04 [id number] 12/06/18 09:05 [id number] 12/06/18 09:04 PMRU Outcome: Genitourinary/ Gastrointestinal Genitourinary- Outcome/Goals Maintain/ Achieve Urinary Continence Maintain/ Achieve Adequate Urinary Output Gastrointestinal-Outcome/Goals Maintain/ Achieve Bowel Regularity in Accordance with Pt's Baseline Remain Free of Emesis Prevent Constipation Laxatives as Ordered Progression Toward Outcome/Goals - Progressing Progression Toward Outcome/Goals - GI Progressing Outcome/Goals Met Comment miralax and colace given Medication Administration Start: 11/23/18 12:46 Freq: QSHIFT Status: Active Target: Protocol: Activity Type Activity Date Activity User E-Sign Co-Sign Detail Recorded Client Recorded Date Recorded By Document 12/06/18 09:04 [id number] [email or web address] 12/06/18 09:05 [id number] 12/06/18 09:04 PMRU Outcome: Medication Administration Assess Patient Knowledge/Teach Med Yes Education for all Meds Outcome/Goals Family/ Caregiver Administer Medications at Home Demonstrates Understanding Progression Towards Outcome/Goals Progressing Is Patient Going Home on Lovenox? No Pain/Comfort- Improve/Maintain Start: 11/23/18 12:46 Freq: QSHIFT Status: Active Target: Protocol: Activity Type Activity Date Activity User E-Sign Co-Sign Detail Recorded Client Recorded Date Recorded By Document 12/06/18 09:04 [id number] [email or web address] 12/06/18 09:05 [id number] 12/06/18 09:04 PMRU Outcome: Pain/Comfort Outcome/Goals Achieves Acceptable Comfort/Pain Level as Determined by Patient/Condit Maintain Comfort Level Allowing Patient to Fully Participate in Rehab Progression Toward Outcome/Goals Progressing Outcome/Goals Met Comment increased pain this am. ultram given Safety- Improve/Maintain Start: 11/23/18 12:46 Freq: QSHIFT Status: Active Target: Protocol: Activity Type Activity Date Activity User E-Sign Co-Sign Detail Recorded Client Recorded Date Recorded By Document 12/06/18 09:04 [id number] [email or web address] 12/06/18 09:05 [id number] 12/06/18 09:04 PMRU Outcome: Safety Outcome/Goals Remain Free of Injury or Harm Prevent Falls/ Injury Progression Toward Outcome/Goals Progressing Outcome/Goals Met Comment PA on when in chair, BA on when in bed Skin- Improve/Maintain Start: 11/23/18 12:46 Freq: QSHIFT Status: Active Target: Protocol: Activity Type Activity Date Activity User E-Sign Co-Sign Detail Recorded Client Recorded Date Recorded By Document 12/06/18 09:04 [id number] [email or web address] 12/06/18 09:05 [id number] 12/06/18 09:04 PMRU Outcome: Skin Skin Risk Level High Skin Orders Turn/Position q2hr While in Bed Outcome/Goals Maintain/ Improve Skin Intergrity Surgical Incisions Healing Progression Toward Outcome/Goals Progressing Medicine Note: Length of Stay: 2 weeks Anticipated Discharge Destination: Home Tentative Discharge Date: 12/20/18 Discharged to: Home
--- NOTE | 2018-12-06 16:55 | PN ---
Progress Note Date of Service: 12/06/18 Note: JARRETT MUSTAFA was visited. Therapy notes read and reviewed. She was discussed in interdisciplinary team rounds. OT has expressed concerns about her ability to do ADLs at home, specifically toileting. I had a meeting with her and explained options for d/c. He would like to look into hiring extra help; also asked about feasibility of [facility] as an option. Current Medications: Active Medications Generic Name Dose Route Start Last Admin Trade Name Freq PRN Reason Stop Dose Admin Acetaminophen 650 mg 11/23/18 15:53 12/06/18 02:16 Tylenol Tab* PO 650 mg Q4H PRN Administration FEVER/PAIN Bisacodyl 10 mg 11/23/18 20:45 11/23/18 21:11 Dulcolax Supp* MD 10 mg DAILY PRN Administration CONSTIPATION Docusate Sodium 100 mg 11/23/18 21:00 12/06/18 08:24 Colace Cap* PO 100 mg BID ABILIO Administration Heparin Sodium (Porcine) 5,000 units 11/23/18 22:00 12/06/18 15:54 Heparin Vial(*) SUBCUT 5,000 units Q8HR ABILIO Administration Hydrocortisone 1 applic 12/02/18 09:11 Hytone Cream 1%* TOPICAL TID PRN itching rash Magnesium Hydroxide 30 ml 11/23/18 15:53 Milk Of Magnesia Liq* PO Q6H PRN CONSTIPATION Memantine 10 mg 11/23/18 21:00 12/06/18 08:25 Namenda Tab* PO 10 mg BID ABILIO Administration Mirabegron 25 mg 11/26/18 09:00 12/06/18 08:25 Myrbetriq (Nf) PO 25 mg DAILY ABILIO Administration Polyethyl Glycol/Propylene Glycol 1 drop 11/23/18 21:00 12/06/18 08:27 Lubricant Eye Drops BOTH EYES 1 drop BID ABILIO Administration Polyethylene Glycol/Electrolytes 17 gm 11/24/18 09:00 12/06/18 08:25 Miralax* PO 17 gm DAILY ABILIO Administration Senna 2 tab 11/23/18 15:53 11/25/18 21:25 Senokot Tab* PO 2 tab BEDTIME PRN Administration CONSTIPATION Tramadol HCl 50 mg 11/23/18 16:02 12/06/18 08:25 Ultram* PO 50 mg Q6H PRN Administration PAIN - MODERATE Vital Signs: Vital Signs Temp Pulse Resp BP Pulse Ox 98.3 F 79 18 126/63 100 12/06/18 05:35 12/06/18 05:35 12/06/18 12:00 12/06/18 05:35 12/06/18 05:35 Exam: GEN: no acute distress. alert and appropriate. poor memory and oriented to self. LUNGS: Clear to auscultation bilaterally HEART: regular rate and rhythm ABDOMEN: Soft, +bowel sounds, non-tender, non-distended EXTREMITIES: Right hip wound C/D/I with arian. NEUROLOGIC: Right hip and knee at least 4/5 due to pain. Rest of BLE at least 4 +/5 motor with normal sensation. She has difficulty following directions. Assessment/Plan: 1. Right Hip Fracture: WBAT. PT/OT. Follow up with Dr. Garland. Remove arian tomorrow 2. Cognitive Decline/Dementia: Aricept/Namenda 3. DVT Prophylaxis: Heparin S/Q 4. Advance Directives: Full Code. is Surrogate Decision maker 5. Bladder Spasms/OAB: Myrbetriq. 6. Rash on back: hydrocorisone cream tid prn. 7. Leukocytosis: Follow, with repeat CBC at end of week 12/06/18 16:56
[2018-12-07] MEDS: Acetaminophen TAB* 325 MG PO PRN ×3 (00:50→21:26)
[2018-12-07] MEDS: Heparin VIAL(*) 5000 UNITS/ML VIAL (FIVE THOUSAND) SUBCUT SCH ×3 (05:10→21:29)
[2018-12-07] MEDS: PTO:Polyethyl Glycol/Propylene Gly OPHTH.SOLN BOTH EYES SCH ×2 (07:45→21:27)
[2018-12-07] MEDS: Polyethylene Glycol 3350* 17 GM PACKET PO SCH (07:45)
[2018-12-07] MEDS: Docusate CAP* 100 MG PO SCH ×2 (07:45→21:26)
[2018-12-07] MEDS: DONEPEZIL HCL 10 MG PO SCH ×2 (07:45→21:27)
[2018-12-07] MEDS: MEMANTINE 10 MG PO SCH ×2 (07:45→21:27)
[2018-12-07] MEDS: MIRABEGRON 25 MG PO SCH (07:45)
[2018-12-07] MEDS: Hydrocortisone 1% CREAM* 30 GM TUBE TOPICAL PRN (10:40)
--- NOTE | 2018-12-07 19:43 | PN ---
Progress Note Date of Service: 12/07/18 Note: JARRETT MUSTAFA was visited. Therapy notes read and reviewed. Jarrett's arian were removed without difficulty and steri-strips applied. She has a lot of difficulty with transfers due to trouble with directions and planning Current Medications: Active Medications Generic Name Dose Route Start Last Admin Trade Name Freq PRN Reason Stop Dose Admin Acetaminophen 650 mg 11/23/18 15:53 12/07/18 05:15 Tylenol Tab* PO 650 mg Q4H PRN Administration FEVER/PAIN Bisacodyl 10 mg 11/23/18 20:45 11/23/18 21:11 Dulcolax Supp* [place] 10 mg DAILY PRN Administration CONSTIPATION Docusate Sodium 100 mg 11/23/18 21:00 12/07/18 07:45 Colace Cap* PO 100 mg BID ABILIO Administration Heparin Sodium (Porcine) 5,000 units 11/23/18 22:00 12/07/18 14:34 Heparin Vial(*) SUBCUT 5,000 units Q8HR ABILIO Administration Hydrocortisone 1 applic 12/02/18 09:11 12/07/18 10:40 Hytone Cream 1%* TOPICAL 1 applic TID PRN Administration itching rash Magnesium Hydroxide 30 ml 11/23/18 15:53 Milk Of Magnesia Liq* PO Q6H PRN CONSTIPATION Memantine 10 mg 11/23/18 21:00 12/07/18 07:45 Namenda Tab* PO 10 mg BID ABILIO Administration Mirabegron 25 mg 11/26/18 09:00 12/07/18 07:45 Myrbetriq (Nf) PO 25 mg DAILY ABILIO Administration Polyethyl Glycol/Propylene Glycol 1 drop 11/23/18 21:00 12/07/18 07:45 Lubricant Eye Drops BOTH EYES 1 drop BID ABILIO Administration Polyethylene Glycol/Electrolytes 17 gm 11/24/18 09:00 12/07/18 07:45 Miralax* PO 17 gm DAILY ABILIO Administration Senna 2 tab 11/23/18 15:53 11/25/18 21:25 Senokot Tab* PO 2 tab BEDTIME PRN Administration CONSTIPATION Tramadol HCl 50 mg 12/07/18 13:20 Ultram* PO Q6H PRN PAIN - MODERATE Vital Signs: Vital Signs Temp Pulse Resp BP Pulse Ox 97.7 F 82 18 135/66 100 12/07/18 16:08 12/07/18 16:08 12/07/18 16:08 12/07/18 16:08 12/07/18 18:26 Exam: GEN: no acute distress. alert and appropriate. poor memory and oriented to self. LUNGS: Clear to auscultation bilaterally HEART: regular rate and rhythm ABDOMEN: Soft, +bowel sounds, non-tender, non-distended EXTREMITIES: Right hip wound C/D/I with arian. NEUROLOGIC: Right hip and knee at least 4/5 due to pain. Rest of BLE at least 4 +/5 motor with normal sensation. She has difficulty following directions. Assessment/Plan: 1. Right Hip Fracture: WBAT. PT/OT. Follow up with Dr. Garland. Remove arian tomorrow 2. Cognitive Decline/Dementia: Aricept/Namenda 3. DVT Prophylaxis: Heparin S/Q 4. Advance Directives: Full Code. is Surrogate Decision maker 5. Bladder Spasms/OAB: Myrbetriq. 6. Rash on back: hydrocortisone cream tid prn. 7. Leukocytosis: Follow, with repeat CBC at end of week 12/07/18 19:43
[2018-12-08] MEDS: Acetaminophen TAB* 325 MG PO PRN ×2 (01:44→19:20)
[2018-12-08] MEDS: Heparin VIAL(*) 5000 UNITS/ML VIAL (FIVE THOUSAND) SUBCUT SCH ×3 (05:51→21:27)
[2018-12-08] MEDS: MIRABEGRON 25 MG PO SCH (09:07)
[2018-12-08] MEDS: MEMANTINE 10 MG PO SCH ×2 (09:07→20:11)
[2018-12-08] MEDS: DONEPEZIL HCL 10 MG PO SCH ×2 (09:08→20:11)
[2018-12-08] MEDS: traMADol TAB* 50 MG PO PRN (09:08)
[2018-12-08] MEDS: Docusate CAP* 100 MG PO SCH ×2 (09:08→19:19)
[2018-12-08] MEDS: PTO:Polyethyl Glycol/Propylene Gly OPHTH.SOLN BOTH EYES SCH ×2 (09:10→20:14)
[2018-12-08] MEDS: Polyethylene Glycol 3350* 17 GM PACKET PO SCH (09:17)
[2018-12-08 15:54] LABS: Urine Appearance Cloudy; Urine Bacteria Absent (Absent); Urine Bilirubin Negative (Negative); Urine Blood 2+ (Negative); Urine Color Yellow; Urine Glucose Negative (Negative); Urine Ketones Negative (Negative); Urine Nitrite Negative (Negative); Urine Protein Negative (Negative); Urine Red Blood Cell 3+(>10/hpf) (Absent); Urine Specific Gravity 1.024 (1.010-1.030); Urine Squamous Epithelial Cell Present (Absent); Urine Urobilinogen Negative (Negative); Urine White Blood Cell 3+(>20/hpf) (Absent)
--- NOTE | 2018-12-08 17:29 | PN ---
Progress Note Date of Service: 12/08/18 Note: JARRETT MUSTAFA was visited. Therapy notes read and reviewed. Observed her ambulating. She tends to drift to the right. No other complaints. Current Medications: Active Medications Generic Name Dose Route Start Last Admin Trade Name Freq PRN Reason Stop Dose Admin Acetaminophen 650 mg 11/23/18 15:53 12/08/18 01:44 Tylenol Tab* PO 650 mg Q4H PRN Administration FEVER/PAIN Bisacodyl 10 mg 11/23/18 20:45 11/23/18 21:11 Dulcolax Supp* [place] 10 mg DAILY PRN Administration CONSTIPATION Docusate Sodium 100 mg 11/23/18 21:00 12/08/18 09:08 Colace Cap* PO 100 mg BID ABILIO Administration Heparin Sodium (Porcine) 5,000 units 11/23/18 22:00 12/08/18 14:19 Heparin Vial(*) SUBCUT 5,000 units Q8HR ABILIO Administration Hydrocortisone 1 applic 12/02/18 09:11 12/07/18 10:40 Hytone Cream 1%* TOPICAL 1 applic TID PRN Administration itching rash Magnesium Hydroxide 30 ml 11/23/18 15:53 Milk Of Magnesia Liq* PO Q6H PRN CONSTIPATION Memantine 10 mg 11/23/18 21:00 12/08/18 09:07 Namenda Tab* PO 10 mg BID ABILIO Administration Mirabegron 25 mg 11/26/18 09:00 12/08/18 09:07 Myrbetriq (Nf) PO 25 mg DAILY ABILIO Administration Polyethyl Glycol/Propylene Glycol 1 drop 11/23/18 21:00 12/08/18 09:10 Lubricant Eye Drops BOTH EYES Not Given BID ABILIO Polyethylene Glycol/Electrolytes 17 gm 11/24/18 09:00 12/08/18 09:17 Miralax* PO 17 gm DAILY ABILIO Administration Senna 2 tab 11/23/18 15:53 11/25/18 21:25 Senokot Tab* PO 2 tab BEDTIME PRN Administration CONSTIPATION Tramadol HCl 50 mg 12/07/18 13:20 12/08/18 09:08 Ultram* PO 50 mg Q6H PRN Administration PAIN - MODERATE Vital Signs: Vital Signs Temp Pulse Resp BP Pulse Ox 98.2 F 85 20 119/54 99 12/08/18 15:46 12/08/18 15:46 12/08/18 15:46 12/08/18 15:46 12/08/18 15:46 Lab Results: Laboratory Results - last 24 hr 12/08/18 15:20 Urine Color Yellow Urine Appearance Cloudy Urine pH 5.0 Ur Specific [place] 1.024 Urine Protein Negative Urine Ketones Negative Urine Blood 2+ A Urine Nitrate Negative Urine Bilirubin Negative Urine Urobilinogen Negative Ur Leukocyte Esterase 3+ A Urine WBC (Auto) 3+(>20/hpf) A Urine RBC (Auto) 3+(>10/hpf) A Ur Squamous Epith Cells Present A Urine Bacteria Absent Urine Glucose Negative Exam: GEN: no acute distress. alert and appropriate. poor memory and oriented to self. LUNGS: Clear to auscultation bilaterally HEART: regular rate and rhythm ABDOMEN: Soft, +bowel sounds, non-tender, non-distended EXTREMITIES: Right hip wound healed with steri-strips. NEUROLOGIC: Right hip and knee at least 4/5 due to pain. Rest of BLE at least 4 +/5 motor with normal sensation. She has difficulty following directions. Assessment/Plan: 1. Right Hip Fracture: WBAT. PT/OT. Follow up with Dr. Garland. Lily out 2. Cognitive Decline/Dementia: Aricept/Namenda 3. DVT Prophylaxis: Heparin S/Q 4. Advance Directives: Full Code. is Surrogate Decision maker 5. Bladder Spasms/OAB: Myrbetriq. 6. Rash on back: hydrocortisone cream tid prn. 7. Leukocytosis: Follow, with repeat CBC tomorrow 12/08/18 17:30
[2018-12-08] MEDS: Sulfamethox/Trimethoprim DS 800/160* TAB PO SCH (21:24)
[2018-12-09] MEDS: traMADol TAB* 50 MG PO PRN ×2 (01:43→08:32)
[2018-12-09] MEDS: Acetaminophen TAB* 325 MG PO PRN ×4 (02:58→23:34)
[2018-12-09] MEDS: Heparin VIAL(*) 5000 UNITS/ML VIAL (FIVE THOUSAND) SUBCUT SCH ×3 (06:34→21:50)
[2018-12-09 07:25] LABS: Hematocrit 31 % (35-47); Hemoglobin 10.2 g/dL (12.0-16.0); Mean Corpuscular HGB Conc 33 g/dL (31-36); Mean Corpuscular Hemoglobin 32 pg (27-31); Mean Corpuscular Volume 96 fL (80-97); Platelet Count 511 10^3/uL (150-450); Red Blood Count 3.18 10^6 /uL (3.70-4.87); Red Cell Distribution Width 14 % (10-15); White Blood Count 16.6 10^3/uL (3.5-10.8)
[2018-12-09 07:32] LABS: ABS Basophils 0.2 10^3/ul (0-0.2); ABS Eosinophils 0.2 10^3/ul (0-0.6); ABS Lymphocytes 2.4 10^3/ul (1.0-4.8); ABS Monocytes 1.9 10^3/ul (0-0.8); ABS Neutrophils 11.8 10^3/ul (1.5-7.7); Eosinophil % 1.3 %; Lymphocyte % 14.6 %
[2018-12-09 07:36] LABS: Albumin 3.5 g/dL (3.2-5.2); Albumin/Globulin Ratio 1.2 (1-3); BUN/Creatinine Ratio 30.3 (8-20); Calcium 9.4 mg/dL (8.6-10.3); EGFR African American 88.6 (>60); EGFR Non-African American 73.2 (>60); Globulin 2.9 g/dL (2-4); Potassium 4.4 mmol/L (3.5-5.0); Total Bilirubin 0.4 mg/dL (0.2-1.0); Total Protein 6.4 g/dL (6.4-8.9)
[2018-12-09] MEDS: MEMANTINE 10 MG PO SCH ×2 (08:32→20:55)
[2018-12-09] MEDS: Docusate CAP* 100 MG PO SCH ×2 (08:32→21:01)
[2018-12-09] MEDS: Sulfamethox/Trimethoprim DS 800/160* TAB PO SCH ×2 (08:32→20:55)
[2018-12-09] MEDS: Polyethylene Glycol 3350* 17 GM PACKET PO SCH (08:32)
[2018-12-09] MEDS: MIRABEGRON 25 MG PO SCH (08:32)
[2018-12-09] MEDS: PTO:Polyethyl Glycol/Propylene Gly OPHTH.SOLN BOTH EYES SCH ×2 (08:32→21:00)
[2018-12-09] MEDS: DONEPEZIL HCL 10 MG PO SCH ×2 (08:32→20:55)
[2018-12-09 08:56] LABS: Erythrocyte Sed Rate 60 mm/Hr (0-29)
--- NOTE | 2018-12-09 10:30 | PN ---
Progress Note Date of Service: 12/09/18 Note: JARRETT MUSTAFA was visited. Nursing and therapy notes read and reviewed. Complained of back pain yesterday and last night. OT says was around left buttock and groin. Pt reports sometimes sharp and sometimes burning. No chest pain, shortness of breath or abdominal pain. Per staff is concerned about use of bactrim with myrbetriq and also concerned myrbetriq may contribute to rash. Current Medications: Active Medications Generic Name Dose Route Start Last Admin Trade Name Freq PRN Reason Stop Dose Admin Acetaminophen 650 mg 11/23/18 15:53 12/09/18 06:40 Tylenol Tab* PO 650 mg Q4H PRN Administration FEVER/PAIN Bisacodyl 10 mg 11/23/18 20:45 11/23/18 21:11 Dulcolax Supp* [place] 10 mg DAILY PRN Administration CONSTIPATION Docusate Sodium 100 mg 11/23/18 21:00 12/09/18 08:32 Colace Cap* PO 100 mg BID ABILIO Administration Heparin Sodium (Porcine) 5,000 units 11/23/18 22:00 12/09/18 06:34 Heparin Vial(*) SUBCUT 5,000 units Q8HR ABILIO Administration Hydrocortisone 1 applic 12/02/18 09:11 12/07/18 10:40 Hytone Cream 1%* TOPICAL 1 applic TID PRN Administration itching rash Magnesium Hydroxide 30 ml 11/23/18 15:53 Milk Of Magnesia Liq* PO Q6H PRN CONSTIPATION Memantine 10 mg 11/23/18 21:00 12/09/18 08:32 Namenda Tab* PO 10 mg BID ABILIO Administration Mirabegron 25 mg 11/26/18 09:00 12/09/18 08:32 Myrbetriq (Nf) PO 25 mg DAILY ABILIO Administration Polyethyl Glycol/Propylene Glycol 1 drop 11/23/18 21:00 12/09/18 08:32 Lubricant Eye Drops BOTH EYES 1 drop BID ABILIO Administration Polyethylene Glycol/Electrolytes 17 gm 11/24/18 09:00 12/09/18 08:32 Miralax* PO 17 gm DAILY ABILIO Administration Senna 2 tab 11/23/18 15:53 11/25/18 21:25 Senokot Tab* PO 2 tab BEDTIME PRN Administration CONSTIPATION Tramadol HCl 50 mg 12/07/18 13:20 12/09/18 08:32 Ultram* PO 50 mg Q6H PRN Administration PAIN - MODERATE Trimethoprim/Sulfamethoxazole 1 tab 12/08/18 21:00 12/09/18 08:32 Bactrim Ds 800/160 Tab* PO 12/11/18 23:59 1 tab BID ABILIO Administration Vital Signs: Vital Signs Temp Pulse Resp BP Pulse Ox 97.9 F 76 0 134/59 95 12/09/18 05:04 12/09/18 05:04 12/09/18 08:32 12/09/18 05:04 12/09/18 05:04 Lab Results: Laboratory Results - last 24 hr 12/08/18 12/09/18 12/09/18 15:20 06:58 06:59 WBC 16.6 H RBC 3.18 L Hgb 10.2 L Hct 31 L MCV 96 MCH 32 H MCHC 33 RDW 14 Plt Count 511 H D MPV 7.0 L Neut % (Auto) 71.5 Lymph % (Auto) 14.6 [place] % (Auto) 11.6 Eos % (Auto) 1.3 Baso % (Auto) 1.0 Absolute Neuts (auto) 11.8 H Absolute Lymphs (auto) 2.4 Absolute Monos (auto) 1.9 H Absolute Eos (auto) 0.2 Absolute Basos (auto) 0.2 Absolute Nucleated RBC 0.0 Nucleated RBC % 0.0 ESR 60 H Sodium 136 Potassium 4.4 Chloride 104 Carbon Dioxide 27 Anion Gap 5 BUN 23 Creatinine 0.76 Est GFR ( Amer) 88.6 Est GFR (Non-Af Amer) 73.2 BUN/Creatinine Ratio 30.3 H Glucose 115 H Calcium 9.4 Total Bilirubin 0.40 AST 15 ALT 15 Alkaline Phosphatase 79 Total Protein 6.4 Albumin 3.5 Globulin 2.9 Albumin/Globulin Ratio 1.2 Urine Color Yellow Urine Appearance Cloudy Urine pH 5.0 Ur Specific [place] 1.024 Urine Protein Negative Urine Ketones Negative Urine Blood 2+ A Urine Nitrate Negative Urine Bilirubin Negative Urine Urobilinogen Negative Ur Leukocyte Esterase 3+ A Urine WBC (Auto) 3+(>20/hpf) A Urine RBC (Auto) 3+(>10/hpf) A Ur Squamous Epith Cells Present A Urine Bacteria Absent Urine Glucose Negative Exam: GEN: no acute distress. alert and appropriate. poor memory and oriented to self. LUNGS: Clear to auscultation bilaterally HEART: regular rate and rhythm ABDOMEN: Soft, +bowel sounds, non-tender, non-distended EXTREMITIES: no edema. No pain to palpation around left gluteals, and hip flexors. No pain with left hip ROM. SPINE: No tenderness to palpation centrally or in paraspinals. NEUROLOGIC: Right hip and knee at least 4/5 due to pain. Rest of BLE at least 4 +/5 motor with normal sensation. She has difficulty following directions. Negative sitting SLR. Assessment/Plan: 1. Right Hip Fracture: WBAT. PT/OT. Follow up with Dr. Garland. [place] out 2. Cognitive Decline/Dementia: Aricept/Namenda 3. DVT Prophylaxis: Heparin S/Q 4. Advance Directives: Full Code. is Surrogate Decision maker 5. Bladder Spasms/OAB: Myrbetriq was a recent addition medication. OK to stop for now while treat potential UTI and see if skin clears up although rash is not listed on epocrates as a common reaction. 6. Rash on back: hydrocortisone cream tid prn. hold myrbetriq for now. 7. Leukocytosis: CBC better, but still elevated. f/u with PCP and hematology after discharge. 8. Question UTI: Prior urine culture a week ago was negative. Urine from yesterday may also be contaminated given squamous cells in urine. f/u urine culture. On bactim day #2. 12/09/18 10:35
[2018-12-10] MEDS: Acetaminophen TAB* 325 MG PO PRN ×2 (04:38→20:46)
[2018-12-10] MEDS: Heparin VIAL(*) 5000 UNITS/ML VIAL (FIVE THOUSAND) SUBCUT SCH ×3 (04:38→22:07)
[2018-12-10] MEDS: Sulfamethox/Trimethoprim DS 800/160* TAB PO SCH (09:23)
--- NOTE | 2018-12-10 09:28 | PN ---
Progress Note Date of Service: 12/10/18 Note: JARRETT MUSTAFA was visited. Nursing and therapy notes read and reviewed. No chest pain or shortness or breath. thinks the left hip area pain is more abdominal and started after she started antibiotics. We discussed myrbetriq , which is a newer medication and he did not know if it was helping her yet. At home they did timed voids at night. He would wake her up to urinate when he had to go. + BM yesterday. Incontinent of urine x2 last night. Current Medications: Active Medications Generic Name Dose Route Start Last Admin Trade Name Freq PRN Reason Stop Dose Admin Acetaminophen 650 mg 11/23/18 15:53 12/10/18 04:38 Tylenol Tab* PO 650 mg Q4H PRN Administration FEVER/PAIN Bisacodyl 10 mg 11/23/18 20:45 11/23/18 21:11 Dulcolax Supp* [place] 10 mg DAILY PRN Administration CONSTIPATION Docusate Sodium 100 mg 11/23/18 21:00 12/09/18 21:01 Colace Cap* PO Not Given BID ABILIO Donepezil HCl 10 mg 11/23/18 21:00 12/09/18 20:55 Aricept (Nf) PO 10 mg BID ABILIO Administration Heparin Sodium (Porcine) 5,000 units 11/23/18 22:00 12/10/18 04:38 Heparin Vial(*) SUBCUT 5,000 units Q8HR ABILIO Administration Hydrocortisone 1 applic 12/02/18 09:11 12/07/18 10:40 Hytone Cream 1%* TOPICAL 1 applic TID PRN Administration itching rash Magnesium Hydroxide 30 ml 11/23/18 15:53 Milk Of Magnesia Liq* PO Q6H PRN CONSTIPATION Memantine 10 mg 11/23/18 21:00 12/09/18 20:55 Namenda Tab* PO 10 mg BID ABILIO Administration Polyethyl Glycol/Propylene Glycol 1 drop 11/23/18 21:00 12/09/18 21:00 Lubricant Eye Drops BOTH EYES 1 drop BID ABILIO Administration Polyethylene Glycol/Electrolytes 17 gm 11/24/18 09:00 12/09/18 08:32 Miralax* PO 17 gm DAILY ABILIO Administration Senna 2 tab 11/23/18 15:53 11/25/18 21:25 Senokot Tab* PO 2 tab BEDTIME PRN Administration CONSTIPATION Tramadol HCl 50 mg 12/07/18 13:20 12/09/18 08:32 Ultram* PO 50 mg Q6H PRN Administration PAIN - MODERATE Trimethoprim/Sulfamethoxazole 1 tab 12/08/18 21:00 12/09/18 20:55 Bactrim Ds 800/160 Tab* PO 12/11/18 23:59 1 tab BID ABILIO Administration Vital Signs: Vital Signs Temp Pulse Resp BP Pulse Ox 98.2 F 83 18 129/58 97 12/10/18 04:53 12/10/18 04:53 12/10/18 04:53 12/10/18 04:53 12/10/18 04:53 Lab Results: Urine culture from 12/08/18 no significant growth. Exam: GEN: no acute distress. alert and appropriate. poor memory and oriented to self. LUNGS: Clear to auscultation bilaterally HEART: regular rate and rhythm ABDOMEN: Soft, +bowel sounds, non-distended. Inconsistently uncomfortable in suprapubic area. EXTREMITIES: no edema. No pain to palpation around left gluteals, and hip flexors. No pain with left hip ROM. SKIN: papular rash less than last week. NEUROLOGIC: Right hip and knee at least 4/5 due to pain. Rest of BLE at least 4 +/5 motor with normal sensation. She has difficulty following directions. Negative sitting SLR. Assessment/Plan: 1. Right Hip Fracture: WBAT. PT/OT. Follow up with Dr. Garland. [place] out 2. Cognitive Decline/Dementia: Aricept/Namenda 3. DVT Prophylaxis: Heparin S/Q 4. Advance Directives: Full Code. is Surrogate Decision maker 5. Bladder Spasms/OAB/Lower abdominal discomfort: Urine culture was negative so d/c Bactim (received 2 days). Question consitipation and bladder overfilling. Myrbetriq was a recent addition medication. I d/w and nursing trying to get post void residuals. This may be challenging given her incontinene and memory issues. Times voids. 6. Rash on back: hydrocortisone cream tid prn. hold myrbetriq for now. 7. Leukocytosis: CBC better, but still elevated. f/u with PCP and hematology after discharge. 12/10/18 09:25
[2018-12-10] MEDS: PTO:Polyethyl Glycol/Propylene Gly OPHTH.SOLN BOTH EYES SCH ×2 (09:29→20:46)
[2018-12-10] MEDS: Polyethylene Glycol 3350* 17 GM PACKET PO SCH (09:29)
[2018-12-10] MEDS: Docusate CAP* 100 MG PO SCH ×2 (09:29→20:45)
[2018-12-10] MEDS: MEMANTINE 10 MG PO SCH ×2 (09:29→20:46)
[2018-12-10] MEDS: DONEPEZIL HCL 10 MG PO SCH ×2 (09:29→20:45)
[2018-12-11] MEDS: Acetaminophen TAB* 325 MG PO PRN (01:16)
[2018-12-11] MEDS: Heparin VIAL(*) 5000 UNITS/ML VIAL (FIVE THOUSAND) SUBCUT SCH ×3 (05:58→22:27)
[2018-12-11] MEDS: MEMANTINE 10 MG PO SCH ×2 (09:02→19:52)
[2018-12-11] MEDS: PTO:Polyethyl Glycol/Propylene Gly OPHTH.SOLN BOTH EYES SCH ×2 (09:02→19:52)
[2018-12-11] MEDS: Docusate CAP* 100 MG PO SCH ×2 (09:02→19:52)
[2018-12-11] MEDS: Polyethylene Glycol 3350* 17 GM PACKET PO SCH (09:03)
--- NOTE | 2018-12-11 09:55 | PN ---
Progress Note Date of Service: 12/11/18 Note: KRISTEN MUSTAFA was visited. Nursing notes read and reviewed. No chest pain, shortness of breath or abdominal pain. Today she says sometimes she has pain in her left leg, but not now. PVRs were 68, 100, and 0. Staff has been doing timed voids including waking her once at night per 's request. She had 1 incontinence last night. Her requested to speak with me alone. Current Medications: Active Medications Generic Name Dose Route Start Last Admin Trade Name Freq PRN Reason Stop Dose Admin Acetaminophen 650 mg 11/23/18 15:53 12/11/18 01:16 Tylenol Tab* PO 650 mg Q4H PRN Administration FEVER/PAIN Bisacodyl 10 mg 11/23/18 20:45 11/23/18 21:11 Dulcolax Supp* [place] 10 mg DAILY PRN Administration CONSTIPATION Docusate Sodium 100 mg 11/23/18 21:00 12/11/18 09:02 Colace Cap* PO 100 mg BID ABILIO Administration Donepezil HCl 10 mg 11/23/18 21:00 12/10/18 20:45 Aricept (Nf) PO 10 mg BID ABILIO Administration Heparin Sodium (Porcine) 5,000 units 11/23/18 22:00 12/11/18 05:58 Heparin Vial(*) SUBCUT 5,000 units Q8HR ABILIO Administration Hydrocortisone 1 applic 12/02/18 09:11 12/07/18 10:40 Hytone Cream 1%* TOPICAL 1 applic TID PRN Administration itching rash Magnesium Hydroxide 30 ml 11/23/18 15:53 Milk Of Magnesia Liq* PO Q6H PRN CONSTIPATION Memantine 10 mg 11/23/18 21:00 12/11/18 09:02 Namenda Tab* PO 10 mg BID ABILIO Administration Polyethyl Glycol/Propylene Glycol 1 drop 11/23/18 21:00 12/11/18 09:02 Lubricant Eye Drops BOTH EYES 1 drop BID ABILIO Administration Polyethylene Glycol/Electrolytes 17 gm 11/24/18 09:00 12/11/18 09:03 Miralax* PO 17 gm DAILY ABILIO Administration Senna 2 tab 11/23/18 15:53 11/25/18 21:25 Senokot Tab* PO 2 tab BEDTIME PRN Administration CONSTIPATION Tramadol HCl 50 mg 12/07/18 13:20 12/09/18 08:32 Ultram* PO 50 mg Q6H PRN Administration PAIN - MODERATE Vital Signs: Vital Signs Temp Pulse Resp BP Pulse Ox 97.2 F 74 18 136/58 98 12/11/18 05:41 12/11/18 05:41 12/11/18 08:00 12/11/18 05:41 12/11/18 08:00 Exam: GEN: no acute distress. alert and appropriate. poor memory and oriented to self. LUNGS: Clear to auscultation bilaterally HEART: regular rate and rhythm ABDOMEN: Soft, +bowel sounds, non-distended, non-tender EXTREMITIES: no edema. No pain to palpation around left gluteals, hip flexors and leg. No pain with left hip ROM. SKIN: papular rash less than last week. NEUROLOGIC: Right hip and knee at least 4/5 due to pain. Rest of BLE at least 4 +/5 motor with normal sensation. She has difficulty following directions. Negative sitting SLR. Assessment/Plan: 1. Right Hip Fracture: WBAT. PT/OT. Follow up with Dr. Garland. [place] out 2. Cognitive Decline/Dementia: Aricept/Namenda 3. DVT Prophylaxis: Heparin S/Q 4. Advance Directives: Full Code. is Surrogate Decision maker 5. Bladder Spasms/OAB/Lower abdominal discomfort: Urine culture was negative and d/c'd Bactim (received 2 days). Question constipation and bladder overfilling. Not complaining about abdominal discomfort now, but had BM yesterday and Myrbetriq was d/c'd. Timed voids helpful in keeping dry and PVRs are normal x3. and I discussed keeping her off myrbetriq a few days to see if it affects her performance in therapy also (i.e. contributes to her cognition issues). 6. Rash on back: hydrocortisone cream tid prn. hold myrbetriq for now. 7. Leukocytosis: CBC better, but still elevated. f/u with PCP and hematology after discharge. 8. Dispo: Demetrio expressed his desire to have Kristen stay on [facility] additional time prior to d/c home as he does not think she will be ready by 12/20. This is his first preference. His second preference sounds like subacute rehab, but he is concerned about the patient to staff ratio after visiting a facility yesterday. He wondered if he could hire an additional WARRANTY MANAGER just for Kristen. He is scheduled to do some family training this week. I advised we meet again on Wednesday to discuss discharge plans and would make the team aware of his request for extended time, but also advised unless she is much improved Wednesday/Wednesday that is unlikely to occur. 12/11/18 09:47
[2018-12-11] MEDS: DONEPEZIL HCL 10 MG PO SCH ×3 (10:38→19:48)
[2018-12-12] MEDS: Heparin VIAL(*) 5000 UNITS/ML VIAL (FIVE THOUSAND) SUBCUT SCH ×3 (06:17→21:26)
[2018-12-12] MEDS: Docusate CAP* 100 MG PO SCH ×2 (08:44→20:42)
--- NOTE | 2018-12-12 08:44 | PN ---
Progress Note Date of Service: 12/12/18 Note: JARRETT MUSTAFA was visited. Nursing notes read and reviewed. Was restless last night. Since she was awake staff toileted her Q2h, but she was sometimes dry and sometimes incontinent. She denies any pain. No chest pain, shortness of breath or abdominal pain. Current Medications: Active Medications Generic Name Dose Route Start Last Admin Trade Name Freq PRN Reason Stop Dose Admin Acetaminophen 650 mg 11/23/18 15:53 12/11/18 01:16 Tylenol Tab* PO 650 mg Q4H PRN Administration FEVER/PAIN Bisacodyl 10 mg 11/23/18 20:45 11/23/18 21:11 Dulcolax Supp* [place] 10 mg DAILY PRN Administration CONSTIPATION Docusate Sodium 100 mg 11/23/18 21:00 12/11/18 19:52 Colace Cap* PO 100 mg BID ABILIO Administration Donepezil HCl 10 mg 11/23/18 21:00 12/11/18 19:48 Aricept (Nf) PO 10 mg BID ABILIO Administration Heparin Sodium (Porcine) 5,000 units 11/23/18 22:00 12/12/18 06:17 Heparin Vial(*) SUBCUT 5,000 units Q8HR ABILIO Administration Hydrocortisone 1 applic 12/02/18 09:11 12/07/18 10:40 Hytone Cream 1%* TOPICAL 1 applic TID PRN Administration itching rash Magnesium Hydroxide 30 ml 11/23/18 15:53 Milk Of Magnesia Liq* PO Q6H PRN CONSTIPATION Memantine 10 mg 11/23/18 21:00 12/11/18 19:52 Namenda Tab* PO 10 mg BID ABILIO Administration Polyethyl Glycol/Propylene Glycol 1 drop 11/23/18 21:00 12/11/18 19:52 Lubricant Eye Drops BOTH EYES 1 drop BID ABILIO Administration Polyethylene Glycol/Electrolytes 17 gm 11/24/18 09:00 12/11/18 09:03 Miralax* PO 17 gm DAILY ABILIO Administration Senna 2 tab 11/23/18 15:53 11/25/18 21:25 Senokot Tab* PO 2 tab BEDTIME PRN Administration CONSTIPATION Tramadol HCl 50 mg 12/07/18 13:20 12/09/18 08:32 Ultram* PO 50 mg Q6H PRN Administration PAIN - MODERATE Vital Signs: Vital Signs Temp Pulse Resp BP Pulse Ox 98.2 F 78 18 140/70 98 12/12/18 06:50 12/12/18 06:50 12/12/18 06:50 12/12/18 06:50 12/12/18 06:50 Exam: GEN: no acute distress. alert and appropriate. poor memory and oriented to self. LUNGS: Clear to auscultation bilaterally HEART: regular rate and rhythm ABDOMEN: Soft, +bowel sounds, non-distended, non-tender EXTREMITIES: no edema. No pain to palpation around left gluteals, hip flexors and leg. No pain with left hip ROM. SKIN: papular rash stable NEUROLOGIC: BLE at least 4+/5 motor with normal sensation. She has difficulty following directions. Negative sitting SLR. Assessment/Plan: 1. Right Hip Fracture: WBAT. PT/OT. Follow up with Dr. Garland. [place] out 2. Cognitive Decline/Dementia: Aricept/Namenda. Seems worse on days after she did not sleep well. 3. DVT Prophylaxis: Heparin S/Q 4. Advance Directives: Full Code. is Surrogate Decision maker 5. Bladder Spasms/OAB/Lower abdominal discomfort: Urine culture was negative and d/c'd Bactim (received 2 days). Questioned constipation and bladder overfilling. Had BM and next day no pain. Myrbetriq was d/c'd also at least temporarily. Timed voids helpful at least during day in keeping dry and PVRs are normal x3. and I discussed keeping her off myrbetriq a few days to see if it affects her performance in therapy also (i.e. contributes to her cognition issues). 6. Rash on back: hydrocortisone cream tid prn. holding myrbetriq for now. 7. Leukocytosis: CBC better, but still elevated. f/u with PCP and hematology after discharge. 8. Dispo: Wednesday Demetrio expressed his desire to have Jarrett stay on [facility] additional time prior to d/c home as he does not think she will be ready by 12/20. This is his first preference. His second preference sounds like subacute rehab, but he is concerned about the patient to staff ratio after visiting a facility. He wondered if he could hire an additional HIGH LIFT DRIVER just for Jarrett at subacute. He is scheduled to do some family training this week. I advised we meet again on Wednesday to discuss discharge plans and would make the team aware of his request for extended time, but also advised unless she is much improved Wednesday/Wednesday that is unlikely to occur. 12/12/18 08:35
[2018-12-12] MEDS: MEMANTINE 10 MG PO SCH ×2 (08:45→19:57)
[2018-12-12] MEDS: DONEPEZIL HCL 10 MG PO SCH ×2 (08:45→19:57)
[2018-12-12] MEDS: PTO:Polyethyl Glycol/Propylene Gly OPHTH.SOLN BOTH EYES SCH ×2 (08:46→20:14)
[2018-12-12] MEDS: Acetaminophen TAB* 325 MG PO PRN ×2 (08:46→19:58)
[2018-12-12] MEDS: Polyethylene Glycol 3350* 17 GM PACKET PO SCH (08:46)
[2018-12-13] MEDS: Heparin VIAL(*) 5000 UNITS/ML VIAL (FIVE THOUSAND) SUBCUT SCH ×3 (05:50→20:54)
[2018-12-13] MEDS: Docusate CAP* 100 MG PO SCH ×2 (09:52→19:48)
[2018-12-13] MEDS: DONEPEZIL HCL 10 MG PO SCH ×2 (09:53→19:46)
[2018-12-13] MEDS: MEMANTINE 10 MG PO SCH ×2 (09:53→19:46)
[2018-12-13] MEDS: Polyethylene Glycol 3350* 17 GM PACKET PO SCH (09:54)
[2018-12-13] MEDS: PTO:Polyethyl Glycol/Propylene Gly OPHTH.SOLN BOTH EYES SCH ×2 (09:55→19:50)
[2018-12-13] MEDS: Acetaminophen TAB* 325 MG PO PRN ×2 (09:56→22:22)
[2018-12-13] MEDS: Hydrocortisone 1% CREAM* 30 GM TUBE TOPICAL PRN (10:01)
--- NOTE | 2018-12-13 12:40 | PMRUTEAM ---
PMRU: Team Meeting Current Status: Nursing: Current Status Skin Deviations [Upper Back] Rash Skin Deviations [Bilateral Eye Other ] Skin Deviations [Bilateral Other Buttocks] Skin Deviations [Right Hip] Incision Skin Deviation Description [ faint pin pricked size raised rash Upper Back] Skin Deviation Description [ pink - better than last night Bilateral Eye] Skin Deviation Description [ redness Bilateral Buttocks] Skin Deviation Description [ clean and dry Right Hip] Drain Type [Upper Back] None Bladder Current Status voids, also incontinent Bowel Current Status miralax and colace given. last bm 12/05/18 Nutrition Current Status appetite poor this am. needs to be fed Medication Current Status ultram for pain this am Physical Therapy: Current Status Bed Mobility Assistance Min Assist Transfer Mobility Assistance Contact Guard Assist Transfer/Bed Mobility Rolling Walker Recommended Devices Ambulation Assistance Contact Guard Assist,Min Assist Ambulation Assistive Devices Rolling Walker Number of Feet Patient 150' x 2 Ambulated Stairs Assistance Contact Guard Assist Stairs Recommended Devices Two Rails Number of Stairs 5 Curb Not Tested Objective Comments step to pattern ascend/descending stairs with cues and hand over hand assist to transition hands from walker to railing. Occupational Therapy: Current Status Upper Body Dressing Total Assist Upper Body Dressing Progress assist for all aspects to don shirt and bra Lower Body Dressing Total Assist Lower Body Dressing Progress assist for all aspects, put can partially pull up pants with CGA Bathing Mod Assist Bathing Progress able to wash UEs/chest with max v/c's Toileting Mod Assist,Max Asst Toileting Progress Pt needs partial assist for clothing mmgt. A for hygiene after BM. Toilet Transfer Min Assist Toilet Transfer Progress min A x 1 Shower Transfer Min Assist Shower Transfer Progress Min A to stand using grab bar in shower Eating Min Assist,Mod Assist Eating Progress /staff assist with feeding Rec Therapy: Current Status Summary of Assessment and Recreation Therapy services introduced and Clinical Impression assessment is complete. Pt. has been involved in leisure visits and pet therapy in the afternoons. Treatment Goals Pt. will engage in leisure activities while on the unit. Treatment Plan Provide recreation therapy and encourage involvement. Social Work: Current Status Discharge Plan return home with home care svs and family support Potential for Family Training pt's is attending family training today Anticipated Discharge Home Destination Discharge With home care svs and family support Nutrition: Current Status Monitoring PO continues consistently >80%. Independent at some meals; still occ needs supervision/containers open/food cut. BG 115 12/09; no new labs to report . Daily BMs noted; last BM 12/12. Making good progress with goals; no new interventions to suggest at this time. Will continue to follow. Speech: Current Status Assessment Patient is progressing slowly as expected. Given simple printed directions, patient read aloud with poor understanding of purpose. 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 ENGLISH PROFESSOR consulted OT and PT about how they are providing directions. ENGLISH PROFESSOR has provided evaluation anbd treatment sessions, and consulted OT/PT as per plan of care. Discharge Speech-Language treatment. Goals: Physical Therapy: Initial Goals Bed Mobility Assistance Independent Transfer Mobility Assistance Independent Transfer/Bed Mobility Rolling Walker Recommended Devices Ambulation Independent Ambulation Recommended Devices Rolling Walker Ambulation Distance 150 Stairs Assistance Independent Stair Recommended Devices Two Rails Number of Stairs 5 Physical Therapy: Updated Goals Bed Mobility Assistance Supervision Transfer Mobility Assistance Supervision Transfer/Bed Mobility Rolling Walker Recommended Devices Ambulation Assistance Supervision Ambulation Assistive Devices Rolling Walker Ambulation Distance (ft) 150 Stairs Assistance Supervision Stairs Recommended Devices Two Rails Number of Stairs 5 Occupational Therapy: Initial Goals Goals to be Completed in (Days 3-4 weeks ) Upper Body Bathing Routine Minimal Contact Assist Lower Body Bathing Routine Moderate Assist Upper Body Dressing Routine Minimal Contact Assist,Moderate Assist Lower Body Dressing Routine Moderate Assist Toilet Hygeine and Clothing Minimal Contact Assist Management Routine Toilet Transfer Routine Minimal Contact Assist Step-In Shower Transfer Minimal Contact Assist Routine Functional Transfers for ADL Minimal Contact Assist Grooming Routine Supervision/Set Up Feeding Routine Supervision/Set Up Nursing: Goals Bladder Goal supervision Bowel Goal supervision Nutrition Goal 100% of all meals consumed. Medication Goal to administer meds Nutrition: Goals Intervention Goals 1. adequate intake to support stable wt, lean body mass, and hydration 2. maintain BG and serum electrolytes WNL 3. regulation of bowel pattern; no c/o constipation (or diarrhea) Speech: Goals Speech Goal 1 Language Comprehension Goal 1 Comments Language Comprehension Goals: Long-Term Goal: Pt will demonstrate comprehension of simple, one-part, concerte directions, 80% accuracy, given skilled instruction, Moderate cueing, and extra time. Status: Progressing slowly as expected. Discharge ST. Short-Term Goal: Pt will demonstrate comprehension of simple, one-part, concerte directions, 80% accuracy, given skilled instruction, Maximal cueing, and extra time. Status: Progressing slowly as expected. Patient followed 70% of directions given maximal directions Speech Goal 2 Problem Solving Speech Goal 2 Comments Problem Solving Goals: Long-Term Goal: Pt will solve simple routine problems, for transfer and mobility safety, adaptive dressing, time and money management; with 80% accuracy, given Moderate cueing. Status: Progressing slowly as expected. Discharge ST. Short-Term Goal: Pt will solve simple routine problems, for transfer and mobility safety, adaptive dressing, time and money management; with 80% accuracy, given skilled instruction, Maximum cueing, and extra time. Status: Progressing slowly as expected. Social Work: Goals Discharge Plan return home with home care svs and family support Potential for Family Training pt's is attending family training today Anticipated Discharge Home Destination Discharge With home care svs and family support Care Plan: Care Plan ADL's - Improve/Maintain Start: 11/23/18 16:15 Freq: DAILY Status: Active Target: Protocol: Activity Type Activity Date Activity User E-Sign Co-Sign Detail Recorded Client Recorded Date Recorded By Document 12/06/18 15:09 [id number] [id number] 12/06/18 15:10 [id number] 12/06/18 15:09 PMRU Outcome: ADL's/ADL Transfers Orders/Interventions Occupational Therapy Evaluation & Treatment Communication Tool in Patient Room Device Yes Address Deficits Secondary To: fall s/p Right hip ad Patient to receive OT 5x/wk for 60-120 Therex min/day Self Care Management Group Therapy UE/LE ADL's with Assist Yes: modA ADL Transfers with Assist Yes: Britt Toileting: Transfers,Clothing Management Yes: Britt ,Hygeine w/Assist Light Kitchen/Laundry w/Assist No Outcome/Goals Met Pt participated fair in treatment session, continues to require significant assistance for ADL routine, increased independence with sit to stand and transfer to toilet while still requiring max v/c's. Communication-Improve/Maintain Start: 11/23/18 12:46 Freq: DAILY Status: Active Target: Protocol: Activity Type Activity Date Activity User E-Sign Co-Sign Detail Recorded Client Recorded Date Recorded By Document 12/12/18 23:39 [id number] 12/12/18 23:40 [id number] 12/12/18 23:39 PMRU Outcome: Communication/Cognitive Status Outcome/Goals Met Comment calling out for help or Demetrio DVT Prophylaxis- Improve/Maintain Start: 11/23/18 12:46 Freq: QSHIFT Status: Active Target: Protocol: Activity Type Activity Date Activity User E-Sign Co-Sign Detail Recorded Client Recorded Date Recorded By Document 12/12/18 23:45 [id number] [id number] 12/12/18 23:47 [id number] 12/12/18 23:45 PMRU Outcome: DVT Prophylaxis Outcome/Goals Remains Free of DVT TEDS Stockings on Every AM, Off at HS Progression Toward Outcome/Goals Progressing Discharge Planning - Improve/Maintain Start: 11/23/18 12:46 Freq: DAILY Status: Active Target: Protocol: Activity Type Activity Date Activity User E-Sign Co-Sign Detail Recorded Client Recorded Date Recorded By Document 12/12/18 23:45 [id number] [email or web address]-C03 12/12/18 23:45 [id number] 12/12/18 23:45 PMRU Outcome: Discharge Planning Update Patient Family No Outcome/Goals Demonstrates Understanding of Discharge Plan Progression Toward Outcome/Goals Progressing Education-Improve/Maintain Start: 11/23/18 12:46 Freq: QSHIFT Status: Active Target: Protocol: Activity Type Activity Date Activity User E-Sign Co-Sign Detail Recorded Client Recorded Date Recorded By Document 12/12/18 23:45 [id number] [email or web address] 12/12/18 23:47 [id number] 12/12/18 23:45 PMRU Outcome: Education Outcome/Goals Demonstrates Skills Progression Toward Outcome/Goals Progressing /GI-Improve/Maintain Start: 11/23/18 12:46 Freq: QSHIFT Status: Active Target: Protocol: Activity Type Activity Date Activity User E-Sign Co-Sign Detail Recorded Client Recorded Date Recorded By Document 12/12/18 23:45 [id number] [facility]-C03 12/12/18 23:47 [id number] 12/12/18 23:45 PMRU Outcome: Genitourinary/ Gastrointestinal Genitourinary- Outcome/Goals Maintain/ Achieve Urinary Continence Maintain/ Achieve Adequate Urinary Output Gastrointestinal-Outcome/Goals Maintain/ Achieve Bowel Regularity in Accordance with Pt's Baseline Prevent Constipation Progression Toward Outcome/Goals - Progressing Outcome/Goals Met Comment can be incontinent Medication Administration Start: 11/23/18 12:46 Freq: QSHIFT Status: Active Target: Protocol: Activity Type Activity Date Activity User E-Sign Co-Sign Detail Recorded Client Recorded Date Recorded By Document 12/12/18 23:45 [id number] 12/12/18 23:47 [id number] 12/12/18 23:45 PMRU Outcome: Medication Administration Assess Patient Knowledge/Teach Med Yes Education for all Meds Outcome/Goals Family/ Caregiver Administer Medications at Home Progression Towards Outcome/Goals Progressing Is Patient Going Home on Lovenox? No Pain/Comfort- Improve/Maintain Start: 11/23/18 12:46 Freq: QSHIFT Status: Active Target: Protocol: Activity Type Activity Date Activity User E-Sign Co-Sign Detail Recorded Client Recorded Date Recorded By Document 12/12/18 23:45 [id number] [email or web address] 12/12/18 23:47 [id number] 12/12/18 23:45 PMRU Outcome: Pain/Comfort Outcome/Goals Achieves Acceptable Comfort/Pain Level as Determined by Patient/Condit Maintain Comfort Level Allowing Patient to Fully Participate in Rehab Progression Toward Outcome/Goals Progressing Outcome/Goals Met Comment pt resting Safety- Improve/Maintain Start: 11/23/18 12:46 Freq: QSHIFT Status: Active Target: Protocol: Activity Type Activity Date Activity User E-Sign Co-Sign Detail Recorded Client Recorded Date Recorded By Document 12/12/18 23:45 [id number] [email or web address] 12/12/18 23:47 [id number] 12/12/18 23:45 PMRU Outcome: Safety Outcome/Goals Remain Free of Injury or Harm Cooperates with Safety Measures for Least Restrictive Environment Prevent Falls/ Injury Progression Toward Outcome/Goals Progressing Outcome/Goals Met Comment BA armed Skin- Improve/Maintain Start: 11/23/18 12:46 Freq: QSHIFT Status: Active Target: Protocol: Activity Type Activity Date Activity User E-Sign Co-Sign Detail Recorded Client Recorded Date Recorded By Document 12/12/18 23:45 [id number] 12/12/18 23:47 [id number] 12/12/18 23:45 PMRU Outcome: Skin Skin Risk Level Low Outcome/Goals Maintain/ Improve Skin Intergrity Surgical Incisions Healing Progression Toward Outcome/Goals Progressing Medicine Note: Length of Stay: 1 week Anticipated Discharge Destination: Home Tentative Discharge Date: 12/20/18 Discharged to: Home vs SNF?
--- NOTE | 2018-12-13 19:33 | PN ---
Progress Note Date of Service: 12/13/18 Note: JARRETT MUSTAFA was visited. Therapy notes read and reviewed. She was discussed in interdisciplinary team rounds. She had Bactrim d/c'd and had a bad reaction to it. Urine culture was negative. Family training ongoing. Current Medications: Active Medications Generic Name Dose Route Start Last Admin Trade Name Freq PRN Reason Stop Dose Admin Acetaminophen 650 mg 11/23/18 15:53 12/13/18 09:56 Tylenol Tab* PO 650 mg Q4H PRN Administration FEVER/PAIN Bisacodyl 10 mg 11/23/18 20:45 11/23/18 21:11 Dulcolax Supp* [place] 10 mg DAILY PRN Administration CONSTIPATION Docusate Sodium 100 mg 11/23/18 21:00 12/13/18 09:52 Colace Cap* PO 100 mg BID ABILIO Administration Donepezil HCl 10 mg 11/23/18 21:00 12/13/18 09:53 Aricept (Nf) PO 10 mg BID ABILIO Administration Heparin Sodium (Porcine) 5,000 units 11/23/18 22:00 12/13/18 14:36 Heparin Vial(*) SUBCUT 5,000 units Q8HR ABILIO Administration Hydrocortisone 1 applic 12/02/18 09:11 12/13/18 10:01 Hytone Cream 1%* TOPICAL 1 applic TID PRN Administration itching rash Magnesium Hydroxide 30 ml 11/23/18 15:53 Milk Of Magnesia Liq* PO Q6H PRN CONSTIPATION Memantine 10 mg 11/23/18 21:00 12/13/18 09:53 Namenda Tab* PO 10 mg BID ABILIO Administration Polyethyl Glycol/Propylene Glycol 1 drop 11/23/18 21:00 12/13/18 09:55 Lubricant Eye Drops BOTH EYES 1 drop BID ABILIO Administration Polyethylene Glycol/Electrolytes 17 gm 11/24/18 09:00 12/13/18 09:54 Miralax* PO 17 gm DAILY ABILIO Administration Senna 2 tab 11/23/18 15:53 11/25/18 21:25 Senokot Tab* PO 2 tab BEDTIME PRN Administration CONSTIPATION Tramadol HCl 50 mg 12/07/18 13:20 12/09/18 08:32 Ultram* PO 50 mg Q6H PRN Administration PAIN - MODERATE Vital Signs: Vital Signs Temp Pulse Resp BP Pulse Ox 97.6 F 78 20 138/60 99 12/13/18 15:55 12/13/18 15:55 12/13/18 15:55 12/13/18 15:55 12/13/18 15:55 Exam: GEN: no acute distress. alert and appropriate. poor memory and oriented to self. LUNGS: Clear to auscultation bilaterally HEART: regular rate and rhythm ABDOMEN: Soft, +bowel sounds, non-distended, non-tender EXTREMITIES: no edema. SKIN: rash stable NEUROLOGIC: BLE at least 4+/5 motor with normal sensation. She has difficulty following directions. Assessment/Plan: 1. Right Hip Fracture: WBAT. PT/OT. Follow up with Dr. Garland. [place] out 2. Cognitive Decline/Dementia: Aricept/Namenda. Seems worse on days after she did not sleep well. 3. DVT Prophylaxis: Heparin S/Q 4. Advance Directives: Full Code. is Surrogate Decision maker 5. Bladder Spasms/OAB/Lower abdominal discomfort: Urine culture was negative and d/c'd Bactim (received 2 days). May resume Myrbetriq 6. Rash on back: hydrocortisone cream tid prn. . 7. Leukocytosis: CBC better, this is a chronic problem. 12/13/18 19:34
[2018-12-14] MEDS: Acetaminophen TAB* 325 MG PO PRN ×2 (04:09→23:19)
[2018-12-14] MEDS: Heparin VIAL(*) 5000 UNITS/ML VIAL (FIVE THOUSAND) SUBCUT SCH ×3 (05:28→21:44)
[2018-12-14] MEDS: traMADol TAB* 50 MG PO PRN (06:10)
[2018-12-14] MEDS: Polyethylene Glycol 3350* 17 GM PACKET PO SCH (07:22)
[2018-12-14] MEDS: Docusate CAP* 100 MG PO SCH ×2 (07:22→19:46)
[2018-12-14] MEDS: Hydrocortisone 1% CREAM* 30 GM TUBE TOPICAL PRN (07:22)
[2018-12-14] MEDS: PTO:Polyethyl Glycol/Propylene Gly OPHTH.SOLN BOTH EYES SCH ×2 (07:22→19:46)
[2018-12-14] MEDS: MEMANTINE 10 MG PO SCH ×2 (07:23→19:44)
[2018-12-14] MEDS: DONEPEZIL HCL 10 MG PO SCH ×2 (07:23→19:44)
--- NOTE | 2018-12-14 18:31 | PN ---
Progress Note Date of Service: 12/14/18 Note: JARRETT MUSTAFA was visited. Therapy notes read and reviewed. She was observed ambulating and did fairly well. 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 Current Medications: Active Medications Generic Name Dose Route Start Last Admin Trade Name Freq PRN Reason Stop Dose Admin Acetaminophen 650 mg 11/23/18 15:53 12/14/18 04:09 Tylenol Tab* PO 650 mg Q4H PRN Administration FEVER/PAIN Bisacodyl 10 mg 11/23/18 20:45 11/23/18 21:11 Dulcolax Supp* [place] 10 mg DAILY PRN Administration CONSTIPATION Docusate Sodium 100 mg 11/23/18 21:00 12/14/18 07:22 Colace Cap* PO 100 mg BID ABILIO Administration Donepezil HCl 10 mg 11/23/18 21:00 12/14/18 07:23 Aricept (Nf) PO 10 mg BID ABILIO Administration Heparin Sodium (Porcine) 5,000 units 11/23/18 22:00 12/14/18 14:20 Heparin Vial(*) SUBCUT 5,000 units Q8HR ABILIO Administration Hydrocortisone 1 applic 12/02/18 09:11 12/14/18 07:22 Hytone Cream 1%* TOPICAL 1 applic TID PRN Administration itching rash Magnesium Hydroxide 30 ml 11/23/18 15:53 Milk Of Magnesia Liq* PO Q6H PRN CONSTIPATION Memantine 10 mg 11/23/18 21:00 12/14/18 07:23 Namenda Tab* PO 10 mg BID ABILIO Administration Polyethyl Glycol/Propylene Glycol 1 drop 11/23/18 21:00 12/14/18 07:22 Lubricant Eye Drops BOTH EYES 1 drop BID ABILIO Administration Polyethylene Glycol/Electrolytes 17 gm 11/24/18 09:00 12/14/18 07:22 Miralax* PO 17 gm DAILY ABILIO Administration Senna 2 tab 11/23/18 15:53 11/25/18 21:25 Senokot Tab* PO 2 tab BEDTIME PRN Administration CONSTIPATION Tramadol HCl 50 mg 12/14/18 18:30 Ultram* PO Q6H PRN PAIN - MODERATE TO SEVERE Vital Signs: Vital Signs Temp Pulse Resp BP Pulse Ox 98.5 F 73 18 104/46 98 12/14/18 15:10 12/14/18 15:10 12/14/18 15:10 12/14/18 15:10 12/14/18 15:17 Exam: GEN: no acute distress. alert and appropriate. poor memory and oriented to self. LUNGS: Clear to auscultation bilaterally HEART: regular rate and rhythm ABDOMEN: Soft, +bowel sounds, non-distended, non-tender EXTREMITIES: no edema. SKIN: rash stable NEUROLOGIC: BLE at least 4+/5 motor with normal sensation. She has difficulty following directions. Assessment/Plan: 1. Right Hip Fracture: WBAT. PT/OT. Follow up with Dr. Garland. [place] out 2. Cognitive Decline/Dementia: Aricept/Namenda. Seems worse on days after she did not sleep well. 3. DVT Prophylaxis: Heparin S/Q 4. Advance Directives: Full Code. is Surrogate Decision maker 5. Bladder Spasms/OAB/Lower abdominal discomfort: May resume Myrbetriq 6. Rash on back: hydrocortisone cream tid prn. . 7. Leukocytosis: CBC better, this is a chronic problem. 12/14/18 18:32
[2018-12-15] MEDS: Acetaminophen TAB* 325 MG PO PRN ×2 (03:22→09:47)
[2018-12-15] MEDS: Heparin VIAL(*) 5000 UNITS/ML VIAL (FIVE THOUSAND) SUBCUT SCH ×3 (05:18→21:58)
[2018-12-15] MEDS: Docusate CAP* 100 MG PO SCH ×2 (08:31→20:14)
[2018-12-15] MEDS: PTO:Polyethyl Glycol/Propylene Gly OPHTH.SOLN BOTH EYES SCH ×2 (08:31→20:14)
[2018-12-15] MEDS: MEMANTINE 10 MG PO SCH ×2 (08:31→20:14)
[2018-12-15] MEDS: Polyethylene Glycol 3350* 17 GM PACKET PO SCH (08:31)
[2018-12-15] MEDS: DONEPEZIL HCL 10 MG PO SCH ×2 (08:32→20:14)
--- NOTE | 2018-12-15 16:58 | PN ---
Progress Note Date of Service: 12/15/18 Note: JARRETT MUSTAFA was visited. Therapy notes read and reviewed. She has no complaints. Was able to do some walking today. worried about her bed on first floor. Current Medications: Active Medications Generic Name Dose Route Start Last Admin Trade Name Freq PRN Reason Stop Dose Admin Acetaminophen 650 mg 11/23/18 15:53 12/15/18 09:47 Tylenol Tab* PO 650 mg Q4H PRN Administration FEVER/PAIN Bisacodyl 10 mg 11/23/18 20:45 11/23/18 21:11 Dulcolax Supp* [place] 10 mg DAILY PRN Administration CONSTIPATION Docusate Sodium 100 mg 11/23/18 21:00 12/15/18 08:31 Colace Cap* PO 100 mg BID ABILIO Administration Donepezil HCl 10 mg 11/23/18 21:00 12/15/18 08:32 Aricept (Nf) PO 10 mg BID ABILIO Administration Heparin Sodium (Porcine) 5,000 units 11/23/18 22:00 12/15/18 13:41 Heparin Vial(*) SUBCUT 5,000 units Q8HR ABILIO Administration Hydrocortisone 1 applic 12/02/18 09:11 12/14/18 07:22 Hytone Cream 1%* TOPICAL 1 applic TID PRN Administration itching rash Magnesium Hydroxide 30 ml 11/23/18 15:53 Milk Of Magnesia Liq* PO Q6H PRN CONSTIPATION Memantine 10 mg 11/23/18 21:00 12/15/18 08:31 Namenda Tab* PO 10 mg BID ABILIO Administration Mirabegron 25 mg 12/16/18 09:00 Myrbetriq (Nf) PO DAILY ABILIO Polyethyl Glycol/Propylene Glycol 1 drop 11/23/18 21:00 12/15/18 08:31 Lubricant Eye Drops BOTH EYES 1 drop BID ABILIO Administration Polyethylene Glycol/Electrolytes 17 gm 11/24/18 09:00 12/15/18 08:31 Miralax* PO 17 gm DAILY ABILIO Administration Senna 2 tab 11/23/18 15:53 11/25/18 21:25 Senokot Tab* PO 2 tab BEDTIME PRN Administration CONSTIPATION Tramadol HCl 50 mg 12/14/18 18:30 Ultram* PO Q6H PRN PAIN - MODERATE TO SEVERE Vital Signs: Vital Signs Temp Pulse Resp BP Pulse Ox 98.1 F 73 16 114/58 99 12/15/18 05:21 12/15/18 05:21 12/15/18 16:09 12/15/18 05:21 12/15/18 16:09 Exam: GEN: no acute distress. alert and appropriate. poor memory and oriented to self. LUNGS: Clear to auscultation bilaterally HEART: regular rate and rhythm ABDOMEN: Soft, +bowel sounds, non-distended, non-tender EXTREMITIES: no edema. SKIN: rash fading NEUROLOGIC: BLE at least 4+/5 motor with normal sensation. She has difficulty following directions. Assessment/Plan: 1. Right Hip Fracture: WBAT. PT/OT. Follow up with Dr. Garland. [place] out 2. Cognitive Decline/Dementia: Aricept/Namenda. Seems worse on days after she did not sleep well. 3. DVT Prophylaxis: Heparin S/Q 4. Advance Directives: Full Code. is Surrogate Decision maker 5. Bladder Spasms/OAB/Lower abdominal discomfort: May resume Myrbetriq 6. Rash on back: hydrocortisone cream tid prn. . 7. Leukocytosis: CBC better, this is a chronic problem. 12/14/18 18:32
[2018-12-16] MEDS: Acetaminophen TAB* 325 MG PO PRN ×3 (01:51→23:30)
[2018-12-16 05:42] LABS: Albumin 3.6 g/dL (3.2-5.2); Albumin/Globulin Ratio 1.3 (1-3); BUN/Creatinine Ratio 23.9 (8-20); Calcium 9.7 mg/dL (8.6-10.3); EGFR African American 95.8 (>60); EGFR Non-African American 79.2 (>60); Globulin 2.8 g/dL (2-4); Potassium 4.1 mmol/L (3.5-5.0); Total Bilirubin 0.5 mg/dL (0.2-1.0); Total Protein 6.4 g/dL (6.4-8.9)
[2018-12-16] MEDS: Heparin VIAL(*) 5000 UNITS/ML VIAL (FIVE THOUSAND) SUBCUT SCH ×3 (05:42→21:33)
[2018-12-16 05:44] LABS: ABS Basophils 0.1 10^3/ul (0-0.2); ABS Eosinophils 0.2 10^3/ul (0-0.6); ABS Lymphocytes 2.8 10^3/ul (1.0-4.8); ABS Monocytes 1.4 10^3/ul (0-0.8); ABS Neutrophils 6.7 10^3/ul (1.5-7.7); Hematocrit 33 % (35-47); Lymphocyte % 25.2 %; Mean Corpuscular HGB Conc 33 g/dL (31-36); Mean Corpuscular Hemoglobin 32 pg (27-31); Mean Corpuscular Volume 96 fL (80-97); Mean Platelet Volume 7.4 fL (7.4-10.4); Platelet Count 339 10^3/uL (150-450); Red Blood Count 3.45 10^6 /uL (3.70-4.87); Red Cell Distribution Width 14 % (10-15); White Blood Count 11.2 10^3/uL (3.5-10.8)
[2018-12-16] MEDS: DONEPEZIL HCL 10 MG PO SCH ×2 (08:19→21:32)
[2018-12-16] MEDS: PTO: Mirabegron (NF) 25 MG TAB PO SCH (08:19)
[2018-12-16] MEDS: MEMANTINE 10 MG PO SCH ×2 (08:19→21:32)
[2018-12-16] MEDS: PTO:Polyethyl Glycol/Propylene Gly OPHTH.SOLN BOTH EYES SCH ×2 (08:19→21:31)
[2018-12-16] MEDS: Docusate CAP* 100 MG PO SCH ×2 (08:20→21:33)
[2018-12-16] MEDS: Polyethylene Glycol 3350* 17 GM PACKET PO SCH (08:56)
--- NOTE | 2018-12-16 16:30 | PN ---
Progress Note Date of Service: 12/16/18 Note: JARRETT MUSTAFA was visited. Therapy notes read and reviewed. Her WBC down to 11 K today. She has no complaints. She is back on Myrbetriq Current Medications: Active Medications Generic Name Dose Route Start Last Admin Trade Name Freq PRN Reason Stop Dose Admin Acetaminophen 650 mg 11/23/18 15:53 12/16/18 08:19 Tylenol Tab* PO 650 mg Q4H PRN Administration FEVER/PAIN Bisacodyl 10 mg 11/23/18 20:45 11/23/18 21:11 Dulcolax Supp* [place] 10 mg DAILY PRN Administration CONSTIPATION Docusate Sodium 100 mg 11/23/18 21:00 12/16/18 08:20 Colace Cap* PO 100 mg BID ABILIO Administration Donepezil HCl 10 mg 11/23/18 21:00 12/16/18 08:19 Aricept (Nf) PO 10 mg BID ABILIO Administration Heparin Sodium (Porcine) 5,000 units 11/23/18 22:00 12/16/18 13:30 Heparin Vial(*) SUBCUT 5,000 units Q8HR ABILIO Administration Hydrocortisone 1 applic 12/02/18 09:11 12/14/18 07:22 Hytone Cream 1%* TOPICAL 1 applic TID PRN Administration itching rash Magnesium Hydroxide 30 ml 11/23/18 15:53 Milk Of Magnesia Liq* PO Q6H PRN CONSTIPATION Memantine 10 mg 11/23/18 21:00 12/16/18 08:19 Namenda Tab* PO 10 mg BID ABILIO Administration Mirabegron 25 mg 12/16/18 09:00 12/16/18 08:19 Myrbetriq (Nf) PO 25 mg DAILY ABILIO Administration Polyethyl Glycol/Propylene Glycol 1 drop 11/23/18 21:00 12/16/18 08:19 Lubricant Eye Drops BOTH EYES 1 drop BID ABILIO Administration Polyethylene Glycol/Electrolytes 17 gm 11/24/18 09:00 12/16/18 08:56 Miralax* PO 17 gm DAILY ABILIO Administration Senna 2 tab 11/23/18 15:53 11/25/18 21:25 Senokot Tab* PO 2 tab BEDTIME PRN Administration CONSTIPATION Tramadol HCl 50 mg 12/14/18 18:30 Ultram* PO Q6H PRN PAIN - MODERATE TO SEVERE Vital Signs: Vital Signs Temp Pulse Resp BP Pulse Ox 98.1 F 73 16 134/54 100 12/15/18 05:21 12/15/18 21:14 12/16/18 09:24 12/15/18 21:14 12/15/18 21:14 Lab Results: Laboratory Results - last 24 hr 12/16/18 12/16/18 05:19 05:19 WBC 11.2 H RBC 3.45 L Hgb 11.0 L Hct 33 L MCV 96 MCH 32 H MCHC 33 RDW 14 Plt Count 339 MPV 7.4 Neut % (Auto) 59.7 Lymph % (Auto) 25.2 [place] % (Auto) 12.5 Eos % (Auto) 2.0 Baso % (Auto) 0.6 Absolute Neuts (auto) 6.7 Absolute Lymphs (auto) 2.8 Absolute Monos (auto) 1.4 H Absolute Eos (auto) 0.2 Absolute Basos (auto) 0.1 Absolute Nucleated RBC 0.0 Nucleated RBC % 0.0 Sodium 139 Potassium 4.1 Chloride 105 Carbon Dioxide 28 Anion Gap 6 BUN 17 Creatinine 0.71 Est GFR ( Amer) 95.8 Est GFR (Non-Af Amer) 79.2 BUN/Creatinine Ratio 23.9 H Glucose 104 H Calcium 9.7 Total Bilirubin 0.50 AST 13 ALT 13 Alkaline Phosphatase 74 Total Protein 6.4 Albumin 3.6 Globulin 2.8 Albumin/Globulin Ratio 1.3 Exam: GEN: no acute distress. alert and appropriate. poor memory and oriented to self. LUNGS: Clear to auscultation bilaterally HEART: regular rate and rhythm ABDOMEN: Soft, +bowel sounds, non-distended, non-tender EXTREMITIES: no edema. SKIN: rash fading NEUROLOGIC: BLE at least 4+/5 motor with normal sensation. She has difficulty following directions. Assessment/Plan: 1. Right Hip Fracture: WBAT. PT/OT. Follow up with Dr. Garland. [place] out 2. Cognitive Decline/Dementia: Aricept/Namenda. Seems worse on days after she did not sleep well. 3. DVT Prophylaxis: Heparin S/Q 4. Advance Directives: Full Code. is Surrogate Decision maker 5. Bladder Spasms/OAB/Lower abdominal discomfort: Resumed Myrbetriq 6. Rash on back: hydrocortisone cream tid prn. . 7. Leukocytosis: CBC better, this is a chronic problem. 12/16/18 16:30
[2018-12-17] MEDS: Heparin VIAL(*) 5000 UNITS/ML VIAL (FIVE THOUSAND) SUBCUT SCH ×3 (06:02→21:29)
[2018-12-17] MEDS: Docusate CAP* 100 MG PO SCH ×2 (07:26→21:25)
[2018-12-17] MEDS: MEMANTINE 10 MG PO SCH ×2 (07:27→21:27)
[2018-12-17] MEDS: PTO: Mirabegron (NF) 25 MG TAB PO SCH (07:27)
[2018-12-17] MEDS: DONEPEZIL HCL 10 MG PO SCH ×2 (07:27→21:26)
[2018-12-17] MEDS: Polyethylene Glycol 3350* 17 GM PACKET PO SCH (07:28)
[2018-12-17] MEDS: PTO:Polyethyl Glycol/Propylene Gly OPHTH.SOLN BOTH EYES SCH ×2 (07:29→21:28)
--- NOTE | 2018-12-17 19:05 | PN ---
Progress Note Date of Service: 12/17/18 Note: JARRETT MUTSAFA was visited. Therapy notes read and reviewed. She was able to do stairs today with therapy. Otherwise she has no complaints Current Medications: Active Medications Generic Name Dose Route Start Last Admin Trade Name Freq PRN Reason Stop Dose Admin Acetaminophen 650 mg 11/23/18 15:53 12/16/18 23:30 Tylenol Tab* PO 650 mg Q4H PRN Administration FEVER/PAIN Bisacodyl 10 mg 11/23/18 20:45 11/23/18 21:11 Dulcolax Supp* [place] 10 mg DAILY PRN Administration CONSTIPATION Docusate Sodium 100 mg 11/23/18 21:00 12/17/18 07:26 Colace Cap* PO 100 mg BID ABILIO Administration Donepezil HCl 10 mg 11/23/18 21:00 12/17/18 07:27 Aricept (Nf) PO 10 mg BID ABILIO Administration Heparin Sodium (Porcine) 5,000 units 11/23/18 22:00 12/17/18 14:27 Heparin Vial(*) SUBCUT 5,000 units Q8HR ABILIO Administration Hydrocortisone 1 applic 12/02/18 09:11 12/14/18 07:22 Hytone Cream 1%* TOPICAL 1 applic TID PRN Administration itching rash Magnesium Hydroxide 30 ml 11/23/18 15:53 Milk Of Esther Liq* PO Q6H PRN CONSTIPATION Memantine 10 mg 11/23/18 21:00 12/17/18 07:27 Namenda Tab* PO 10 mg BID ABILIO Administration Mirabegron 25 mg 12/16/18 09:00 12/17/18 07:27 Myrbetriq (Nf) PO 25 mg DAILY ABILIO Administration Polyethyl Glycol/Propylene Glycol 1 drop 11/23/18 21:00 12/17/18 07:29 Lubricant Eye Drops BOTH EYES 1 drop BID ABILIO Administration Polyethylene Glycol/Electrolytes 17 gm 11/24/18 09:00 12/17/18 07:28 Miralax* PO 17 gm DAILY ABILIO Administration Senna 2 tab 11/23/18 15:53 11/25/18 21:25 Senokot Tab* PO 2 tab BEDTIME PRN Administration CONSTIPATION Tramadol HCl 50 mg 12/14/18 18:30 Ultram* PO Q6H PRN PAIN - MODERATE TO SEVERE Vital Signs: Vital Signs Temp Pulse Resp BP Pulse Ox 98.5 F 83 16 124/60 99 12/17/18 16:30 12/17/18 16:30 12/17/18 16:30 12/17/18 16:30 12/17/18 16:30 Exam: GEN: no acute distress. alert and appropriate. poor memory and oriented to self. LUNGS: Clear to auscultation bilaterally HEART: regular rate and rhythm ABDOMEN: Soft, +bowel sounds, non-distended, non-tender EXTREMITIES: no edema. SKIN: rash fading NEUROLOGIC: BLE at least 4+/5 motor with normal sensation. She has difficulty following directions. Assessment/Plan: 1. Right Hip Fracture: WBAT. PT/OT. Follow up with Dr. Garland. [place] out 2. Cognitive Decline/Dementia: Aricept/Namenda. Seems worse on days after she did not sleep well. 3. DVT Prophylaxis: Heparin S/Q 4. Advance Directives: Full Code. is Surrogate Decision maker 5. Bladder Spasms/OAB: Resumed Myrbetriq 6. Rash on back: hydrocortisone cream tid prn. . 7. Leukocytosis: CBC better, this is a chronic problem. 12/17/18 19:05
[2018-12-17] MEDS: Acetaminophen TAB* 325 MG PO PRN (22:15)
[2018-12-18] MEDS: traMADol TAB* 50 MG PO PRN (05:01)
[2018-12-18] MEDS: Heparin VIAL(*) 5000 UNITS/ML VIAL (FIVE THOUSAND) SUBCUT SCH ×3 (05:03→21:23)
[2018-12-18] MEDS: DONEPEZIL HCL 10 MG PO SCH ×2 (09:14→21:21)
[2018-12-18] MEDS: Polyethylene Glycol 3350* 17 GM PACKET PO SCH (09:14)
[2018-12-18] MEDS: PTO: Mirabegron (NF) 25 MG TAB PO SCH (09:14)
[2018-12-18] MEDS: MEMANTINE 10 MG PO SCH ×2 (09:14→21:22)
[2018-12-18] MEDS: Acetaminophen TAB* 325 MG PO PRN ×2 (09:16→21:27)
[2018-12-18] MEDS: Docusate CAP* 100 MG PO SCH ×2 (09:18→21:20)
[2018-12-18] MEDS: PTO:Polyethyl Glycol/Propylene Gly OPHTH.SOLN BOTH EYES SCH ×2 (09:19→21:22)
--- NOTE | 2018-12-18 17:06 | PN ---
Progress Note Date of Service: 12/18/18 Note: JARRETT MUSTAFA was visited. Nursing notes read and reviewed. She has no complaints today and is on a toileting program. Has not been incontinent today Current Medications: Active Medications Generic Name Dose Route Start Last Admin Trade Name Freq PRN Reason Stop Dose Admin Acetaminophen 650 mg 11/23/18 15:53 12/18/18 09:16 Tylenol Tab* PO 650 mg Q4H PRN Administration FEVER/PAIN Bisacodyl 10 mg 11/23/18 20:45 11/23/18 21:11 Dulcolax Supp* [place] 10 mg DAILY PRN Administration CONSTIPATION Docusate Sodium 100 mg 11/23/18 21:00 12/18/18 09:18 Colace Cap* PO 100 mg BID ABILIO Administration Donepezil HCl 10 mg 11/23/18 21:00 12/18/18 09:14 Aricept (Nf) PO 10 mg BID ABILIO Administration Heparin Sodium (Porcine) 5,000 units 11/23/18 22:00 12/18/18 13:56 Heparin Vial(*) SUBCUT 5,000 units Q8HR ABILIO Administration Hydrocortisone 1 applic 12/02/18 09:11 12/14/18 07:22 Hytone Cream 1%* TOPICAL 1 applic TID PRN Administration itching rash Magnesium Hydroxide 30 ml 11/23/18 15:53 Milk Of Magnesia Liq* PO Q6H PRN CONSTIPATION Memantine 10 mg 11/23/18 21:00 12/18/18 09:14 Namenda Tab* PO 10 mg BID ABILIO Administration Mirabegron 25 mg 12/16/18 09:00 12/18/18 09:14 Myrbetriq (Nf) PO 25 mg DAILY ABILIO Administration Polyethyl Glycol/Propylene Glycol 1 drop 11/23/18 21:00 12/18/18 09:19 Lubricant Eye Drops BOTH EYES 1 drop BID ABILIO Administration Polyethylene Glycol/Electrolytes 17 gm 11/24/18 09:00 12/18/18 09:14 Miralax* PO 17 gm DAILY ABILIO Administration Senna 2 tab 11/23/18 15:53 11/25/18 21:25 Senokot Tab* PO 2 tab BEDTIME PRN Administration CONSTIPATION Tramadol HCl 50 mg 12/14/18 18:30 12/18/18 05:01 Ultram* PO 50 mg Q6H PRN Administration PAIN - MODERATE TO SEVERE Vital Signs: Vital Signs Temp Pulse Resp BP Pulse Ox 98.1 F 73 16 127/56 97 12/18/18 04:50 12/18/18 04:50 12/18/18 06:40 12/18/18 04:50 12/18/18 08:00 Exam: GEN: no acute distress. alert and appropriate. poor memory and oriented to self. LUNGS: Clear to auscultation bilaterally HEART: regular rate and rhythm ABDOMEN: Soft, +bowel sounds, non-distended, non-tender EXTREMITIES: no edema. SKIN: rash fading NEUROLOGIC: BLE at least 4+/5 motor with normal sensation. She has difficulty following directions. Assessment/Plan: 1. Right Hip Fracture: WBAT. PT/OT. Follow up with Dr. Garland. [place] out 2. Cognitive Decline/Dementia: Aricept/Namenda. Seems worse on days after she did not sleep well. 3. DVT Prophylaxis: Heparin S/Q 4. Advance Directives: Full Code. is Surrogate Decision maker 5. Bladder Spasms/OAB: Resumed Myrbetriq 6. Rash on back: hydrocortisone cream tid prn. . 7. Leukocytosis: CBC better, this is a chronic problem. 12/18/18 17:07
[2018-12-19] MEDS: Acetaminophen TAB* 325 MG PO PRN ×2 (02:33→09:01)
[2018-12-19] MEDS: Heparin VIAL(*) 5000 UNITS/ML VIAL (FIVE THOUSAND) SUBCUT SCH ×3 (06:01→22:23)
[2018-12-19] MEDS: traMADol TAB* 50 MG PO PRN (06:02)
[2018-12-19] MEDS: Docusate CAP* 100 MG PO SCH ×2 (08:59→19:56)
[2018-12-19] MEDS: DONEPEZIL HCL 10 MG PO SCH ×2 (08:59→19:56)
[2018-12-19] MEDS: MEMANTINE 10 MG PO SCH ×2 (09:00→19:57)
[2018-12-19] MEDS: PTO:Polyethyl Glycol/Propylene Gly OPHTH.SOLN BOTH EYES SCH ×2 (09:00→19:56)
[2018-12-19] MEDS: PTO: Mirabegron (NF) 25 MG TAB PO SCH (09:00)
[2018-12-19] MEDS: Polyethylene Glycol 3350* 17 GM PACKET PO SCH (09:01)
--- NOTE | 2018-12-19 18:43 | PN ---
Progress Note Date of Service: 12/19/18 Note: JARRETT MUSTAFA was visited. Therapy notes read and reviewed. She has no complaints. Moving pretty well. Some left hip pain Current Medications: Active Medications Generic Name Dose Route Start Last Admin Trade Name Freq PRN Reason Stop Dose Admin Acetaminophen 650 mg 11/23/18 15:53 12/19/18 09:01 Tylenol Tab* PO 650 mg Q4H PRN Administration FEVER/PAIN Bisacodyl 10 mg 11/23/18 20:45 11/23/18 21:11 Dulcolax Supp* [place] 10 mg DAILY PRN Administration CONSTIPATION Docusate Sodium 100 mg 11/23/18 21:00 12/19/18 08:59 Colace Cap* PO 100 mg BID ABILIO Administration Donepezil HCl 10 mg 11/23/18 21:00 12/19/18 08:59 Aricept (Nf) PO 10 mg BID ABILIO Administration Heparin Sodium (Porcine) 5,000 units 11/23/18 22:00 12/19/18 14:07 Heparin Vial(*) SUBCUT 5,000 units Q8HR ABILIO Administration Hydrocortisone 1 applic 12/02/18 09:11 12/14/18 07:22 Hytone Cream 1%* TOPICAL 1 applic TID PRN Administration itching rash Magnesium Hydroxide 30 ml 11/23/18 15:53 Milk Of Magnesia Liq* PO Q6H PRN CONSTIPATION Memantine 10 mg 11/23/18 21:00 12/19/18 09:00 Namenda Tab* PO 10 mg BID ABILIO Administration Mirabegron 25 mg 12/16/18 09:00 12/19/18 09:00 Myrbetriq (Nf) PO 25 mg DAILY ABILIO Administration Polyethyl Glycol/Propylene Glycol 1 drop 11/23/18 21:00 12/19/18 09:00 Lubricant Eye Drops BOTH EYES 1 drop BID ABILIO Administration Polyethylene Glycol/Electrolytes 17 gm 11/24/18 09:00 12/19/18 09:01 Miralax* PO 17 gm DAILY ABILIO Administration Senna 2 tab 11/23/18 15:53 11/25/18 21:25 Senokot Tab* PO 2 tab BEDTIME PRN Administration CONSTIPATION Tramadol HCl 50 mg 12/14/18 18:30 12/19/18 06:02 Ultram* PO 50 mg Q6H PRN Administration PAIN - MODERATE TO SEVERE Vital Signs: Vital Signs Temp Pulse Resp BP Pulse Ox 98.3 F 67 16 123/53 98 12/19/18 15:50 12/19/18 15:50 12/19/18 16:54 12/19/18 15:50 12/19/18 16:54 Exam: GEN: no acute distress. alert and appropriate. poor memory and oriented to self. LUNGS: Clear to auscultation bilaterally HEART: regular rate and rhythm ABDOMEN: Soft, +bowel sounds, non-distended, non-tender EXTREMITIES: no edema. SKIN: rash fading NEUROLOGIC: BLE at least 4+/5 motor with normal sensation. She has difficulty following directions. Assessment/Plan: 1. Right Hip Fracture: WBAT. PT/OT. Follow up with Dr. Garland. [place] out 2. Cognitive Decline/Dementia: Aricept/Namenda. Seems worse on days after she did not sleep well. 3. DVT Prophylaxis: Heparin S/Q 4. Advance Directives: Full Code. is Surrogate Decision maker 5. Bladder Spasms/OAB: Resumed Myrbetriq 6. Rash on back: hydrocortisone cream tid prn. . 7. Leukocytosis: CBC better, this is a chronic problem. 12/19/18 18:43
[2018-12-20] MEDS: Heparin VIAL(*) 5000 UNITS/ML VIAL (FIVE THOUSAND) SUBCUT SCH ×3 (05:56→21:44)
[2018-12-20] MEDS: Acetaminophen TAB* 325 MG PO PRN (06:40)
[2018-12-20] MEDS: traMADol TAB* 50 MG PO PRN (07:24)
[2018-12-20] MEDS: Docusate CAP* 100 MG PO SCH ×2 (07:24→20:41)
[2018-12-20] MEDS: PTO: Mirabegron (NF) 25 MG TAB PO SCH (07:25)
[2018-12-20] MEDS: Polyethylene Glycol 3350* 17 GM PACKET PO SCH (07:25)
[2018-12-20] MEDS: MEMANTINE 10 MG PO SCH ×2 (07:26→20:41)
[2018-12-20] MEDS: DONEPEZIL HCL 10 MG PO SCH ×2 (07:26→20:41)
[2018-12-20] MEDS: PTO:Polyethyl Glycol/Propylene Gly OPHTH.SOLN BOTH EYES SCH ×2 (07:26→20:41)
--- NOTE | 2018-12-20 12:48 | PMRUTEAM ---
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 last bm 12/19/18 Nutrition Current Status 75% breakfast consumed this AM Medication Current Status Tylenol for pain Physical Therapy: Current Status Bed Mobility Assistance Min Assist Transfer Mobility Assistance Contact Guard Assist Transfer/Bed Mobility Rolling Walker Recommended Devices Ambulation Assistance Contact Guard Assist Ambulation Assistive Devices Rolling Walker Number of Feet Patient 2x150', 3x50' Ambulated Stairs Assistance Min Assist Stairs Recommended Devices One Rail Number of Stairs 12 Curb Not Tested Objective Comments step to pattern ascend/descending flight of stairs with 2 hands on L rail ascending/R rail descending with min steadying assist at gait belt. PT provided x4 cues throughout session for pt not to cross her legs. Occupational Therapy: Current Status Upper Body Dressing Total Assist Upper Body Dressing Progress assist for all aspects to don shirt and bra Lower Body Dressing Total Assist Lower Body Dressing Progress assist for all aspects, put can partially pull up pants with CGA Bathing Mod Assist,Max Asst Bathing Progress able to wash UEs/chest with max v/c's Toileting Mod Assist Toileting Progress Pt needs partial assist for clothing mmgt. A for hygiene after BM. Toilet Transfer Contact Guard Assist Toilet Transfer Progress min A x 1 Shower Transfer Contact Guard Assist Shower Transfer Progress to stand using grab bar in shower Eating Min Assist Eating Progress /staff assist with feeding Rec Therapy: Current Status Summary of Assessment and RT assessment completed on 11/23. Patient has been Clinical Impression involved in leisure visits and pet therapy in the afternoons. Treatment Goals Patient will engage in recreation and leisure activities while on the unit. Treatment Plan Continue to provide and encourage involvement in RT services. Social Work: Current Status Discharge Plan return home with home care svs and family support Potential for Family Training pt's has participated in family training Anticipated Discharge Home Destination Discharge With home care svs and family support Nutrition: Current Status Monitoring Pt continues on a regular diet. Intake remains good, w/ PO consistently > 70% of meals. Anticipate overall intake to be adequate. Pt does require assistance at meal times. Per chart, her was present to help w/ dinner last night. No GI s/sx, such as N/V, noted. Pt is having daily BMs (last documented 12/19). Per nursing assessment , pt w/o difficulty chewing/swallowing. Per chart, pt w/o pressure related skin breakdown. Labs reviewed 12/16; electrolytes WNL, B. Pt continues to make progress. Nutrition intervention not indicated at this time. Will remain available as indicated. Speech: Current Status Assessment Patient is progressing slowly as expected. Given simple printed directions, patient read aloud with poor understanding of purpose. Given physical demonstration and prompting, and 5x repetions with cues faded and provided as needed, patient required maximal cueing to tell this poem writer 4 simple steps to stand, and 3 steps to sit. TEST CONDUCTOR consulted OT and PT about how they are providing directions. TEST CONDUCTOR has provided evaluation anbd treatment sessions, and consulted OT/PT as per plan of care. Discharge Speech-Language treatment. Goals: Physical Therapy: Initial Goals Bed Mobility Assistance Independent Transfer Mobility Assistance Independent Transfer/Bed Mobility Rolling Walker Recommended Devices Ambulation Independent Ambulation Recommended Devices Rolling Walker Ambulation Distance 150 Stairs Assistance Independent Stair Recommended Devices Two Rails Number of Stairs 5 Physical Therapy: Updated Goals Bed Mobility Assistance Supervision Transfer Mobility Assistance Supervision Transfer/Bed Mobility Rolling Walker Recommended Devices Ambulation Assistance Supervision Ambulation Assistive Devices Rolling Walker Ambulation Distance (ft) 150 Stairs Assistance Supervision Stairs Recommended Devices Two Rails Number of Stairs 5 Occupational Therapy: Initial Goals Goals to be Completed in (Days 3-4 weeks ) Upper Body Bathing Routine Minimal Contact Assist Lower Body Bathing Routine Moderate Assist Upper Body Dressing Routine Minimal Contact Assist,Moderate Assist Lower Body Dressing Routine Moderate Assist Toilet Hygeine and Clothing Minimal Contact Assist Management Routine Toilet Transfer Routine Minimal Contact Assist Step-In Shower Transfer Minimal Contact Assist Routine Functional Transfers for ADL Minimal Contact Assist Grooming Routine Supervision/Set Up Feeding Routine Supervision/Set Up Nursing: Goals Bladder Goal supervision Bowel Goal supervision Nutrition Goal 100% of all meals consumed. Medication Goal to administer meds Nutrition: Goals Intervention Goals 1. adequate intake to support stable wt, lean body mass, and hydration 2. maintain BG and serum electrolytes WNL 3. regulation of bowel pattern; no c/o constipation (or diarrhea) Speech: Goals Speech Goal 1 Language Comprehension Goal 1 Comments Language Comprehension Goals: Long-Term Goal: Pt will demonstrate comprehension of simple, one-part, concerte directions, 80% accuracy, given skilled instruction, Moderate cueing, and extra time. Status: Progressing slowly as expected. Discharge ST. Short-Term Goal: Pt will demonstrate comprehension of simple, one-part, concerte directions, 80% accuracy, given skilled instruction, Maximal cueing, and extra time. Status: Progressing slowly as expected. Patient followed 70% of directions given maximal directions Speech Goal 2 Problem Solving Speech Goal 2 Comments Problem Solving Goals: Long-Term Goal: Pt will solve simple routine problems, for transfer and mobility safety, adaptive dressing, time and money management; with 80% accuracy, given Moderate cueing. Status: Progressing slowly as expected. Discharge ST. Short-Term Goal: Pt will solve simple routine problems, for transfer and mobility safety, adaptive dressing, time and money management; with 80% accuracy, given skilled instruction, Maximum cueing, and extra time. Status: Progressing slowly as expected. Social Work: Goals Discharge Plan return home with home care svs and family support Potential for Family Training pt's has participated in family training Anticipated Discharge Home Destination Discharge With home care svs and family support Care Plan: Care Plan ADL's - Improve/Maintain Start: 11/23/18 16:15 Freq: DAILY Status: Active Target: Protocol: Activity Type Activity Date Activity User E-Sign Co-Sign Detail Recorded Client Recorded Date Recorded By Document 12/14/18 10:48 [id number] 12/14/18 10:48 [id number] 12/14/18 10:48 PMRU Outcome: ADL's/ADL Transfers Orders/Interventions Occupational Therapy Evaluation & Treatment Communication Tool in Patient Room Device Yes Address Deficits Secondary To: fall s/p Right hip ad Patient to receive OT 5x/wk for 60-120 Therex min/day Self Care Management Group Therapy UE/LE ADL's with Assist Yes: modA ADL Transfers with Assist Yes: Britt Toileting: Transfers,Clothing Management Yes: Britt ,Hygeine w/Assist Light Kitchen/Laundry w/Assist No Outcome/Goals Met Pt is making gradual improvements in mobility, most STS occur with CGA today. She remains significantly limited overall by her difficulty with simple problem solving and by her difficulty following commands. Communication-Improve/Maintain Start: 11/23/18 12:46 Freq: DAILY Status: Active Target: Protocol: Activity Type Activity Date Activity User E-Sign Co-Sign Detail Recorded Client Recorded Date Recorded By Document 12/20/18 00:00 [id number] 12/20/18 00:32 [id number] 12/20/18 00:00 PMRU Outcome: Communication/Cognitive Status Outcome/Goals Met Comment calls out on occasion DVT Prophylaxis- Improve/Maintain Start: 11/23/18 12:46 Freq: QSHIFT Status: Active Target: Protocol: Activity Type Activity Date Activity User E-Sign Co-Sign Detail Recorded Client Recorded Date Recorded By Document 12/20/18 08:00 [id number] 12/20/18 09:00 [id number] 12/20/18 08:00 PMRU Outcome: DVT Prophylaxis Outcome/Goals Remains Free of DVT Complies with DVT Prophylaxis /Treatment TEDS Stockings on Every AM, Off at HS Progression Toward Outcome/Goals Progressing Discharge Planning - Improve/Maintain Start: 11/23/18 12:46 Freq: DAILY Status: Active Target: Protocol: Activity Type Activity Date Activity User E-Sign Co-Sign Detail Recorded Client Recorded Date Recorded By Document 12/20/18 00:32 [id number] [email or web address] 12/20/18 00:32 [id number] 12/20/18 00:32 PMRU Outcome: Discharge Planning Update Patient Family No Outcome/Goals Demonstrates Understanding of Discharge Plan Education-Improve/Maintain Start: 11/23/18 12:46 Freq: QSHIFT Status: Active Target: Protocol: Activity Type Activity Date Activity User E-Sign Co-Sign Detail Recorded Client Recorded Date Recorded By Document 12/20/18 08:00 [id number] 12/20/18 09:00 [id number] 12/20/18 08:00 PMRU Outcome: Education Outcome/Goals Demonstrates Skills Encourage Questions Progression Toward Outcome/Goals Progressing /GI-Improve/Maintain Start: 11/23/18 12:46 Freq: QSHIFT Status: Active Target: Protocol: Activity Type Activity Date Activity User E-Sign Co-Sign Detail Recorded Client Recorded Date Recorded By Document 12/20/18 08:00 [id number] 12/20/18 09:00 [id number] 12/20/18 08:00 PMRU Outcome: Genitourinary/ Gastrointestinal Genitourinary- Outcome/Goals Maintain/ Achieve Urinary Continence Maintain/ Achieve Adequate Urinary Output Gastrointestinal-Outcome/Goals Maintain/ Achieve Bowel Regularity in Accordance with Pt's Baseline Prevent Constipation Laxatives as Ordered Progression Toward Outcome/Goals - Progressing Progression Toward Outcome/Goals - GI Progressing Outcome/Goals Met Comment toileting q 2hr to prevent incontinence Medication Administration Start: 11/23/18 12:46 Freq: QSHIFT Status: Active Target: Protocol: Activity Type Activity Date Activity User E-Sign Co-Sign Detail Recorded Client Recorded Date Recorded By Document 12/20/18 08:00 [id number] 12/20/18 09:00 [id number] 12/20/18 08:00 PMRU Outcome: Medication Administration Assess Patient Knowledge/Teach Med Yes Education for all Meds Outcome/Goals Family/ Caregiver Administer Medications at Home Progression Towards Outcome/Goals Progressing Is Patient Going Home on Lovenox? No Mobility-Improve/Maintain Start: 12/14/18 10:48 Freq: DAILY@0400,1600 Status: Active Target: Protocol: Activity Type Activity Date Activity User E-Sign Co-Sign Detail Recorded Client Recorded Date Recorded By Document 12/20/18 09:30 [id number] [email or web address] 12/20/18 09:30 [id number] 12/20/18 09:30 Outcome: Mobility Outcome/Goals Maintain/ Achieve Baseline Mobility Status Improve Mobility Status Demonstrates Proper Use of Assistive Devices Progression Toward Outcome/Goals Progressing Pain/Comfort- Improve/Maintain Start: 11/23/18 12:46 Freq: QSHIFT Status: Complete Target: Protocol: Activity Type Activity Date Activity User E-Sign Co-Sign Detail Recorded Client Recorded Date Recorded By Document 12/14/18 15:28 [id number] 12/14/18 15:29 [id number] 12/14/18 15:28 PMRU Outcome: Pain/Comfort Outcome/Goals Achieves Acceptable Comfort/Pain Level as Determined by Patient/Condit Maintain Comfort Level Allowing Patient to Fully Participate in Rehab Outcome/Goals Met Maintain Comfort Level Allowing Patient to Fully Participate in Rehab Safety- Improve/Maintain Start: 11/23/18 12:46 Freq: QSHIFT Status: Active Target: Protocol: Activity Type Activity Date Activity User E-Sign Co-Sign Detail Recorded Client Recorded Date Recorded By Document 12/20/18 08:00 [id number] 12/20/18 09:00 [id number] 12/20/18 08:00 PMRU Outcome: Safety Outcome/Goals Remain Free of Injury or Harm Cooperates with Safety Measures for Least Restrictive Environment Prevent Falls/ Injury Progression Toward Outcome/Goals Progressing Outcome/Goals Met Comment PA in place Skin- Improve/Maintain Start: 11/23/18 12:46 Freq: QSHIFT Status: Complete Target: Protocol: Activity Type Activity Date Activity User E-Sign Co-Sign Detail Recorded Client Recorded Date Recorded By Document 12/14/18 15:28 [id number] 12/14/18 15:29 [id number] 12/14/18 15:28 PMRU Outcome: Skin Skin Risk Level Low Outcome/Goals Maintain/ Improve Skin Intergrity Surgical Incisions Healing Outcome/Goals Met Surgical Incisions Healing Medicine Note: Length of Stay: 3 days Anticipated Discharge Destination: Home Tentative Discharge Date: 12/23/18 Discharged to: Home
--- NOTE | 2018-12-20 18:52 | PN ---
Progress Note Date of Service: 12/20/18 Note: JARRETT MUSTAFA was visited. Therapy notes read and reviewed. She was discussed in interdisciplinary team rounds. She was complaining of left hip pain and an x- ray was ordered. She had some OA but no fractures seen. Current Medications: Active Medications Generic Name Dose Route Start Last Admin Trade Name Freq PRN Reason Stop Dose Admin Acetaminophen 650 mg 11/23/18 15:53 12/20/18 06:40 Tylenol Tab* PO 650 mg Q4H PRN Administration FEVER/PAIN Bisacodyl 10 mg 11/23/18 20:45 11/23/18 21:11 Dulcolax Supp* [place] 10 mg DAILY PRN Administration CONSTIPATION Docusate Sodium 100 mg 11/23/18 21:00 12/20/18 07:24 Colace Cap* PO 100 mg BID ABILIO Administration Donepezil HCl 10 mg 11/23/18 21:00 12/20/18 07:26 Aricept (Nf) PO 10 mg BID ABILIO Administration Heparin Sodium (Porcine) 5,000 units 11/23/18 22:00 12/20/18 14:09 Heparin Vial(*) SUBCUT 5,000 units Q8HR ABILIO Administration Hydrocortisone 1 applic 12/02/18 09:11 12/14/18 07:22 Hytone Cream 1%* TOPICAL 1 applic TID PRN Administration itching rash Magnesium Hydroxide 30 ml 11/23/18 15:53 Milk Of Magnesia Liq* PO Q6H PRN CONSTIPATION Memantine 10 mg 11/23/18 21:00 12/20/18 07:26 Namenda Tab* PO 10 mg BID ABILIO Administration Mirabegron 25 mg 12/16/18 09:00 12/20/18 07:25 Myrbetriq (Nf) PO 25 mg DAILY ABILIO Administration Polyethyl Glycol/Propylene Glycol 1 drop 11/23/18 21:00 12/20/18 07:26 Lubricant Eye Drops BOTH EYES 1 drop BID ABILIO Administration Polyethylene Glycol/Electrolytes 17 gm 11/24/18 09:00 12/20/18 07:25 Miralax* PO 17 gm DAILY ABILIO Administration Senna 2 tab 11/23/18 15:53 11/25/18 21:25 Senokot Tab* PO 2 tab BEDTIME PRN Administration CONSTIPATION Tramadol HCl 50 mg 12/14/18 18:30 12/20/18 07:24 Ultram* PO 50 mg Q6H PRN Administration PAIN - MODERATE TO SEVERE Vital Signs: Vital Signs Temp Pulse Resp BP Pulse Ox 98.2 F 77 16 114/49 97 12/20/18 16:27 12/20/18 16:27 12/20/18 16:27 12/20/18 16:27 12/20/18 16:27 Exam: GEN: no acute distress. alert and appropriate. poor memory and oriented to self. LUNGS: Clear to auscultation bilaterally HEART: regular rate and rhythm ABDOMEN: Soft, +bowel sounds, non-distended, non-tender EXTREMITIES: no edema. SKIN: rash fading NEUROLOGIC: BLE at least 4+/5 motor with normal sensation. She has difficulty following directions. Assessment/Plan: 1. Right Hip Fracture: WBAT. PT/OT. Follow up with Dr. Garland. [place] out 2. Cognitive Decline/Dementia: Aricept/Namenda. Seems worse on days after she did not sleep well. 3. DVT Prophylaxis: Heparin S/Q 4. Advance Directives: Full Code. is Surrogate Decision maker 5. Bladder Spasms/OAB: Resumed Myrbetriq; effect? 6. Rash on back: hydrocortisone cream tid prn. . 7. Leukocytosis: CBC better, this is a chronic problem. 12/20/18 18:52
[2018-12-21] MEDS: traMADol TAB* 50 MG PO PRN (01:05)
[2018-12-21] MEDS: Heparin VIAL(*) 5000 UNITS/ML VIAL (FIVE THOUSAND) SUBCUT SCH ×3 (05:40→20:55)
[2018-12-21] MEDS: Docusate CAP* 100 MG PO SCH ×2 (08:51→20:55)
[2018-12-21] MEDS: MEMANTINE 10 MG PO SCH ×2 (08:52→20:55)
[2018-12-21] MEDS: DONEPEZIL HCL 10 MG PO SCH ×2 (08:52→20:55)
[2018-12-21] MEDS: Polyethylene Glycol 3350* 17 GM PACKET PO SCH (08:53)
[2018-12-21] MEDS: PTO: Mirabegron (NF) 25 MG TAB PO SCH (08:53)
[2018-12-21] MEDS: PTO:Polyethyl Glycol/Propylene Gly OPHTH.SOLN BOTH EYES SCH ×2 (08:54→20:56)
[2018-12-21] MEDS: Acetaminophen TAB* 325 MG PO PRN (09:00)
--- NOTE | 2018-12-21 19:45 | PN ---
Progress Note Date of Service: 12/21/18 Note: JARRETT MUSTAFA was visited. Therapy notes read and reviewed. She has no complaints. Her hip x-ray did not show any fracture on the left. Current Medications: Active Medications Generic Name Dose Route Start Last Admin Trade Name Bubba PRN Reason Stop Dose Admin Acetaminophen 650 mg 11/23/18 15:53 12/21/18 09:00 Tylenol Tab* PO 650 mg Q4H PRN Administration FEVER/PAIN Bisacodyl 10 mg 11/23/18 20:45 11/23/18 21:11 Dulcolax Supp* [place] 10 mg DAILY PRN Administration CONSTIPATION Docusate Sodium 100 mg 11/23/18 21:00 12/21/18 08:51 Colace Cap* PO 100 mg BID ABILIO Administration Donepezil HCl 10 mg 11/23/18 21:00 12/21/18 08:52 Aricept (Nf) PO 10 mg BID ABILIO Administration Heparin Sodium (Porcine) 5,000 units 11/23/18 22:00 12/21/18 14:29 Heparin Vial(*) SUBCUT 5,000 units Q8HR ABILIO Administration Hydrocortisone 1 applic 12/02/18 09:11 12/14/18 07:22 Hytone Cream 1%* TOPICAL 1 applic TID PRN Administration itching rash Magnesium Hydroxide 30 ml 11/23/18 15:53 Milk Of Magnsanjay Liq* PO Q6H PRN CONSTIPATION Memantine 10 mg 11/23/18 21:00 12/21/18 08:52 Namenda Tab* PO 10 mg BID ABILIO Administration Mirabegron 25 mg 12/16/18 09:00 12/21/18 08:53 Myrbetriq (Nf) PO 25 mg DAILY ABILIO Administration Polyethyl Glycol/Propylene Glycol 1 drop 11/23/18 21:00 12/21/18 08:54 Lubricant Eye Drops BOTH EYES 1 drop BID ABILIO Administration Polyethylene Glycol/Electrolytes 17 gm 11/24/18 09:00 12/21/18 08:53 Miralax* PO 17 gm DAILY ABILIO Administration Senna 2 tab 11/23/18 15:53 11/25/18 21:25 Senokot Tab* PO 2 tab BEDTIME PRN Administration CONSTIPATION Tramadol HCl 50 mg 12/14/18 18:30 12/21/18 01:05 Ultram* PO 50 mg Q6H PRN Administration PAIN - MODERATE TO SEVERE Vital Signs: Vital Signs Temp Pulse Resp BP Pulse Ox 97.3 F 88 22 134/64 99 12/21/18 15:30 12/21/18 15:30 12/21/18 15:30 12/21/18 15:30 12/21/18 15:55 Exam: GEN: no acute distress. alert and appropriate. poor memory and oriented to self. LUNGS: Clear to auscultation bilaterally HEART: regular rate and rhythm ABDOMEN: Soft, +bowel sounds, non-distended, non-tender EXTREMITIES: no edema. SKIN: rash faded NEUROLOGIC: BLE at least 4+/5 motor with normal sensation. She has difficulty following directions. Assessment/Plan: 1. Right Hip Fracture: WBAT. PT/OT. Follow up with Dr. Garland. [place] out 2. Cognitive Decline/Dementia: Aricept/Namenda. Seems worse on days after she did not sleep well. 3. DVT Prophylaxis: Heparin S/Q 4. Advance Directives: Full Code. is Surrogate Decision maker 5. Bladder Spasms/OAB: Resumed Myrbetriq; effect? 6. Rash on back: hydrocortisone cream tid prn. . 7. Leukocytosis: CBC better, this is a chronic problem. 12/21/18 19:45
[2018-12-22] MEDS: Acetaminophen TAB* 325 MG PO PRN (02:15)
[2018-12-22] MEDS: Heparin VIAL(*) 5000 UNITS/ML VIAL (FIVE THOUSAND) SUBCUT SCH ×3 (06:15→21:53)
[2018-12-22] MEDS: Docusate CAP* 100 MG PO SCH ×2 (07:27→19:56)
[2018-12-22] MEDS: DONEPEZIL HCL 10 MG PO SCH ×2 (07:28→19:46)
[2018-12-22] MEDS: MEMANTINE 10 MG PO SCH ×2 (07:28→19:45)
[2018-12-22] MEDS: Polyethylene Glycol 3350* 17 GM PACKET PO SCH (07:29)
[2018-12-22] MEDS: PTO: Mirabegron (NF) 25 MG TAB PO SCH (07:29)
[2018-12-22] MEDS: PTO:Polyethyl Glycol/Propylene Gly OPHTH.SOLN BOTH EYES SCH ×2 (07:29→19:48)
[2018-12-22] MEDS: Hydrocortisone 1% CREAM* 30 GM TUBE TOPICAL PRN (09:02)
--- NOTE | 2018-12-22 20:39 | PN ---
Progress Note Date of Service: 12/22/18 Note: JARRETT MUSTAFA was visited. Therapy notes read and reviewed. She is set for discharge tomorrow. She has no complaints. Current Medications: Active Medications Generic Name Dose Route Start Last Admin Trade Name Freq PRN Reason Stop Dose Admin Acetaminophen 650 mg 11/23/18 15:53 12/22/18 02:15 Tylenol Tab* PO 650 mg Q4H PRN Administration FEVER/PAIN Bisacodyl 10 mg 11/23/18 20:45 11/23/18 21:11 Dulcolax Supp* [place] 10 mg DAILY PRN Administration CONSTIPATION Docusate Sodium 100 mg 11/23/18 21:00 12/22/18 19:56 Colace Cap* PO Not Given BID ABILIO Donepezil HCl 10 mg 11/23/18 21:00 12/22/18 19:46 Aricept (Nf) PO 10 mg BID ABILIO Administration Heparin Sodium (Porcine) 5,000 units 11/23/18 22:00 12/22/18 14:16 Heparin Vial(*) SUBCUT 5,000 units Q8HR ABILIO Administration Hydrocortisone 1 applic 12/02/18 09:11 12/22/18 09:02 Hytone Cream 1%* TOPICAL 1 applic TID PRN Administration itching rash Magnesium Hydroxide 30 ml 11/23/18 15:53 Milk Of Magnesia Liq* PO Q6H PRN CONSTIPATION Memantine 10 mg 11/23/18 21:00 12/22/18 19:45 Namenda Tab* PO 10 mg BID ABILIO Administration Mirabegron 25 mg 12/16/18 09:00 12/22/18 07:29 Myrbetriq (Nf) PO 25 mg DAILY ABILIO Administration Polyethyl Glycol/Propylene Glycol 1 drop 11/23/18 21:00 12/22/18 19:48 Lubricant Eye Drops BOTH EYES 1 drop BID ABILIO Administration Polyethylene Glycol/Electrolytes 17 gm 11/24/18 09:00 12/22/18 07:29 Miralax* PO 17 gm DAILY ABILIO Administration Senna 2 tab 11/23/18 15:53 11/25/18 21:25 Senokot Tab* PO 2 tab BEDTIME PRN Administration CONSTIPATION Tramadol HCl 50 mg 12/14/18 18:30 12/21/18 01:05 Ultram* PO 50 mg Q6H PRN Administration PAIN - MODERATE TO SEVERE Vital Signs: Vital Signs Temp Pulse Resp BP Pulse Ox 97.2 F 83 18 130/63 100 12/22/18 18:22 12/22/18 18:22 12/22/18 18:22 12/22/18 18:22 12/22/18 18:22 Exam: GEN: no acute distress. alert and appropriate. poor memory and oriented to self. LUNGS: Clear to auscultation bilaterally HEART: regular rate and rhythm ABDOMEN: Soft, +bowel sounds, non-distended, non-tender EXTREMITIES: no edema. SKIN: rash faded NEUROLOGIC: BLE at least 4+/5 motor with normal sensation. She has difficulty following directions. Assessment/Plan: 1. Right Hip Fracture: WBAT. PT/OT. Follow up with Dr. Garland. [place] out 2. Cognitive Decline/Dementia: Aricept/Namenda. Seems worse on days after she did not sleep well. 3. DVT Prophylaxis: Heparin S/Q 4. Advance Directives: Full Code. is Surrogate Decision maker 5. Bladder Spasms/OAB: Resumed Myrbetriq; effect? 6. Rash on back: hydrocortisone cream tid prn. . 7. Leukocytosis: CBC better, this is a chronic problem. 12/22/18 20:39
[2018-12-23] MEDS: Heparin VIAL(*) 5000 UNITS/ML VIAL (FIVE THOUSAND) SUBCUT SCH ×2 (05:48→14:08)
[2018-12-23 06:03] VITALS: BP 121/54
[2018-12-23] MEDS: Docusate CAP* 100 MG PO SCH ×2 (08:19→09:25)
[2018-12-23] MEDS: DONEPEZIL HCL 10 MG PO SCH (09:21)
[2018-12-23] MEDS: PTO: Mirabegron (NF) 25 MG TAB PO SCH (09:21)
[2018-12-23] MEDS: MEMANTINE 10 MG PO SCH (09:22)
[2018-12-23] MEDS: PTO:Polyethyl Glycol/Propylene Gly OPHTH.SOLN BOTH EYES SCH (09:22)
[2018-12-23] MEDS: Polyethylene Glycol 3350* 17 GM PACKET PO SCH (09:25)
--- NOTE | 2018-12-24 15:30 | DS ---
CC: Dr. Long Jacobs * DISCHARGE SUMMARY: DATE OF ADMISSION: 11/23/18 DATE OF DISCHARGE: 12/23/18 DISCHARGE DIAGNOSES: 1. Right hip fracture. 2. Dementia. 3. Leukocytosis. 4. Overactive bladder. HISTORY OF PRESENT ILLNESS AND HOSPITAL COURSE: For a complete history of the events leading up to her rehab stay, please see the history and physical dictated by me on 11/23/18. The patient was noted to have an elevated white blood cell count throughout her stay. On a routine blood draw on 12/02/18, her white count was noted to be 17,000. She had a second fever workup, which was benign. Her white blood cell count continued to rise and she had a hematology consultation with Dr. Rowe, who recommended just following her and repeating a CBC in a week. The other blood cell lines seemed to be normal by peripheral smear. The patient otherwise was largely medically stable. She was started on a drug Myrbetriq (mirabegron) to deal with her overactive bladder. It is unclear if it had any effect. The patient remained on Namenda as well as Aricept for her dementia. The patient's right hip healed well. Her arian were removed while on the rehab unit. She was maintained on heparin for DVT prophylaxis. The patient had a repeat urinalysis on 12/08/18, which appeared to be dirty and she was given Bactrim for 2 days, but her urine culture was negative, so this was discontinued. Otherwise, the patient was medically stable. She was seen by both Physical and Occupational Therapy as well as Speech Therapy. She did make gains with all 3 disciplines. With physical therapy at the time of admission, the patient required an easy inter com servicer order to transfer, she was unable to ambulate. With occupational therapy at the time of admission, the patient was max assist for upper body dressing, total assistance for lower body dressing, total assistance for toileting, total assistance for toilet transfers. By the time of discharge, the patient was contact guard for transfers, contact guard to ambulate 300 feet with a rolling walker. She required min assist to go up and down a flight of stairs. She was contact guard for toileting and toilet transfers and she required min assist for dressing upper and lower body. The patient's came in for family training on several occasions prior to discharge. He decided he was going to hire extra help through the [facility] prior to discharge. The patient was seen by Speech Therapy. She was noted to have significant memory problems. It was not felt that speech therapy would improve her situation. The patient was discharged home on 12/23/18 with her . CONDITION AT DISCHARGE: Stable. DISCHARGE DIET: Regular. DISCHARGE MEDICATIONS: Included: 1. Senokot 2 tablets at bedtime as needed. 2. Colace 100 mg twice a day. 3. Aricept 10 mg twice a day. 4. Namenda 10 mg twice a day. 5. MiraLAX 17 g in water daily as needed. 6. Mirabegron 25 mg daily. 7. She also was given a small supply of tramadol. SERVICES AFTER DISCHARGE: Through the [facility], the has hired some early childhood aide classroom time 7 days a week. In addition, through [facility], the patient will have skilled physical therapy and skilled occupational therapy and a home health aide. Follow up with Dr. Michael Garland, her orthopedic surgeon, in 1 to 2 weeks. She will also follow up with her primary care doctor, Dr. Long Jacobs. TIME SPENT: Time for this discharge was approximately 50 minutes, greater than half of that was spent with the patient and her discussing post- rehabilitation therapies, medications, and followup. [id number]/[facility] #: [id number] SUSANNA
== END 2018-12-23 14:05 | disposition home health service (06) | DRG 560 ==
LOC: PMRU 11:20
PROVIDERS: ADMIT Physical Medicine & Rehabilitation; ATTEND Physical Medicine & Rehabilitation
PROC: F07Z5ZZ Bed Mobility Treatment (ICD-10-PCS; principal; 2018-11-23)
PROC: F07Z9ZZ Gait Training/Functional Ambulation Treatment (ICD-10-PCS; 2018-11-23)
PROC: F07Z8ZZ Transfer Training Treatment (ICD-10-PCS; 2018-11-23)
PROC: F08Z0ZZ Bathing/Showering Techniques Treatment (ICD-10-PCS; 2018-11-23)
PROC: F08Z1ZZ Dressing Techniques Treatment (ICD-10-PCS; 2018-11-23)
PROC: F08Z3ZZ Feeding/Eating Treatment (ICD-10-PCS; 2018-11-23)
DX: S72.001D Fracture of unspecified part of neck of right femur, subsequent encounter for closed fracture with routine healing (principal); J98.11 Atelectasis; W01.0XXD Fall on same level from slipping, tripping and stumbling without subsequent striking against object, subsequent encounter; F03.90 Unspecified dementia, unspecified severity, without behavioral disturbance, psychotic disturbance, mood disturbance, and anxiety; N32.89 Other specified disorders of bladder; D72.829 Elevated white blood cell count, unspecified; M16.12 Unilateral primary osteoarthritis, left hip; L08.0 Pyoderma; R32 Unspecified urinary incontinence; Z79.899 Other long term (current) drug therapy; Z80.6 Family history of leukemia
CPT/HCPCS: 36415; 71046; 80053; 81003; 81015; 83605; 85025; 85652; 87040; 87086; A9270-GY; G0515-GO; J1644